=== PATIENT | female | born 1940 | race Caucasian/White ===

== ENCOUNTER 2019-02-05 11:23 | Emergency (ER) | payer MEDICARE ==
[2019-02-05 12:12] LABS: #Eosinphils 0.5 thou/uL (0.0-0.7); #Lymphocytes 0.8 thou/uL (1.20-3.40); #Monocytes 0.5 thou/uL (0.11-0.59); #Neutrophils 2.8 thou/uL (1.40-6.50); %Basophils 0.9 % (0.0-1.0); %Eosinophils 11.3 % (0.0-10.0); %Lymphocytes 16.4 % (21.0-51.0); %Monocytes 11.5 % (0.0-10.0); %Neutrophils 59.9 % (42.0-75.0); Hemoglobin 9.8 g/dL (12.0-16.0); Mean Corpuscular HGB CONC 32.8 g/dL (32.0-36.0); Mean Corpuscular Hemoglobin 30.5 pg (27.0-31.0); Mean Corpuscular Volume 92.9 fL (78.0-98.0); Mean Platelet Volume 8.8 fL (7.4-10.4); Platelet Count 160 thou/uL (130-400); RBC Distribution Width 12.6 % (11.5-14.5); Red Blood Cell (RBC) Count 3.23 mill/uL (4.20-5.40); White Blood Cell (WBC) Count 4.7 thou/uL (4.8-10.8)
[2019-02-05 12:33] LABS: ALT (SGPT) 20 U/L (8-55); AST (SGOT) 18 U/L (5-34); Albumin 4.2 g/dL (3.4-4.8); Alkaline Phosphatase 82 U/L (40-110); Anion Gap 12 mmol/L (10-20); BUN (Urea Nitrogen) 22 mg/dL (9.8-20.1); Bilirubin, Total 0.4 mg/dL (0.2-1.2); Calc. Creatinine Clearance 0 mL/min (70-130); Calcium 9.7 mg/dL (7.8-10.44); Carbon Dioxide 34 mmol/L (23-31); Chloride 101 mmol/L (98-107); Estimated GFR-MDRD 55; Globulin 2.9 g/dL (2.4-3.5); Glucose 119 mg/dL (83-110); Potassium 4.1 mmol/L (3.5-5.1); Protein, Total 7.1 g/dL (6.0-8.3); Sodium 143 mmol/L (136-145)
[2019-02-05] MEDS ORDERED: methylPREDNISolone Sod Succ/PF 125 MG/2 ML VIAL ONE (12:41)
--- NOTE | 2019-02-05 13:28 | RAD ---
FRONTAL RADIOGRAPH CHEST: Date: 02/05/19 COMPARISON: 04/04/14. HISTORY: Pneumonia, cough, shortness of breath. FINDINGS: Heart and mediastinal contours are stable. Mild pulmonary vascular prominence. No pneumothorax or ple ural fluid, No focal consolidation or alveolar edema. There is mild rounded density with blunting of the costophrenic angle on the right which may signify redundant soft tissues, extrapleural fat, or pulmonary nodule. Recommend follow-up nonemergent PA and lateral imaging of the chest. IMPRESSION: Mild irregular contour of the right cardiophrenic angle, significance uncertain on this examination. Follow-up PA and lateral imaging of the chest. CODE T. POS: OFF
== END 2019-02-05 16:00 | disposition home or self-care (01) ==
LOC: ERS 11:23
DX: J44.1 Chronic obstructive pulmonary disease with (acute) exacerbation (principal); I11.0 Hypertensive heart disease with heart failure; I50.9 Heart failure, unspecified; I48.91 Unspecified atrial fibrillation; J44.9 Chronic obstructive pulmonary disease, unspecified; E11.9 Type 2 diabetes mellitus without complications; Z79.82 Long term (current) use of aspirin; Z79.01 Long term (current) use of anticoagulants; Z79.899 Other long term (current) drug therapy
CPT/HCPCS: 36415; 71045; 80053; 83880; 84484; 85025; 93005; 94640; 96374; J2930; J7620

== ENCOUNTER 2019-03-21 10:38 | Outpatient (CLI) | payer MEDICARE ==
--- NOTE | 2019-03-21 11:31 | MMO ---
Bilateral MAMMO Bilat Screen [facility]. CLINICAL HISTORY: Patient is 78 years old and is seen for screening. The patient has no family history of breast cancer. The patient has no personal history of cancer. VIEWS: The views performed were: bilateral craniocaudal with tomosynthesis; bilateral mediolateral oblique with tomosynthesis; right mediolateral oblique; right exaggerated craniocaudal; and cleavage view. This study has been interpreted with the assistance of computer-aided detection. MAMMOGRAM FINDINGS: There are scattered fibroglandular densities. Finding 1: There are stable benign appearing calcifications seen in both breasts. Finding 2: There are stable nodules seen in both breasts. There are no suspicious masses, suspicious calcifications, or new areas of architectural distortion. IMPRESSION: THERE IS NO MAMMOGRAPHIC EVIDENCE OF MALIGNANCY. A ROUTINE FOLLOW-UP MAMMOGRAM IN 1 YEAR IS RECOMMENDED. THE RESULTS OF THIS EXAM WERE SENT TO THE PATIENT. ACR BI-RADS Category 2 - Benign finding MAMMOGRAPHY NOTE: 1. A negative mammogram report should not delay a biopsy if a dominant of clinically suspicious mass is present. 2. Approximately 10% to 15% of breast cancers are not detected by mammography. 3. Adenosis and dense breasts may obscure an underlying neoplasm. Reported by: ABRAHAM BURRIS MD Electonically Signed: [id number]
== END 2019-03-21 10:39 | disposition home or self-care (01) ==
LOC: BICMAMMO 10:38
PROVIDERS: ATTEND Family Medicine
DX: Z12.31 Encounter for screening mammogram for malignant neoplasm of breast (principal)
CPT/HCPCS: 77063; 77067

== ENCOUNTER 2019-10-07 01:41 | Inpatient (IN) | payer MEDICARE, OTHER ==
[2019-10-07 02:23] LABS: #Eosinphils 0.3 thou/uL (0.0-0.7); #Lymphocytes 1.3 thou/uL (1.20-3.40); #Monocytes 0.7 thou/uL (0.11-0.59); #Neutrophils 6.7 thou/uL (1.40-6.50); %Basophils 0.4 % (0.0-1.0); %Eosinophils 3.3 % (0.0-10.0); %Lymphocytes 14.2 % (21.0-51.0); %Neutrophils 74.1 % (42.0-75.0); Hemoglobin 8.7 g/dL (12.0-16.0); Mean Corpuscular HGB CONC 32.7 g/dL (32.0-36.0); Mean Corpuscular Hemoglobin 31.3 pg (27.0-31.0); Mean Corpuscular Volume 95.8 fL (78.0-98.0); Mean Platelet Volume 9.5 fL (7.4-10.4); Platelet Count 194 thou/uL (130-400); RBC Distribution Width 12.3 % (11.5-14.5); Red Blood Cell (RBC) Count 2.79 mill/uL (4.20-5.40)
[2019-10-07 02:29] LABS: INR-International Normal Ratio 2.3; Prothrombin Time 25.1 sec (12.0-14.7)
[2019-10-07 02:30] LABS: PTT 46.1 sec (22.9-36.1)
[2019-10-07 02:55] LABS: ALT (SGPT) 18 U/L (8-55); AST (SGOT) 18 U/L (5-34); Alkaline Phosphatase 78 U/L (40-110); BUN (Urea Nitrogen) 33 mg/dL (9.8-20.1); Bilirubin, Total 0.5 mg/dL (0.2-1.2); Calc. Creatinine Clearance 0 mL/min (70-130); Calcium 9.7 mg/dL (7.8-10.44); Estimated GFR-MDRD 51; Globulin 2.7 g/dL (2.4-3.5); Glucose 195 mg/dL (83-110); Protein, Total 6.7 g/dL (6.0-8.3)
[2019-10-07 03:05] LABS: Anion Gap 15 mmol/L (10-20); Carbon Dioxide 37 mmol/L (23-31); Chloride 98 mmol/L (98-107); Potassium 4.9 mmol/L (3.5-5.1); Sodium 145 mmol/L (136-145)
[2019-10-07 06:12] LABS: Troponin I 0.017 ng/mL (< 0.028)
--- NOTE | 2019-10-07 08:38 | RAD ---
Exam: Chest one view HISTORY:Chest pain. Comparison: 02/05/2019 FINDINGS: Cardiac silhouette:Mild cardiomegaly. Calcification of the mitral annulus. Aorta: Atherosclerosis Pulmonary vessels: Normal Costophrenic angles: Clear LUNGS: Possible right lower lobe infiltrate. Additional chronic lung parenchymal changes are noted. Pneumothorax: None Osseous abnormalities: None IMPRESSION: 1. Cardiomegaly. 2. Right lower lobe opacity likely representing edema or infiltrate. Correlate clinically.
[2019-10-07] MEDS ORDERED: Non-Formulary Item 1 EACH (Albuterol Sulfate Hfa (Or) 2 PUFF) INH PRN (09:44)
[2019-10-07] MEDS ORDERED: Non-Formulary Item 1 EACH (Albuterol Sulfate [Ventolin Hfa] 2 PUFF) INH PRN (09:44)
[2019-10-07] MEDS ORDERED: Dextrose 5% in Water 1,000 ML IV PRN (09:44)
[2019-10-07] MEDS ORDERED: Nitroglycerin 0.4 MG TAB (25 Tab Bottle) PO PRN (09:44)
[2019-10-07] MEDS ORDERED: Dextrose 50% Abboject 50 ML SYRINGE SLOW IVP PRN (09:44)
[2019-10-07 10:04] LABS: Troponin I 0.015 ng/mL (< 0.028)
--- NOTE | 2019-10-07 10:25 | HP ---
DISCHARGE DISPOSITION: Sky Mahan MD FACILITY MANAGER: Parker Shirley MD CHIEF COMPLAINT: "I have real bad sharp pains in my chest in left side." HISTORY OF PRESENT ILLNESS: Ms. Gilman is a very pleasant 79-year-old female who has a history of hypertension and diabetes mellitus. She also has a history of coronary artery disease and says that she was in [place] and had 2 cardiac stents placed last year. She apparently had been doing fairly well since then except in the last month or so, she noticed that when she tried to walk, she would get sharp pains in the left side of her chest and in the last week she has been getting sharp pain in her left chest, which would be unprovoked by any activity and also did not seem to be in relationship to eating. She says when the pains occur it would "take her breath away" and these pains would last anywhere from 15 to 20 minutes. She also had some nausea associated with it and she says that she feels dizzy "all the time." This has not changed. She has noted that she has to sleep propped up on more pillows than usual. Normally, she sleeps on 3 pillows, but lately she has had to increase these and she also notes some palpitations and says that she can tell when her heart goes in and out of atrial fibrillation. She fell at home and could not get up and she says that she believes this is related to whatever is going on in her chest. Her daughter had called 911 and brought her up to the ER for evaluation. REVIEW OF SYSTEMS: All systems were reviewed and are negative except for that mentioned in the history of present illness. PAST MEDICAL HISTORY: Significant for atrial fibrillation, COPD, hypertension, diabetes mellitus, hyperlipidemia, coronary artery disease, and osteoarthritis. PAST SURGICAL HISTORY: She has had bladder stone removed and bilateral total knee replacements as well as 2 stents placed a year ago. ALLERGIES: NO ALLERGIES, BUT SHE IS INTOLERANT TO CODEINE WHICH MAKES HER NAUSEATED. SOCIAL HISTORY: She is , but . She is a former smoker. She quit 10 years ago and prior to that she says she smoked "many years." She has 3 children of her own and Holly, who is her oldest daughter is her surrogate decision maker, but she also lives with her daughter Ebony, who can make decisions as well and she would like to be a full code. FAMILY HISTORY: Significant for cancer, diabetes, and congestive heart failure. CURRENT MEDICATIONS: Include; 1. Albuterol inhaler 2 puffs q.4 hours as needed. 2. Alprazolam 0.5 mg p.o. b.i.d. 3. Aspirin 81 mg p.o. daily. 4. Lipitor 40 mg p.o. daily. 5. Plavix 75 mg p.o. daily. 6. Colchicine 0.6 mg 1 to 2 tablets daily. 7. Isosorbide mononitrate extended release 30 mg p.o. daily. 8. Lisinopril 20 mg daily. 9. Metformin 500 mg p.o. daily. 10. Metoprolol extended release 50 mg p.o. twice a day. 11. Potassium chloride 10 mEq daily. 12. Aldactone 25 mg p.o. daily. 13. Coumadin 5 mg p.o. daily. 14. Lasix 20 mg p.o. daily. PHYSICAL EXAMINATION: GENERAL: She is alert and oriented. She appears to be in no acute distress. She is well developed and well nourished. VITAL SIGNS: Blood pressure was 176/74, heart rate 86, respiratory rate is 16, temperature is 97.6, and O2 saturation was 100% on room air. HEENT: Her pupils are equal, round, and reactive to light. Extraocular muscles are intact. Her sclerae are anicteric. Throat, there is no erythema, no exudates. NECK: No adenopathy. No bruits. LUNGS: She did have some mild expiratory wheeze and occasional rhonchi. There are no rales. CARDIOVASCULAR: She had a normal S1 and S2. I did not appreciate an S3 or S4. No murmurs, clicks, or rubs. ABDOMEN: Obese. It is soft, nontender, and nondistended. Positive for bowel sounds. There is no rebound or guarding. No organomegaly. EXTREMITIES: She had some very mild nonpitting edema. There is no calf tenderness. No joint effusions. NEUROLOGIC: Grossly nonfocal. SKIN AND INTEGUMENT: No significant skin changes. No rash. LABORATORY AND IMAGING: On her chest x-ray, she has evidence of cardiomegaly as well as some haziness in the right lower to mid lung valdivia and this is per my reading on her EKG. The rhythm is regular. However, there are no significant P waves before the QRS. Therefore, it is an undetermined rhythm, the rate was 82. There was nonspecific ST wave changes. On the labs, the white blood cell count is 9, hemoglobin 8.7, hematocrit is 26.7, and platelet count is 194. Her INR was 2.3. On her chemistry; sodium is 145, potassium 4.9, chloride is 98, CO2 is 37, BUN of 33, creatinine 1.04, glucose is 195, and troponin is 0.027. ASSESSMENT: 1. This is a very pleasant 79-year-old female who has a history of hypertension, diabetes, as well as coronary artery disease. She had a stent placement, she says in October of last year in [place]. She had been doing well until the last month, where it appears as if she may be experiencing crescendo angina. She says her symptoms are similar to what she had when she had her stents placed. Given this, she will be placed on observation. We will continue to trend her cardiac enzymes, place her on nitro paste and aspirin, continue her Plavix. We will get an echocardiogram to assess her wall motion and also consult Cardiology for further evaluation. We may also need to see if we can obtain the records from [place]. 2. Diabetes mellitus. We will go ahead and reconcile and restart her home medications with the exception of metformin and continue a sliding scale insulin. 3. Permanent atrial fibrillation. Her heart rate is stable. She appears to be adequately anticoagulated. Her INR is therapeutic and her heart rate is stable. 4. Hypertension. Her blood pressure appears to be a little bit on the higher side. Once again, we will reconcile and restart her home medications and have p.r.n. medications available as needed. Job ID: [id number]
[2019-10-07] MEDS: Nitroglycerin 2% Ointment 1 INCH/1 GM Packet TOP SCH ×2 (13:54→20:48)
[2019-10-07 14:21] LABS: SARS-CoV-2 MS2 Positive; SARS-CoV-2 N Gene Negative; SARS-CoV-2 S Gene Negative; SARS-CoV-2 by NAA Not Detected (NotDetected); SARS-CoV-2 orf1ab Negative
[2019-10-07] MEDS ORDERED: Warfarin Sodium 5 MG TAB PO SCH (17:00)
[2019-10-07] MEDS: Acetaminophen 325 MG TAB PO PRN (20:48)
[2019-10-07] MEDS: Famotidine 20 MG TAB PO SCH (20:48)
[2019-10-08 04:34] LABS: #Eosinphils 0.4 thou/uL (0.0-0.7); #Lymphocytes 1.4 thou/uL (1.20-3.40); #Monocytes 0.7 thou/uL (0.11-0.59); #Neutrophils 5.9 thou/uL (1.40-6.50); %Basophils 0.5 % (0.0-1.0); %Eosinophils 4.2 % (0.0-10.0); %Lymphocytes 16.4 % (21.0-51.0); %Monocytes 8.3 % (0.0-10.0); %Neutrophils 70.7 % (42.0-75.0); Hemoglobin 7.7 g/dL (12.0-16.0); Mean Corpuscular Hemoglobin 31.9 pg (27.0-31.0); Mean Corpuscular Volume 96.7 fL (78.0-98.0); Mean Platelet Volume 9.8 fL (7.4-10.4); Platelet Count 160 thou/uL (130-400); RBC Distribution Width 12.3 % (11.5-14.5); Red Blood Cell (RBC) Count 2.42 mill/uL (4.20-5.40); White Blood Cell (WBC) Count 8.4 thou/uL (4.8-10.8)
[2019-10-08 04:37] LABS: INR-International Normal Ratio 1.7; Prothrombin Time 19.6 sec (12.0-14.7)
[2019-10-08 04:55] LABS: BUN (Urea Nitrogen) 28 mg/dL (9.8-20.1); Calc. Creatinine Clearance 88 mL/min (70-130); Calcium 8.9 mg/dL (7.8-10.44); Cardiac Risk 2.4 (Less than 4.5); Cholesterol 89 mg/dl (< 200 Desired); Estimated GFR-MDRD 69; Glucose 159 mg/dL (83-110); HDL Cholesterol 37 mg/dL (>60 Neg Risk); LDL Cholesterol, Calculated 31 mg/dL; Triglycerides 104 mg/dL (Less than 150)
[2019-10-08 05:04] LABS: Anion Gap 13 mmol/L (10-20); Carbon Dioxide 38 mmol/L (23-31); Chloride 96 mmol/L (98-107); Potassium 4.6 mmol/L (3.5-5.1); Sodium 142 mmol/L (136-145)
[2019-10-08] MEDS: Nitroglycerin 2% Ointment 1 INCH/1 GM Packet TOP SCH (05:48)
[2019-10-08] MEDS: Clopidogrel Bisulfate 75 MG TAB PO SCH (08:13)
[2019-10-08] MEDS: Atorvastatin Calcium 40 MG TAB PO SCH (08:13)
[2019-10-08] MEDS: Aspirin 81 mg Enteric Coated Tablet PO SCH (08:13)
[2019-10-08] MEDS: Lisinopril 20 MG TAB PO SCH (08:14)
[2019-10-08] MEDS: Famotidine 20 MG TAB PO SCH (08:14)
[2019-10-08] MEDS: Spironolactone 25 MG TAB PO SCH (08:14)
--- NOTE | 2019-10-08 08:43 | CON ---
DATE OF CONSULTATION: 10/07/2019 REASON FOR CONSULTATION: Shortness of breath and chest pain. HISTORY OF PRESENT ILLNESS: Ms. Gilman is a pleasant 79-year-old woman whom I have seen and evaluated in the past. She does have a previous history of CAD, status post stent placement. She also recently underwent a noninvasive stress study with a cardiac PET study in April, which showed a normal LVEF and no significant ischemia. Ms. Gilman complains of shortness of breath. This is her main complaint. She states she has difficulty with walking short distances. She does have associated chest pressure. No nausea, vomiting, or other associated symptoms. She also appears to be anemic with a hemoglobin of 8.7. She also appears pale, suggesting worsening anemia. PAST MEDICAL HISTORY: Hypertension; CAD, status post stent placement; paroxysmal atrial fibrillation, on anticoagulation therapy; chronic diastolic dysfunction; COPD; asthma; and diastolic dysfunction. HOME MEDICATIONS: Include: 1. Vitamin B12. 2. Alprazolam. 3. Atorvastatin. 4. Isosorbide. 5. Vitamin D. 6. Metoprolol. 7. Plavix. 8. Ventolin. 9. Lisinopril. 10. Amlodipine. 11. Lasix. 12. Gabapentin. 13. Metformin. 14. Spironolactone. 15. Coumadin. 16. Aspirin. SURGICAL HISTORY: Knee replacement, hysterectomy, bladder suspension, and previous stent placement in [place]. SOCIAL HISTORY: No current tobacco or alcohol use. FAMILY HISTORY: Negative for CAD. REVIEW OF SYSTEMS: A 10-point review of systems is reviewed as above, otherwise negative. PHYSICAL EXAMINATION: VITAL SIGNS: Blood pressure 166/71, pulse 81, and temp 98.4. GENERAL: Patient is a pleasant 79-year-old who is in no acute distress. The patient appears their stated age. The patient does appear pale. NEUROLOGIC: The patient is alert and oriented x3 with no focal neurologic deficits. HEENT: Sclerae without icterus. Mouth has moist mucous membranes with normal pallor. NECK: No JVD. Carotid upstroke brisk. No bruits bilaterally. LUNGS: Clear to auscultation with unlabored respirations. BACK: No scoliosis or kyphosis. CARDIAC: Regular rate and rhythm with normal S1 and S2. No S3 or S4 noted. No significant rubs, murmurs, thrills, or gallops noted throughout the precordium. PMI is not displaced. There is no parasternal heave. ABDOMEN: Soft, nontender, nondistended. No peritoneal signs present. No hepatosplenomegaly. No abnormal striae. EXTREMITIES: 2+ femoral and 2+ dorsalis pedis pulses. No cyanosis, clubbing, or edema. SKIN: No gross abnormalities. PERTINENT LABS: Hemoglobin 8.7, down from 10.7 in August. Creatinine 0.81 and chloride 96. IMPRESSION: 1. Shortness of breath. 2. Chest pain. 3. Anemia. 4. Coronary artery disease. 5. Status post stent placement. RECOMMENDATIONS: Ms. Gilman does appear pale. I am concerned about worsening anemia. If her anemia stabilizes or improves with her current symptoms, would therefore recommend coronary angiography and possible PCI. I discussed the procedure in full detail with Ms. Gilman. Risks including, but not limited to the following: , stroke, DC, need for emergency surgery, loss of limb, bleeding, and infection, as well as a reaction to the dye causing kidney failure and needing long-term dialysis. I also discussed the risks of PCI to include all of the above including coronary dissection and perforation in addition to acute stent thrombosis and restenosis. All questions about the procedure were answered. Given the above, the patient agreed to proceed with coronary angiography and possible PCI. All questions were answered. Given the above, the patient agreed to proceed with above procedure. We will repeat her CBC in a.m. If worsening anemia, her symptom is likely secondary to anemia given a normal recent stress study. We will, therefore, work up anemia. Otherwise, I have no further recommendations. Job ID: [id number]
[2019-10-08] MEDS ORDERED: WARFARIN SODIUM 5 MG PO SCH (09:00)
[2019-10-08] MEDS ORDERED: Docusate 100 MG CAP PO PRN (09:53)
[2019-10-08] MEDS ORDERED: Milk Of Magnesia 30 ML UDCUP PO PRN (09:53)
[2019-10-08] MEDS ORDERED: Furosemide 20 MG TAB PO SCH ×2 (09:55→10:00)
--- NOTE | 2019-10-08 09:58 | PDOC.HOSPP ---
- Subjective Encounter Date: 10/08/19 Encounter Time: 09:56 Subjective: Ms. Gilamn was seen today in follow-up of chest pain. She says she had another episode this morning. She noting any dark stools. She says she is aware she is anemic, but does not know the reason for it.She admits to having ulcers in the past. - Objective Vital Signs & Weight: Vital Signs (12 hours) Temp Pulse Resp BP BP Pulse Ox 10/08/19 08:11 97.9 F 80 16 153/64 H 99 10/08/19 04:00 98.8 F 79 18 148/65 H 99 10/08/19 01:17 98 Weight Weight 211 lb 3.2 oz I&O: 10/07/19 10/08/19 10/09/19 06:59 06:59 06:59 Intake Total 1060 Balance 1060 Result Diagrams: 10/08/19 04:05 10/08/19 04:05 Additional Labs: Accuchecks 10/08/19 10/07/19 10/07/19 05:49 21:08 17:13 POC Glucose 170 H 190 H 143 H 10/07/19 10:46 POC Glucose 182 H Hospitalist ROS - Medication Medications: Active Medications Generic Name Dose Route Start Last Admin Trade Name Freq PRN Reason Stop Dose Admin Acetaminophen 650 mg 10/07/19 09:44 10/07/19 20:48 Tylenol PO 650 mg Q4H PRN Administration Headache/Fever/Mild Pain (1-3) Aspirin 81 mg 10/08/19 09:00 10/08/19 08:13 Ecotrin PO 81 mg DAILY DUONG Administration Atorvastatin Calcium 40 mg 10/08/19 09:00 10/08/19 08:13 Lipitor PO 40 mg DAILY DUONG Administration Clopidogrel Bisulfate 75 mg 10/08/19 09:00 10/08/19 08:13 Plavix PO 75 mg DAILY DUONG Administration Lisinopril 50 mg 10/08/19 09:00 10/08/19 08:14 Zestril PO 50 mg DAILY DUONG Administration Metoprolol Succinate 50 mg 10/07/19 21:00 10/08/19 08:14 Toprol Xl PO 50 mg BID DUONG Administration Nitroglycerin 0.5 inch 10/07/19 14:00 10/08/19 05:48 Nitro-Bid 2% Ointment TOP 0.5 inch Q8HR DUONG Administration Spironolactone 25 mg 10/08/19 09:00 10/08/19 08:14 Aldactone PO 25 mg DAILY DUONG Administration - Exam General Appearance: NAD, awake alert Eye: PERRL, anicteric sclera Heart: RRR, no murmur, no gallops, no rubs, normal peripheral pulses Respiratory: no rales, rhonchi, wheezes (+ occasional rhonchi and wheezing, but kn rales) Gastrointestinal: soft, non-tender, non-distended, normal bowel sounds, no palpable masses Extremities: no cyanosis, no clubbing, 1+ LE edema Hosp A/P (1) Crescendo angina Status: Acute (2) Chronic anticoagulation Code(s): Z79.01 - GUT PULLER (CURRENT) USE OF 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 Status: Acute (3) Anemia Code(s): D64.9 - ANEMIA, UNSPECIFIED Status: Acute (4) Atrial fibrillation Code(s): I48.91 - UNSPECIFIED ATRIAL FIBRILLATION Status: Acute (5) Hypertension Code(s): I10 - ESSENTIAL (PRIMARY) HYPERTENSION Status: Chronic (6) Diabetes mellitus type 2 in obese Code(s): E11.69 - TYPE 2 DIABETES MELLITUS WITH OTHER SPECIFIED COMPLICATION; E66.9 - OBESITY, UNSPECIFIED Status: Chronic - Plan * Unstable/crescendo angina- Agree with Cardiology- this may be exacerbated by the severe anemia * Will check iron studies, and transfuse * Change pepcid to protonix * Echo results noted * HTN- slightly elevated- will re-start her home medications * DM- blood glucose is stable * AFIB- her heart rate is stable, coumadin is on hold due to concern for drop in H&H
[2019-10-08 10:41] LABS: Iron 59 ug/dL (50-170); Iron Binding Capacity, Total 284 mcg/dL (265-497)
--- NOTE | 2019-10-08 11:14 | PDOC.CPN ---
- Subjective Date: 10/08/19 Time: 11:13 Interval history: Feels weak and tired. Had mild CP overnight. - Review of Systems General: reports: fatigue Respiratory: denies: cough, congestion, shortness of breath, exercise intolerance Cardiovascular: reports: chest pain Gastrointestinal: denies: nausea, vomiting, diarrhea, constipation, abd pain, GI bleeding Musculoskeletal: denies: pain, tenderness, stiffness, swelling, arthritis/ arthralgias Neurological: reports: weakness - Objective Allergies/Adverse Reactions: Allergies Allergy/AdvReac Type Severity Reaction Status Date / Time codeine Allergy Mild Emesis Verified 10/07/19 05:19 Visit Medications: Current Medications Acetaminophen (Tylenol) 650 mg PO Q4H PRN PRN Reason: Headache/Fever/Mild Pain (1-3) Last Admin: 10/07/19 20:48 Dose: 650 mg Albuterol Sulfate (Proventil Hfa) 2 puff INH Q4H PRN PRN Reason: SOB Alprazolam (Xanax) 0.5 mg PO BID PRN PRN Reason: Anxiety Aspirin (Ecotrin) 81 mg PO DAILY [facility] Last Admin: 10/08/19 08:13 Dose: 81 mg Atorvastatin Calcium (Lipitor) 40 mg PO DAILY [facility] Last Admin: 10/08/19 08:13 Dose: 40 mg Clopidogrel Bisulfate (Plavix) 75 mg PO DAILY [facility] Last Admin: 10/08/19 08:13 Dose: 75 mg Dextrose/Water (Dextrose 50%) 25 gm SLOW IVP PRN PRN PRN Reason: Hypoglycemia Docusate Sodium (Colace) 100 mg PO BIDPRN PRN PRN Reason: Constipation Last Admin: 10/08/19 10:14 Dose: 100 mg Furosemide (Lasix) 20 mg PO DAILY [facility] Furosemide (Lasix) 20 mg PO NOW [facility] Stop: 10/08/19 12:00 Last Admin: 10/08/19 10:14 Dose: 20 mg Glucagon (Glucagon) 1 mg IM PRN PRN PRN Reason: Hypoglycemia Dextrose/Water (D5w) 1,000 mls @ 0 mls/hr IV .Q0M PRN PRN Reason: Hypoglycemia Insulin Human Lispro (Humalog) 0 units SC .MODERATE SLIDING SC PRN PRN Reason: Moderate Correctional Scale Insulin Human Lispro (Humalog) 0 units SC .BEDTIME SLIDING SC PRN PRN Reason: Bedtime Correctional Scale Isosorbide Mononitrate (Imdur Er) 30 mg PO DAILY [facility] Isosorbide Mononitrate (Imdur Er) 30 mg PO NOW [facility] Stop: 10/08/19 14:00 Lisinopril (Zestril) 50 mg PO DAILY [facility] Last Admin: 10/08/19 08:14 Dose: 50 mg Magnesium Hydroxide (Milk Of Magnesium) 30 ml PO DAILYPRN PRN PRN Reason: Constipation Metoprolol Succinate (Toprol Xl) 50 mg PO BID [facility] Last Admin: 10/08/19 08:14 Dose: 50 mg Nitroglycerin (Nitrostat) 0.4 mg PO Q5MIN PRN PRN Reason: Chest Pain Pantoprazole Sodium (Protonix) 40 mg PO DAILY [facility] Sodium Chloride (Flush - Normal Saline) 10 ml IVF PRN PRN PRN Reason: Saline Flush Spironolactone (Aldactone) 25 mg PO DAILY [facility] Last Admin: 10/08/19 08:14 Dose: 25 mg Vital Signs & Weight: Vital Signs Temp Pulse Resp BP BP Pulse Ox 10/08/19 08:11 97.9 F 80 16 153/64 H 99 10/08/19 04:00 98.8 F 79 18 148/65 H 99 10/08/19 01:17 98 Weight 211 lb 3.2 oz - Physical Exam General: alert & oriented x3, appears well, no apparent distress HEENT: mucus membranes moist Neck: supple neck Cardiac: regular rate and rhythm, no murmur Lungs: clear to auscultation, no wheeze, rales, rhonchi Neuro: grossly intact Abdomen: soft, non-tender Extremities: no cyanosis, no clubbing Skin: clear Musculoskeletal: no pain - Labs Result Diagrams: 10/08/19 04:05 10/08/19 04:05 Troponin/CKMB Troponin I 0.015 ng/mL (< 0.028) 10/07/19 09:33 - Assessment/Plan Assessment/Plan: 1. Chest pain 2. Acute symptomatic anemia 3. CAD s/p PCI 4. HTN Will d/c nitro-patch and resume ImDur. Pain sounds atypical in nature. Hold ACT and transfuse per primary team. Patient reports colonoscopy a few years ago. May need repeat GI consult. 10/08/2019 RG Agree with the above. Symptoms likley related to anemia and anot angina. Recent nromal stress test. Treat medically from a CV standpoint
[2019-10-08] MEDS: HumaLOG 300 UNITS/3 ML VIAL SC PRN (12:57)
[2019-10-08] MEDS: PROVENTIL INHALER 6.7 G (200 INHALATIONS) INH PRN (22:50)
[2019-10-09 04:40] LABS: INR-International Normal Ratio 1.3; Prothrombin Time 15.7 sec (12.0-14.7)
[2019-10-09] MEDS: HumaLOG 300 UNITS/3 ML VIAL SC PRN (06:35)
[2019-10-09 08:02] LABS: #Basophils 0.1 thou/uL (0.0-0.2); #Eosinphils 0.3 thou/uL (0.0-0.7); #Lymphocytes 1.2 thou/uL (1.20-3.40); #Monocytes 0.7 thou/uL (0.11-0.59); #Neutrophils 7.2 thou/uL (1.40-6.50); %Basophils 0.5 % (0.0-1.0); %Eosinophils 3.3 % (0.0-10.0); %Lymphocytes 12.3 % (21.0-51.0); %Monocytes 7.2 % (0.0-10.0); %Neutrophils 76.6 % (42.0-75.0); Hemoglobin 8.5 g/dL (12.0-16.0); Mean Corpuscular HGB CONC 32.8 g/dL (32.0-36.0); Mean Corpuscular Hemoglobin 31.4 pg (27.0-31.0); Mean Corpuscular Volume 95.6 fL (78.0-98.0); Mean Platelet Volume 9.6 fL (7.4-10.4); Platelet Count 175 thou/uL (130-400); Red Blood Cell (RBC) Count 2.71 mill/uL (4.20-5.40); White Blood Cell (WBC) Count 9.4 thou/uL (4.8-10.8)
[2019-10-09 08:06] LABS: BUN (Urea Nitrogen) 29 mg/dL (9.8-20.1); Calc. Creatinine Clearance 81 mL/min (70-130); Calcium 9.1 mg/dL (7.8-10.44); Estimated GFR-MDRD 62; Glucose 148 mg/dL (83-110)
[2019-10-09 08:14] LABS: Anion Gap 14 mmol/L (10-20); Carbon Dioxide 36 mmol/L (23-31); Chloride 96 mmol/L (98-107); Potassium 4.6 mmol/L (3.5-5.1); Sodium 141 mmol/L (136-145)
[2019-10-09] MEDS: Aspirin 81 mg Enteric Coated Tablet PO SCH (08:49)
[2019-10-09] MEDS: Clopidogrel Bisulfate 75 MG TAB PO SCH (08:50)
[2019-10-09] MEDS: Spironolactone 25 MG TAB PO SCH (08:50)
[2019-10-09] MEDS: Furosemide 20 MG TAB PO SCH (08:50)
[2019-10-09] MEDS: Atorvastatin Calcium 40 MG TAB PO SCH (08:50)
[2019-10-09] MEDS: Lisinopril 20 MG TAB PO SCH (08:51)
[2019-10-09] MEDS: PROVENTIL INHALER 6.7 G (200 INHALATIONS) INH PRN (08:57)
--- NOTE | 2019-10-09 10:01 | PDOC.HOSPP ---
- Subjective Encounter Date: 10/09/19 Encounter Time: 09:58 Subjective: Ms. Gilman was seen today in follow-up of chest pain. She says she feels weak. She says she has trouble walking due to weakness in her knees. She says she is not sure if she can care for herself at home. - Objective Vital Signs & Weight: Vital Signs (12 hours) Temp Pulse Resp BP Pulse Ox 10/09/19 08:57 80 20 95 10/09/19 08:00 97.6 F 89 19 152/65 H 98 10/09/19 04:05 97.8 F 80 18 144/66 H 96 10/09/19 00:26 97 10/08/19 22:50 71 18 97 10/08/19 22:30 80 20 144/76 H 96 Weight Weight 211 lb 6.4 oz I&O: 10/08/19 10/09/19 10/10/19 06:59 06:59 06:59 Intake Total 1060 1190 Output Total 500 Balance 1060 690 Result Diagrams: 10/09/19 07:43 10/09/19 07:43 Additional Labs: Accuchecks 10/09/19 10/08/19 10/08/19 05:28 20:02 16:27 POC Glucose 175 H 207 H 154 H 10/08/19 10:45 POC Glucose 233 H Hospitalist ROS - Medication Medications: Active Medications Generic Name Dose Route Start Last Admin Trade Name Freq PRN Reason Stop Dose Admin Acetaminophen 650 mg 10/07/19 09:44 10/07/19 20:48 Tylenol PO 650 mg Q4H PRN Administration Headache/Fever/Mild Pain (1-3) Albuterol Sulfate 2 puff 10/07/19 09:52 10/09/19 08:57 Proventil Hfa INH 2 puff Q4H PRN Administration SOB Aspirin 81 mg 10/08/19 09:00 10/09/19 08:49 Ecotrin PO 81 mg DAILY DUONG Administration Atorvastatin Calcium 40 mg 10/08/19 09:00 10/09/19 08:50 Lipitor PO 40 mg DAILY DOUNG Administration Clopidogrel Bisulfate 75 mg 10/08/19 09:00 10/09/19 08:50 Plavix PO 75 mg DAILY DUONG Administration Docusate Sodium 100 mg 10/08/19 09:53 10/08/19 10:14 Colace PO 100 mg BIDPRN PRN Administration Constipation Furosemide 20 mg 10/09/19 09:00 10/09/19 08:50 Lasix PO 20 mg DAILY DUONG Administration Insulin Human Lispro 0 units 10/07/19 09:44 10/09/19 06:35 Humalog SC 2 unit .MODERATE SLIDING SC PRN Administration Moderate Correctional Scale Isosorbide Mononitrate 30 mg 10/09/19 09:00 10/09/19 08:50 Imdur Er PO 30 mg DAILY DUONG Administration Lisinopril 50 mg 10/08/19 09:00 10/09/19 08:51 Zestril PO 50 mg DAILY DUONG Administration Metoprolol Succinate 50 mg 10/07/19 21:00 10/09/19 08:50 Toprol Xl PO 50 mg BID DUONG Administration Pantoprazole Sodium 40 mg 10/09/19 09:00 10/09/19 08:50 Protonix PO 40 mg DAILY DUONG Administration Spironolactone 25 mg 10/08/19 09:00 10/09/19 08:50 Aldactone PO 25 mg DAILY DUONG Administration - Exam Eye: PERRL, anicteric sclera Heart: RRR, no murmur, no gallops, no rubs, normal peripheral pulses Respiratory: CTAB (with occasional wheeze) Gastrointestinal: soft, non-tender, normal bowel sounds Extremities: no cyanosis, no edema Hosp A/P (1) Crescendo angina Status: Acute (2) Chronic anticoagulation Code(s): Z79.01 - LIFE ASSURANCE REPRESENTATIVE (CURRENT) USE OF 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 Status: Acute (3) Anemia Code(s): D64.9 - ANEMIA, UNSPECIFIED Status: Acute (4) Atrial fibrillation Code(s): I48.91 - UNSPECIFIED ATRIAL FIBRILLATION Status: Acute (5) Hypertension Code(s): I10 - ESSENTIAL (PRIMARY) HYPERTENSION Status: Chronic (6) Diabetes mellitus type 2 in obese Code(s): E11.69 - TYPE 2 DIABETES MELLITUS WITH OTHER SPECIFIED COMPLICATION; E66.9 - OBESITY, UNSPECIFIED Status: Chronic - Plan * Chest pain- not felt to be cardiac in origin- can discontinue telemetry * Symptomatic anemia- will transfuse one more unit- iron studies are most consistent with anemia of chronic disease * Stool for occult blood is negative * HTN-continue her home medications * DM- blood glucose is stable * [id number] coumadin * She can be trnaferred to Medical * PT/OT consult, and will screen for alf placement
--- NOTE | 2019-10-09 12:09 | PRG ---
DATE OF SERVICE: 10/09/2019 SUBJECTIVE: Ms. Gilman is doing better. After transfusion, her hemoglobin increased to 8.5. No current complaints. OBJECTIVE: VITAL SIGNS: Blood pressure 142/68, pulse 71, and temperature 97.2. LUNGS: Clear to auscultation. HEART: Regular rate and rhythm. ABDOMEN: Soft, nontender, nondistended. EXTREMITIES: No edema. IMPRESSION: 1. Shortness of breath. 2. Chest pain. 3. Anemia. 4. Atrial fibrillation, on anticoagulation therapy. RECOMMENDATIONS: Ms. Gilman's symptoms were not felt to be due to angina. She had a normal stress study performed within the last 4 months. Symptom is secondary to anemia. At this point, we would continue current course. We would have no changes from a cardiac standpoint. We would need to seek the cause of her anemia. Continue atorvastatin in addition to aspirin and Plavix for now. We will need to restart Coumadin once the source of bleeding has been noted. We would recommend stopping Plavix and continuing aspirin. Otherwise, continue isosorbide, lisinopril, and metoprolol. We will follow peripherally. Job ID: [id number]
[2019-10-09] MEDS: Acetaminophen 325 MG TAB PO PRN (13:34)
[2019-10-09 15:14] LABS: #Eosinphils 0.3 thou/uL (0.0-0.7); #Monocytes 0.9 thou/uL (0.11-0.59); #Neutrophils 7.7 thou/uL (1.40-6.50); %Basophils 0.3 % (0.0-1.0); %Eosinophils 3.3 % (0.0-10.0); %Lymphocytes 10.2 % (21.0-51.0); %Neutrophils 77.2 % (42.0-75.0); Hemoglobin 8.1 g/dL (12.0-16.0); Mean Corpuscular HGB CONC 32.6 g/dL (32.0-36.0); Mean Corpuscular Hemoglobin 31.2 pg (27.0-31.0); Mean Corpuscular Volume 95.8 fL (78.0-98.0); Platelet Count 192 thou/uL (130-400); RBC Distribution Width 12.7 % (11.5-14.5); Red Blood Cell (RBC) Count 2.58 mill/uL (4.20-5.40)
[2019-10-09] MEDS: Warfarin Sodium 5 MG TAB PO SCH (18:10)
[2019-10-10 05:47] LABS: #Eosinphils 0.3 thou/uL (0.0-0.7); #Lymphocytes 0.9 thou/uL (1.20-3.40); #Monocytes 0.9 thou/uL (0.11-0.59); #Neutrophils 7.8 thou/uL (1.40-6.50); %Basophils 0.4 % (0.0-1.0); %Eosinophils 2.9 % (0.0-10.0); %Lymphocytes 9.3 % (21.0-51.0); %Neutrophils 78.4 % (42.0-75.0); Hemoglobin 9.1 g/dL (12.0-16.0); Mean Corpuscular HGB CONC 32.1 g/dL (32.0-36.0); Mean Corpuscular Hemoglobin 30.1 pg (27.0-31.0); Mean Corpuscular Volume 93.9 fL (78.0-98.0); Mean Platelet Volume 9.8 fL (7.4-10.4); Platelet Count 168 thou/uL (130-400); RBC Distribution Width 13.9 % (11.5-14.5); Red Blood Cell (RBC) Count 3.02 mill/uL (4.20-5.40); White Blood Cell (WBC) Count 9.9 thou/uL (4.8-10.8)
[2019-10-10 06:13] LABS: INR-International Normal Ratio 1.1; Prothrombin Time 14.1 sec (12.0-14.7)
[2019-10-10] MEDS: Aspirin 81 mg Enteric Coated Tablet PO SCH (08:44)
[2019-10-10] MEDS: Atorvastatin Calcium 40 MG TAB PO SCH (08:45)
[2019-10-10] MEDS: Furosemide 20 MG TAB PO SCH (08:46)
[2019-10-10] MEDS: Lisinopril 20 MG TAB PO SCH (08:46)
[2019-10-10] MEDS: Spironolactone 25 MG TAB PO SCH (08:50)
[2019-10-10] MEDS: Clopidogrel Bisulfate 75 MG TAB PO SCH (08:50)
[2019-10-10] MEDS: ALPRAZolam 0.5 MG TAB PO PRN (09:35)
[2019-10-10] MEDS: Acetaminophen 325 MG TAB PO PRN ×2 (09:35→20:08)
[2019-10-10] MEDS: HumaLOG 300 UNITS/3 ML VIAL SC PRN (11:48)
--- NOTE | 2019-10-10 14:35 | PDOC.HOSPP ---
- Subjective Encounter Date: 10/10/19 Encounter Time: 14:33 Subjective: Ms. Gilman was seen today in follow-up of generalized weakness. The chest pain has resolved. She says she is extremely weak, and says she feels shaky. She says she is barely able to stand due to left knee weakness. - Objective Vital Signs & Weight: Vital Signs (12 hours) Temp Pulse Resp BP BP BP Pulse Ox 10/10/19 11:12 98.3 F 74 16 149/68 H 98 10/10/19 09:19 10/10/19 08:46 173/55 H 10/10/19 08:32 10/10/19 08:00 100 10/10/19 07:45 98.4 F 86 16 173/55 H 97 10/10/19 04:00 98.5 F 78 20 122/70 99 Pulse Ox Pulse Ox 10/10/19 11:12 10/10/19 09:19 98 10/10/19 08:46 10/10/19 08:32 100 99 10/10/19 08:00 10/10/19 07:45 10/10/19 04:00 Weight Weight 207 lb I&O: 10/09/19 10/10/19 10/11/19 06:59 06:59 06:59 Intake Total 1190 1810 120 Output Total 500 Balance 690 1810 120 Result Diagrams: 10/10/19 05:14 10/09/19 07:43 Additional Labs: Accuchecks 10/10/19 10/10/19 10/09/19 11:22 04:29 19:26 POC Glucose 188 H 167 H 214 H 10/09/19 17:28 POC Glucose 141 H Hospitalist ROS - Medication Medications: Active Medications Generic Name Dose Route Start Last Admin Trade Name Freq PRN Reason Stop Dose Admin Acetaminophen 650 mg 10/07/19 09:44 10/10/19 09:35 Tylenol PO 650 mg Q4H PRN Administration Headache/Fever/Mild Pain (1-3) Albuterol Sulfate 2 puff 10/07/19 09:52 10/09/19 08:57 Proventil Hfa INH 2 puff Q4H PRN Administration SOB Alprazolam 0.5 mg 10/07/19 09:44 10/10/19 09:35 Xanax PO 0.5 mg BID PRN Administration Anxiety Aspirin 81 mg 10/08/19 09:00 10/10/19 08:44 Ecotrin PO 81 mg DAILY DUONG Administration Atorvastatin Calcium 40 mg 10/08/19 09:00 10/10/19 08:45 Lipitor PO 40 mg DAILY DUONG Administration Clopidogrel Bisulfate 75 mg 10/08/19 09:00 10/10/19 08:50 Plavix PO 75 mg DAILY DUONG Administration Docusate Sodium 100 mg 10/08/19 09:53 10/08/19 10:14 Colace PO 100 mg BIDPRN PRN Administration Constipation Furosemide 20 mg 10/09/19 09:00 10/10/19 08:46 Lasix PO 20 mg DAILY DUONG Administration Insulin Human Lispro 0 units 10/07/19 09:44 10/10/19 11:48 Humalog SC 2 unit .MODERATE SLIDING SC PRN Administration Moderate Correctional Scale Isosorbide Mononitrate 30 mg 10/09/19 09:00 10/10/19 08:46 Imdur Er PO 30 mg DAILY DUONG Administration Lisinopril 50 mg 10/08/19 09:00 10/10/19 08:46 Zestril PO 50 mg DAILY DUONG Administration Metoprolol Succinate 50 mg 10/07/19 21:00 10/10/19 08:45 Toprol Xl PO 50 mg BID DUONG Administration Pantoprazole Sodium 40 mg 10/09/19 09:00 10/10/19 08:45 Protonix PO 40 mg DAILY DUONG Administration Spironolactone 25 mg 10/08/19 09:00 10/10/19 08:50 Aldactone PO 25 mg DAILY DUONG Administration Warfarin Sodium 5 mg 10/09/19 17:00 10/09/19 18:10 Coumadin PO 5 mg 1700 DUONG Administration - Exam Eye: PERRL, anicteric sclera Heart: RRR, no murmur, no gallops, no rubs, normal peripheral pulses Respiratory: wheezes Gastrointestinal: soft, non-tender, non-distended, normal bowel sounds, no palpable masses Extremities: no cyanosis, 1+ LE edema Hosp A/P (1) Crescendo angina Status: Acute (2) Chronic anticoagulation Code(s): 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 Status: Acute (3) Anemia Code(s): D64.9 - ANEMIA, UNSPECIFIED Status: Acute (4) Atrial fibrillation Code(s): I48.91 - UNSPECIFIED ATRIAL FIBRILLATION Status: Acute (5) Hypertension Code(s): I10 - ESSENTIAL (PRIMARY) HYPERTENSION Status: Chronic (6) Diabetes mellitus type 2 in obese Code(s): E11.69 - TYPE 2 DIABETES MELLITUS WITH OTHER SPECIFIED COMPLICATION; E66.9 - OBESITY, UNSPECIFIED Status: Chronic - Plan * Chest pain-resolved * Symptomatic anemia- she had appropriate response after transfusion * Stool for occult blood is negative * HTN-continue her home medications * DM- blood glucose is stable * AFIB- heart rate is stable- her INR is subtherapeutic- will give a dose of 7.5mg tonight * jail screen has been placed.
[2019-10-10] MEDS: Warfarin Sodium 5 MG TAB PO SCH (16:25)
[2019-10-11] MEDS: Acetaminophen 325 MG TAB PO PRN ×2 (05:40→19:45)
[2019-10-11] MEDS: HumaLOG 300 UNITS/3 ML VIAL SC PRN ×2 (05:40→11:54)
[2019-10-11 06:09] LABS: INR-International Normal Ratio 1.3
[2019-10-11] MEDS: Lisinopril 20 MG TAB PO SCH (09:53)
[2019-10-11] MEDS: Furosemide 20 MG TAB PO SCH (09:53)
[2019-10-11] MEDS: Spironolactone 25 MG TAB PO SCH (09:53)
[2019-10-11] MEDS: Aspirin 81 mg Enteric Coated Tablet PO SCH (09:53)
[2019-10-11 09:54] LABS: Thyroid Stimulating Hormone 1.2397 uIU/mL (0.35-4.94); Vitamin D, 25 Hydroxy 56.7 ng/ml (> 30.0)
[2019-10-11] MEDS: Atorvastatin Calcium 40 MG TAB PO SCH (09:56)
[2019-10-11] MEDS: Clopidogrel Bisulfate 75 MG TAB PO SCH (09:56)
--- NOTE | 2019-10-11 14:49 | PDOC.HOSPP ---
- Subjective Encounter Date: 10/11/19 Encounter Time: 14:47 Subjective: Ms. Gilman is complaining of pain in both ankles, but mostly in the left ankle, especially when she places weight on it. She says it feels like when she had a gout attack in the past. - Objective Vital Signs & Weight: Vital Signs (12 hours) Temp Pulse Resp BP Pulse Ox 10/11/19 12:06 98.1 F 71 20 123/84 100 10/11/19 08:34 99.1 F 75 18 143/77 H 95 10/11/19 04:30 98 F 79 20 151/69 H 99 Weight Weight 208 lb 15.971 oz I&O: 10/10/19 10/11/19 10/12/19 06:59 06:59 06:59 Intake Total 1810 1440 Output Total 400 Balance 1810 1040 Result Diagrams: 10/10/19 05:14 10/09/19 07:43 Additional Labs: Accuchecks 10/11/19 10/11/19 10/10/19 11:44 04:15 19:13 POC Glucose 215 H 189 H 185 H 10/10/19 15:40 POC Glucose 153 H Hospitalist ROS - Medication Medications: Active Medications Generic Name Dose Route Start Last Admin Trade Name Freq PRN Reason Stop Dose Admin Acetaminophen 650 mg 10/07/19 09:44 10/11/19 05:40 Tylenol PO 650 mg Q4H PRN Administration Headache/Fever/Mild Pain (1-3) Albuterol Sulfate 2 puff 10/07/19 09:52 10/09/19 08:57 Proventil Hfa INH 2 puff Q4H PRN Administration SOB Alprazolam 0.5 mg 10/07/19 09:44 10/10/19 09:35 Xanax PO 0.5 mg BID PRN Administration Anxiety Aspirin 81 mg 10/08/19 09:00 10/11/19 09:53 Ecotrin PO 81 mg DAILY DUONG Administration Atorvastatin Calcium 40 mg 10/08/19 09:00 10/11/19 09:56 Lipitor PO 40 mg DAILY DUONG Administration Clopidogrel Bisulfate 75 mg 10/08/19 09:00 10/11/19 09:56 Plavix PO 75 mg DAILY DUONG Administration Docusate Sodium 100 mg 10/08/19 09:53 10/08/19 10:14 Colace PO 100 mg BIDPRN PRN Administration Constipation Furosemide 20 mg 10/09/19 09:00 10/11/19 09:53 Lasix PO 20 mg DAILY DUONG Administration Insulin Human Lispro 0 units 10/07/19 09:44 10/11/19 11:54 Humalog SC 4 unit .MODERATE SLIDING SC PRN Administration Moderate Correctional Scale Isosorbide Mononitrate 30 mg 10/09/19 09:00 10/11/19 09:56 Imdur Er PO 30 mg DAILY DUONG Administration Lisinopril 50 mg 10/08/19 09:00 10/11/19 09:53 Zestril PO 50 mg DAILY DUONG Administration Metoprolol Succinate 50 mg 10/07/19 21:00 10/11/19 09:56 Toprol Xl PO 50 mg BID DUONG Administration Pantoprazole Sodium 40 mg 10/09/19 09:00 10/11/19 09:56 Protonix PO 40 mg DAILY DUONG Administration Spironolactone 25 mg 10/08/19 09:00 10/11/19 09:53 Aldactone PO 25 mg DAILY DUONG Administration Warfarin Sodium 5 mg 10/09/19 17:00 10/10/19 16:25 Coumadin PO 5 mg 1700 DUONG Administration - Exam Eye: PERRL, anicteric sclera Heart: RRR, no murmur, no gallops, no rubs, normal peripheral pulses Respiratory: wheezes (+ occsional wheezing, and coarse breath sounds) Gastrointestinal: soft, non-tender, non-distended, normal bowel sounds, no palpable masses Extremities: no cyanosis, no edema Hosp A/P (1) Ankle pain, left Code(s): M25.572 - PAIN IN LEFT ANKLE AND JOINTS OF LEFT FOOT Status: Acute (2) Chronic anticoagulation Code(s): Z79.01 - ALF (CURRENT) USE OF 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 Status: Acute (3) Crescendo angina Status: Acute (4) Anemia Code(s): D64.9 - ANEMIA, UNSPECIFIED Status: Acute (5) Atrial fibrillation Code(s): I48.91 - UNSPECIFIED ATRIAL FIBRILLATION Status: Acute (6) Hypertension Code(s): I10 - ESSENTIAL (PRIMARY) HYPERTENSION Status: Chronic (7) Diabetes mellitus type 2 in obese Code(s): E11.69 - TYPE 2 DIABETES MELLITUS WITH OTHER SPECIFIED COMPLICATION; E66.9 - OBESITY, UNSPECIFIED Status: Chronic (8) Physical deconditioning Code(s): R53.81 - OTHER MALAISE Status: Chronic - Plan * Ankle pain- Probable gout-, however she had a fall a few days ago at home, so will check an X-ray to rule out fracture * She has some weakness in her lower extremities, negative straight leg raises- will check a CT of the L-s Spine * Will also check a TSH and Vitamin D levels * She has significant day time sleepiness- She was scheduled to have a sleep study by her primary care provider, but did not follow through with it- will check an ABG to see if she has hypercapnea * Anemia of chronic disease- stable * HTN-continue her home medications * DM- blood glucose is stable * AFIB- heart rate is stable- her INR is subtherapeutic- will give a dose of 7.5mg tonight * intermediate screen has been placed.
--- NOTE | 2019-10-11 16:03 | RAD ---
EXAM: LEFT ANKLE THREE VIEWS: 10/11/19 HISTORY: Ankle pain. FINDINGS: There is bone demineralization. Prominent calcaneal Achilles and plantar enthesophytes. No evidence for acute fracture or dislocation. IMPRESSION: Bone demineralization with prominent calcaneal Achilles and plantar enthesophytes. No fracture or dis location. POS: RRE
--- NOTE | 2019-10-11 16:05 | RAD ---
EXAM: LEFT FOOT THREE VIEWS: 10/11/19 HISTORY: Left foot pain following injury from a fall. Bone demineralization with arthrosis and degenerative change. Evidence for hallux valgus deformity of the foot. Minimal soft tissue swelling over the region of the forefoot. IMPRESSION: Bone demineralization with hallux valgus deformity of the great toe without acute fracture or disloca tion. Minimal dorsal soft tissue swelling of the forefoot. POS: RRE
[2019-10-11] MEDS ORDERED: Warfarin Sodium 7.5 MG TAB PO SCH (17:00)
[2019-10-11 17:07] LABS: Actual Bicarbonate (HCO3a) 47.8 mEq/L (22-28); Analyzer IN Cardio ER; Base Excess (BEa) 18.6 mEq/L (-2.0 to +3.0); Calcium, Ionized (arterial) 1.14 mmol/L (1.12-1.30); Hemoglobin (Hb) 8.9 g/dL (12.0-16.0); O2 Tension (PaO2), arterial 85.3 mmHg (> 70.0); Potassium - ABG Lab 4.87 mmol/L (3.70-5.30); pH, Arterial 7.31 (7.35-7.45)
[2019-10-11 17:12] LABS: CO2 Tension 96.4 mmHg (35.0-45.0); Puncture Site L.R.
--- NOTE | 2019-10-11 17:16 | CT ---
NONCONTRAST CT LUMBAR SPINE: 10/11/19 HISTORY: Bilateral lower extremity weakness. COMPARISON: None. FINDINGS: Limited visualized posterior lung bases are clear. Vascular calcifications are seen in the abdominal aorta and in the iliac arteries. Remaining visualized retroperitoneal structures demonstrate a grossl y normal nonenhanced CT appearance. The vertebral body heights are within normal limits. No fracture is seen involving the lumbar spine. Grade I anterolisthesis of L4 on L5 is present measuring 4 to 5 mm. Vacuum phenomenon is seen in the intervertebral disc at all levels of the lumbar spine. Prominent facet degenerative changes are seen in the lower lumbar spine. T12-L1 level: No significant central canal or neural foraminal narrowing. L1-2 level: Loss of intervertebral disc height. Mild disc osteophyte complex is present. Central spin al canal and neural foramina are patent. L2-3 level: Mild broad based disc osteophyte complex is present with slight effacement of the ventral subarachnoid space. Neural foramina are patent. L3-4 level: There is a broad based disc osteophyte complex with facet hypertrophic changes and ligame ntous thickening. Findings result in moderate central canal narrowing. There is mild left sided neura l foraminal narrowing. The right neural foramen is patent. L4-5 level: This is level of grade I anterolisthesis. Prominent facet hypertrophic changes and ligame ntous thickening are present. There is a broad based disc osteophyte complex present. Findings result in severe narrowing of the central spinal canal with narrowing of the lateral recesses at this level . There is mild to moderate right and moderate left sided neural foraminal narrowing. L5-S1 level: There is loss of intervertebral disc height with mild end plate degenerative changes. Mi ld disc osteophyte complex and prominent facet hypertrophic changes are seen. There is no significant central canal narrowing. Mild bilateral neural foraminal narrowing is present. IMPRESSION: Multilevel degenerative changes in the lumbar spine greatest at the L4-5 level where there is associa rom grade I anterolisthesis with disc osteophyte complex resulting in severe central canal narrowing as well as mild to moderate bilateral neural foraminal narrowing. POS: HARISH
[2019-10-11] MEDS: ALPRAZolam 0.5 MG TAB PO PRN (22:39)
[2019-10-12 03:51] LABS: #Eosinphils 0.3 thou/uL (0.0-0.7); #Monocytes 1.3 thou/uL (0.11-0.59); #Neutrophils 8.4 thou/uL (1.40-6.50); %Basophils 0.1 % (0.0-1.0); %Eosinophils 2.5 % (0.0-10.0); %Lymphocytes 9.2 % (21.0-51.0); %Monocytes 11.7 % (0.0-10.0); %Neutrophils 76.5 % (42.0-75.0); Hemoglobin 8.6 g/dL (12.0-16.0); Mean Corpuscular HGB CONC 32.8 g/dL (32.0-36.0); Mean Corpuscular Hemoglobin 31.3 pg (27.0-31.0); Mean Corpuscular Volume 95.2 fL (78.0-98.0); Platelet Count 197 thou/uL (130-400); RBC Distribution Width 13.7 % (11.5-14.5); Red Blood Cell (RBC) Count 2.76 mill/uL (4.20-5.40)
[2019-10-12 04:09] LABS: INR-International Normal Ratio 1.7; Prothrombin Time 20.2 sec (12.0-14.7)
[2019-10-12 04:15] LABS: BUN (Urea Nitrogen) 38 mg/dL (9.8-20.1); Calc. Creatinine Clearance 71 mL/min (70-130); Calcium 8.9 mg/dL (7.8-10.44); Estimated GFR-MDRD 54; Glucose 159 mg/dL (83-110); Uric Acid 9.5 mg/dL (2.6-6.0)
[2019-10-12 04:24] LABS: Anion Gap 16 mmol/L (10-20); Carbon Dioxide 37 mmol/L (23-31); Chloride 94 mmol/L (98-107); Potassium 4.9 mmol/L (3.5-5.1); Sodium 142 mmol/L (136-145)
[2019-10-12] MEDS: HumaLOG 300 UNITS/3 ML VIAL SC PRN ×2 (06:03→20:46)
[2019-10-12] MEDS: Aspirin 81 mg Enteric Coated Tablet PO SCH (08:06)
[2019-10-12] MEDS: Lisinopril 20 MG TAB PO SCH (08:06)
[2019-10-12] MEDS: Spironolactone 25 MG TAB PO SCH (08:06)
[2019-10-12] MEDS: Clopidogrel Bisulfate 75 MG TAB PO SCH (08:07)
[2019-10-12] MEDS: Atorvastatin Calcium 40 MG TAB PO SCH (08:07)
[2019-10-12] MEDS: Furosemide 20 MG TAB PO SCH (08:07)
[2019-10-12 08:11] LABS: Actual Bicarbonate (HCO3a) 45.5 mEq/L (22-28); Calcium, Ionized (arterial) 1.15 mmol/L (1.12-1.30); Carboxyhemoglobin (COHb) 0.8 gm% (0.0-3.0); Hemoglobin (Hb) 9.4 g/dL (12.0-16.0); O2 Tension (PaO2), arterial 80.1 mmHg (> 70.0); Potassium - ABG Lab 4.76 mmol/L (3.70-5.30); pH, Arterial 7.35 (7.35-7.45)
[2019-10-12 08:18] LABS: ALV-art Gradient 13.665 (0-20); CO2 Tension 84.7 mmHg (35.0-45.0); Puncture Site LRA
--- NOTE | 2019-10-12 08:49 | PDOC.HOSPP ---
- Subjective Encounter Date: 10/12/19 Encounter Time: 08:48 Subjective: Ms. Gilman was seen today in follow-up of Hypercapnic respiratory failure. She is awake and alert, but becomes very sleepy. She notes continued pain in her ankle. No new complaints. - Objective Vital Signs & Weight: Vital Signs (12 hours) Temp Pulse Resp Pulse Ox 10/12/19 07:13 98.7 F 10/12/19 04:00 97.6 F 10/12/19 02:10 77 22 H 94 L 10/12/19 00:00 98.0 F Weight Weight 207 lb 7.28 oz Most Recent Monitor Data Heart Rate from ECG 85 NIBP 146/71 NIBP BP-Mean 96 Respiration from ECG 16 SpO2 100 I&O: 10/11/19 10/12/19 10/13/19 06:59 06:59 06:59 Intake Total 1440 600 Output Total 400 550 Balance 1040 50 Result Diagrams: 10/12/19 03:17 10/12/19 03:17 Additional Labs: Accuchecks 10/12/19 10/11/19 10/11/19 06:01 20:41 16:32 POC Glucose 183 H 236 H 142 H 10/11/19 11:44 POC Glucose 215 H Hospitalist ROS - Medication Medications: Active Medications Generic Name Dose Route Start Last Admin Trade Name Freq PRN Reason Stop Dose Admin Acetaminophen 650 mg 10/07/19 09:44 10/11/19 19:45 Tylenol PO 650 mg Q4H PRN Administration Headache/Fever/Mild Pain (1-3) Albuterol Sulfate 2 puff 10/07/19 09:52 10/09/19 08:57 Proventil Hfa INH 2 puff Q4H PRN Administration SOB Alprazolam 0.5 mg 10/07/19 09:44 10/11/19 22:39 Xanax PO 0.5 mg BID PRN Administration Anxiety Aspirin 81 mg 10/08/19 09:00 10/12/19 08:06 Ecotrin PO 81 mg DAILY DUONG Administration Atorvastatin Calcium 40 mg 10/08/19 09:00 10/12/19 08:07 Lipitor PO 40 mg DAILY DUONG Administration Clopidogrel Bisulfate 75 mg 10/08/19 09:00 10/12/19 08:07 Plavix PO 75 mg DAILY DUONG Administration Docusate Sodium 100 mg 10/08/19 09:53 10/08/19 10:14 Colace PO 100 mg BIDPRN PRN Administration Constipation Furosemide 20 mg 10/09/19 09:00 10/12/19 08:07 Lasix PO 20 mg DAILY DUONG Administration Insulin Human Lispro 0 units 10/07/19 09:44 10/12/19 06:03 Humalog SC 2 unit .MODERATE SLIDING SC PRN Administration Moderate Correctional Scale Isosorbide Mononitrate 30 mg 10/09/19 09:00 10/12/19 08:07 Imdur Er PO 30 mg DAILY DUONG Administration Lisinopril 50 mg 10/08/19 09:00 10/12/19 08:06 Zestril PO 50 mg DAILY DUONG Administration Metoprolol Succinate 50 mg 10/07/19 21:00 10/12/19 08:06 Toprol Xl PO 50 mg BID DUONG Administration Pantoprazole Sodium 40 mg 10/09/19 09:00 10/12/19 08:07 Protonix PO 40 mg DAILY DUONG Administration Spironolactone 25 mg 10/08/19 09:00 10/12/19 08:06 Aldactone PO 25 mg DAILY DUONG Administration Warfarin Sodium 7.5 mg 10/11/19 17:00 10/11/19 16:23 Coumadin PO 7.5 mg 1700 DUONG Administration - Exam Eye: PERRL, anicteric sclera Heart: RRR, no murmur, no gallops, no rubs, normal peripheral pulses Respiratory: CTAB (with coarse breath sounds bilaterally) Gastrointestinal: soft, non-tender, non-distended, normal bowel sounds, no palpable masses Extremities: no cyanosis, no edema Hosp A/P (1) Ankle pain, left Code(s): M25.572 - PAIN IN LEFT ANKLE AND JOINTS OF LEFT FOOT Status: Acute (2) Chronic anticoagulation Code(s): Z79.01 - 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 Status: Acute (3) Crescendo angina Status: Acute (4) Anemia Code(s): D64.9 - ANEMIA, UNSPECIFIED Status: Acute (5) Atrial fibrillation Code(s): I48.91 - UNSPECIFIED ATRIAL FIBRILLATION Status: Acute (6) Hypertension Code(s): I10 - ESSENTIAL (PRIMARY) HYPERTENSION Status: Chronic (7) Diabetes mellitus type 2 in obese Code(s): E11.69 - TYPE 2 DIABETES MELLITUS WITH OTHER SPECIFIED COMPLICATION; E66.9 - OBESITY, UNSPECIFIED Status: Chronic (8) Physical deconditioning Code(s): R53.81 - OTHER MALAISE Status: Chronic - Plan * Hypercapnic respiratory failure- likely from NAZIA- will continue CAPA Prn, and will consult PCCM * Ankle pain- Probable gout- Xray was negative for fracture- will start Colchine , and Indocin as needed ( renal function is normal) * Lower extremity weakness- likely from Lumbar spinal stenosis- will contonie with PT and re-assess- she may need NS consultation * Anemia of chronic disease- stable * HTN-continue her home medications * DM- blood glucose is stable * AFIB- heart rate is stable- her INR is 1.7 today- will revert back to her home dose of 5mg a day * Awaiting [facility] placement
[2019-10-12] MEDS: Warfarin Sodium 5 MG TAB PO SCH (17:37)
[2019-10-12] MEDS: Acetaminophen 325 MG TAB PO PRN (20:50)
[2019-10-12] MEDS: Melatonin 3 MG TAB PO PRN (21:47)
--- NOTE | 2019-10-12 22:36 | CON ---
DATE OF CONSULTATION: 10/12/2019 HISTORY OF PRESENT ILLNESS: She is complaining of sharp pains in her chest. She also complained of feeling weak, dizzy and orthopneic. She apparently has fallen at home and could get up, which led to her being brought in by ambulance. PAST MEDICAL HISTORY: Remarkable for: 1. COPD. 2. Hypertension. 3. Atrial fibrillation. 4. Diabetes. 5. Lipid disorder. 6. History of coronary artery disease. 7. History of degenerative arthritis. 8. History of nephrolithiasis with a bladder stone. 9. History of knee replacement. 10. History of coronary stenting. ALLERGIES: SHE HAS NO DRUG ALLERGIES. CODEINE MAKES HER NAUSEATED. SHE QUIT SMOKING 10 YEARS AGO, OTHERWISE SMOKES SINCE SHE WAS A TEENAGER. SHE IS NOT A DAILY DRINKER. REVIEW OF SYSTEMS: Ten points otherwise negative. FAMILY HISTORY: Positive for cancer, diabetes, heart failure. Negative for lung disease in early age. MEDICATIONS: Had been reviewed. PHYSICAL EXAMINATION: GENERAL: She is in no distress. She awakened reasonably quickly with shakes. VITAL SIGNS: She is afebrile, heart rate 73, blood pressure 94/49. Pupils are equal. Sclerae are anicteric. NECK: Supple. LUNGS: Clear and distant. HEART: Regular rhythm. S1, S2 are normal. ABDOMEN: Soft and nontender. EXTREMITIES: Without clubbing, cyanosis, or edema. NEUROLOGIC: Grossly nonfocal. LABORATORY DATA: Sodium 142, potassium 4.9, chloride 94, bicarb 37, BUN 38, creatinine 0.9. Bicarb is 37 on admission. PH 7.31, CO2 96, pO2 85. Today pH 7.35, CO2 84, pO2 80. Reviewing all records, it did not appear that we have seen her here in the past for pulmonary problems. It is hard to know how much of this is secondary to untreated obesity hypoventilation syndrome and how much might be in part related to chronic obstructive pulmonary disease. She needs spirometry at some point. She will also need to continue with noninvasive ventilatory support, i.e., BiPAP here and after discharge. It may be difficult to get her BiPAP without a sleep study. It does not appear that she has resources to go by one. We will have to work on this. I would shoot for an O2 saturation of 88 to 92, and continue with BiPAP whenever she sleeps. This is a 50 min visit with greater than 50% of the time spent on the unit with coordination of care. Job ID: [id number] MTDD
[2019-10-13] MEDS: HumaLOG 300 UNITS/3 ML VIAL SC PRN ×3 (06:32→21:17)
[2019-10-13] MEDS: Acetaminophen 325 MG TAB PO PRN (06:45)
--- NOTE | 2019-10-13 07:42 | PRG ---
DATE OF SERVICE: 10/13/2019 SUBJECTIVE: Kaylah Gilman did well overnight. She hates the BiPAP. I have explained to her she will need this at home. OBJECTIVE: VITAL SIGNS: Blood pressure 132/42, heart rate 74, and respiratory rate is 25. LUNGS: Clear. HEART: Regular rhythm. ABDOMEN: Soft, nontender. EXTREMITIES: Without edema. LABORATORY DATA: There is no new lab other than blood glucoses. IMPRESSION: Acute on chronic hypoxemic and hypercarbic respiratory failure secondary to combination of chronic obstructive pulmonary disease and obesity hypoventilation syndrome. I do not believe conventional CPAP or BiPAP will benefit her long-term. Try to see if we can get her set up with [facility] noninvasive ventilator. Job ID: [id number] MTDD
[2019-10-13] MEDS ORDERED: Colchicine 0.6 MG TAB PO SCH (09:30)
[2019-10-13] MEDS: Lisinopril 20 MG TAB PO SCH (09:33)
[2019-10-13] MEDS: Aspirin 81 mg Enteric Coated Tablet PO SCH (09:36)
[2019-10-13] MEDS: Spironolactone 25 MG TAB PO SCH (09:36)
[2019-10-13] MEDS: Atorvastatin Calcium 40 MG TAB PO SCH (09:36)
[2019-10-13] MEDS: Clopidogrel Bisulfate 75 MG TAB PO SCH (09:36)
[2019-10-13] MEDS: Furosemide 20 MG TAB PO SCH (09:36)
--- NOTE | 2019-10-13 09:39 | PDOC.HOSPP ---
- Subjective Encounter Date: 10/13/19 Encounter Time: 09:37 Subjective: Ms. Gilman was seen today in follow-up of respiratory failure and gout. She continues to have pain in her ankles. She says she has had a flare- up of gout in the past. She says she feels more awake today - Objective Vital Signs & Weight: Vital Signs (12 hours) Temp Pulse Resp BP Pulse Ox 10/13/19 09:33 127/41 L 10/13/19 08:00 99 10/13/19 07:37 98.4 F 10/13/19 04:00 97.6 F 10/13/19 01:59 78 13 96 10/12/19 23:47 97.6 F 10/12/19 22:16 75 15 100 Weight Weight 218 lb 7.649 oz Most Recent Monitor Data Heart Rate from ECG 74 NIBP 132/42 NIBP BP-Mean 72 Respiration from ECG 25 SpO2 99 I&O: 10/12/19 10/13/19 10/14/19 06:59 06:59 06:59 Intake Total 600 650 Output Total 550 900 Balance 50 -250 Result Diagrams: 10/12/19 03:17 10/12/19 03:17 Additional Labs: Accuchecks 10/13/19 10/12/19 10/12/19 05:43 20:44 16:52 POC Glucose 175 H 256 H 220 H 10/12/19 10:48 POC Glucose 195 H Hospitalist ROS - Medication Medications: Active Medications Generic Name Dose Route Start Last Admin Trade Name Freq PRN Reason Stop Dose Admin Acetaminophen 650 mg 10/07/19 09:44 10/13/19 06:45 Tylenol PO 650 mg Q4H PRN Administration Headache/Fever/Mild Pain (1-3) Albuterol Sulfate 2 puff 10/07/19 09:52 10/09/19 08:57 Proventil Hfa INH 2 puff Q4H PRN Administration SOB Alprazolam 0.5 mg 10/07/19 09:44 10/11/19 22:39 Xanax PO 0.5 mg BID PRN Administration Anxiety Aspirin 81 mg 10/08/19 09:00 10/13/19 09:36 Ecotrin PO 81 mg DAILY DUONG Administration Atorvastatin Calcium 40 mg 10/08/19 09:00 10/13/19 09:36 Lipitor PO 40 mg DAILY DUONG Administration Clopidogrel Bisulfate 75 mg 10/08/19 09:00 10/13/19 09:36 Plavix PO 75 mg DAILY DUONG Administration Docusate Sodium 100 mg 10/08/19 09:53 10/08/19 10:14 Colace PO 100 mg BIDPRN PRN Administration Constipation Furosemide 20 mg 10/09/19 09:00 10/13/19 09:36 Lasix PO 20 mg DAILY DUONG Administration Insulin Human Lispro 0 units 10/07/19 09:44 10/13/19 06:32 Humalog SC 2 unit .MODERATE SLIDING SC PRN Administration Moderate Correctional Scale Insulin Human Lispro 0 units 10/07/19 09:44 10/12/19 20:46 Humalog SC 3 unit .BEDTIME SLIDING SC PRN Administration Bedtime Correctional Scale Isosorbide Mononitrate 30 mg 10/09/19 09:00 10/13/19 09:36 Imdur Er PO 30 mg DAILY DUONG Administration Lisinopril 50 mg 10/08/19 09:00 10/13/19 09:33 Zestril PO 40 mg DAILY DUONG Administration Melatonin 3 mg 10/12/19 21:23 10/12/19 21:47 Melatonin PO 3 mg HS PRN Administration Insomnia Metoprolol Succinate 50 mg 10/07/19 21:00 10/13/19 09:36 Toprol Xl PO 50 mg BID DUONG Administration Pantoprazole Sodium 40 mg 10/09/19 09:00 10/13/19 09:36 Protonix PO 40 mg DAILY DUONG Administration Spironolactone 25 mg 10/08/19 09:00 10/13/19 09:36 Aldactone PO 25 mg DAILY DUONG Administration Warfarin Sodium 5 mg 10/12/19 17:00 10/12/19 17:37 Coumadin PO 5 mg 1700 DUONG Administration - Exam Eye: PERRL, anicteric sclera Heart: RRR, no murmur, no gallops, no rubs, normal peripheral pulses Respiratory: CTAB (with occsional wheeze) Gastrointestinal: soft, non-tender, non-distended, normal bowel sounds, no palpable masses Extremities: no cyanosis, no edema Hosp A/P (1) Ankle pain, left Code(s): M25.572 - PAIN IN LEFT ANKLE AND JOINTS OF LEFT FOOT Status: Acute (2) Chronic anticoagulation Code(s): 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 Status: Acute (3) Crescendo angina Status: Acute (4) Anemia Code(s): D64.9 - ANEMIA, UNSPECIFIED Status: Acute (5) Atrial fibrillation Code(s): I48.91 - UNSPECIFIED ATRIAL FIBRILLATION Status: Acute (6) Hypertension Code(s): I10 - ESSENTIAL (PRIMARY) HYPERTENSION Status: Chronic (7) Diabetes mellitus type 2 in obese Code(s): E11.69 - TYPE 2 DIABETES MELLITUS WITH OTHER SPECIFIED COMPLICATION; E66.9 - OBESITY, UNSPECIFIED Status: Chronic (8) Physical deconditioning Code(s): R53.81 - OTHER MALAISE Status: Chronic - Plan * Hypercapnic respiratory failure- likely from NAZIA- continue CPAP /BiPAP at night * Gout attack- will start Colchicine. Can not use indocin due to warfarin * Lower extremity weakness- likely from Lumbar spinal stenosis- will contonie with PT and re-assess- she may need NS consultation * Anemia of chronic disease- stable * HTN-continue her home medications * DM- blood glucose is stable * AFIB- heart rate is stable- * Chronic anticoagulation- continue coumadin * Awaiting long term placement
[2019-10-13] MEDS: Colchicine 0.6 MG TAB PO SCH ×2 (09:56→20:09)
[2019-10-13 09:58] LABS: INR-International Normal Ratio 2.3; Prothrombin Time 25.3 sec (12.0-14.7)
[2019-10-13] MEDS: Warfarin Sodium 5 MG TAB PO SCH (17:28)
[2019-10-13 17:32] LABS: Hemoglobin 8.4 g/dL (12.0-16.0); Platelet Count 246 thou/uL (130-400)
[2019-10-13] MEDS: Melatonin 3 MG TAB PO PRN (20:10)
[2019-10-14 03:37] LABS: Hemoglobin 8.1 g/dL (12.0-16.0); Platelet Count 231 thou/uL (130-400)
[2019-10-14 03:43] LABS: INR-International Normal Ratio 2.6; Prothrombin Time 27.7 sec (12.0-14.7)
[2019-10-14] MEDS: Lisinopril 20 MG TAB PO SCH (09:34)
[2019-10-14] MEDS: Atorvastatin Calcium 40 MG TAB PO SCH (09:34)
[2019-10-14] MEDS: Colchicine 0.6 MG TAB PO SCH ×2 (09:34→20:38)
[2019-10-14] MEDS: Furosemide 20 MG TAB PO SCH (09:35)
[2019-10-14] MEDS: Clopidogrel Bisulfate 75 MG TAB PO SCH (09:35)
[2019-10-14] MEDS: Spironolactone 25 MG TAB PO SCH (09:35)
[2019-10-14] MEDS: Aspirin 81 mg Enteric Coated Tablet PO SCH (09:35)
--- NOTE | 2019-10-14 11:54 | PRG ---
DATE OF SERVICE: 10/14/2019 SUBJECTIVE: The patient is breathing okay. She is disappointed that she needed a blood transfusion. OBJECTIVE: VITAL SIGNS: Temperature 98.5, pulse 81, blood pressure 145/75. HEENT: Unremarkable. NECK: No adenopathy or JVD. LUNGS: Clear. CARDIAC: S1 and S2 regular. ABDOMEN: Soft. EXTREMITIES: No edema. LABORATORY DATA: Hemoglobin 8.1, hematocrit 24.7, and platelet count 231. INR is 2.6. ASSESSMENT: Hypercapnic respiratory failure, likely secondary to obesity hypoventilation syndrome and chronic obstructive pulmonary disease. PLAN: 1. Will eventually need some type of trilogy ventilator at home. It would be nice to get an outpatient sleep study at some point. 2. Further care per hospitalist group. Job ID: [id number]
[2019-10-14] MEDS: HumaLOG 300 UNITS/3 ML VIAL SC PRN (12:32)
--- NOTE | 2019-10-14 14:33 | PDOC.HOSPP ---
- Subjective Encounter Date: 10/14/19 Encounter Time: 11:15 Subjective: pt states that she feels confused but is oriented x3. she is able to answer all questions. she did have her cpap on last night. - Objective Vital Signs & Weight: Vital Signs (12 hours) Temp Pulse Pulse Resp BP BP BP 10/14/19 13:16 71 133/93 H 147/65 H 10/14/19 11:20 98.5 F 10/14/19 09:34 127/41 L 10/14/19 07:32 98.2 F 10/14/19 03:55 98.0 F 10/14/19 02:51 74 22 H Pulse Ox Pulse Ox 10/14/19 13:16 100 10/14/19 11:20 10/14/19 09:34 10/14/19 07:32 10/14/19 03:55 10/14/19 02:51 98 Weight Weight 211 lb 6.773 oz Most Recent Monitor Data Heart Rate from ECG 74 NIBP 141/54 NIBP BP-Mean 83 Respiration from ECG 17 SpO2 100 I&O: 10/13/19 10/14/19 10/15/19 06:59 06:59 06:59 Intake Total 650 990 Output Total 900 1100 Balance -250 -110 Result Diagrams: 10/14/19 03:20 10/12/19 03:17 Additional Labs: Accuchecks 10/14/19 10/14/19 10/13/19 10:53 05:51 20:44 POC Glucose 227 H 137 H 274 H 10/13/19 16:45 POC Glucose 163 H Hospitalist ROS - Review of Systems Respiratory: denies: cough, dry, shortness of breath, hemoptysis, SOB with excertion, pleuritic pain, sputum, wheezing, other Cardiovascular: denies: chest pain, palpitations, orthopnea, paroxysmal noc. dyspnea, edema, light headedness, other Gastrointestinal: reports: abdominal pain - Medication Medications: Active Medications Generic Name Dose Route Start Last Admin Trade Name Freq PRN Reason Stop Dose Admin Acetaminophen 650 mg 10/07/19 09:44 10/13/19 06:45 Tylenol PO 650 mg Q4H PRN Administration Headache/Fever/Mild Pain (1-3) Albuterol Sulfate 2 puff 10/07/19 09:52 10/09/19 08:57 Proventil Hfa INH 2 puff Q4H PRN Administration SOB Alprazolam 0.5 mg 10/07/19 09:44 10/11/19 22:39 Xanax PO 0.5 mg BID PRN Administration Anxiety Aspirin 81 mg 10/08/19 09:00 10/14/19 09:35 Ecotrin PO 81 mg DAILY DUONG Administration Atorvastatin Calcium 40 mg 10/08/19 09:00 10/14/19 09:34 Lipitor PO 40 mg DAILY DUONG Administration Clopidogrel Bisulfate 75 mg 10/08/19 09:00 10/14/19 09:35 Plavix PO 75 mg DAILY DUONG Administration Colchicine 0.6 mg 10/13/19 21:00 10/14/19 09:34 Colchicine PO 0.6 mg BID DUONG Administration Docusate Sodium 100 mg 10/08/19 09:53 10/08/19 10:14 Colace PO 100 mg BIDPRN PRN Administration Constipation Furosemide 20 mg 10/09/19 09:00 10/14/19 09:35 Lasix PO 20 mg DAILY DUONG Administration Insulin Human Lispro 0 units 10/07/19 09:44 10/14/19 12:32 Humalog SC 4 unit .MODERATE SLIDING SC PRN Administration Moderate Correctional Scale Insulin Human Lispro 0 units 10/07/19 09:44 10/13/19 21:17 Humalog SC 3 unit .BEDTIME SLIDING SC PRN Administration Bedtime Correctional Scale Isosorbide Mononitrate 30 mg 10/09/19 09:00 10/14/19 09:34 Imdur Er PO 30 mg DAILY DUONG Administration Lisinopril 50 mg 10/08/19 09:00 10/14/19 09:34 Zestril PO 40 mg DAILY DUONG Administration Melatonin 3 mg 10/12/19 21:23 10/13/19 20:10 Melatonin PO 3 mg HS PRN Administration Insomnia Metoprolol Succinate 50 mg 10/07/19 21:00 10/14/19 09:34 Toprol Xl PO 50 mg BID DUONG Administration Sodium Chloride 10 ml 10/09/19 09:44 10/13/19 20:09 Flush - Normal Saline IVF 10 ml PRN PRN Administration Saline Flush Spironolactone 25 mg 10/08/19 09:00 10/14/19 09:35 Aldactone PO 25 mg DAILY DUONG Administration Warfarin Sodium 5 mg 10/12/19 17:00 10/13/19 17:28 Coumadin PO Not Given 1700 [facility] - Exam Heart: negative: RRR, no murmur, no gallops, no rubs, normal peripheral pulses, irregular, diminshed peripheral pulses, murmur present, II/IV, III/IV Respiratory: negative: CTAB, no wheezes, no rales, no ronchi, normal chest expansion, no tachypnea, normal percussion, rales, rhonchi, tachypneic, wheezes Gastrointestinal: soft Gastrointestinal - other findings: mild epigastric pain on palpation Extremities: negative: no cyanosis, no clubbing, no edema, 1+ LE edema, 2+ LE edema, clubbing Hosp A/P (1) Acute hypercapnic respiratory failure Code(s): J96.02 - ACUTE RESPIRATORY FAILURE WITH HYPERCAPNIA Status: Acute (2) CAD (coronary artery disease) Code(s): I25.10 - ATHSCL HEART DISEASE OF [place] CORONARY ARTERY W/O ANG PCTRS Status: Acute (3) Anemia Code(s): D64.9 - ANEMIA, UNSPECIFIED Status: Acute (4) Chronic anticoagulation Code(s): Z79.01 - TAPE STRINGER (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 will get records from her previous hospital. will put her on protonix and get gi to see her. will hold AC for now. she received 2untis of blood. her guiac is negative.
[2019-10-14] MEDS ORDERED: Phytonadione 10 MG/ML AMP PO SCH (18:00)
--- NOTE | 2019-10-14 19:04 | CON ---
DATE OF CONSULTATION: 10/14/2019 REASON FOR CONSULTATION: Anemia, questionable history of gastric ulcers. CONSULTING PROVIDER: Dr. Laurence Wyman. HISTORY OF PRESENT ILLNESS: The patient is a 79-year-old female with past medical history of atrial fibrillation, on anticoagulation; COPD; hypertension; diabetes; hyperlipidemia; coronary artery disease, status post stent placement; osteoarthritis; and nephrolithiasis along with chronic diastolic dysfunction; who initially presented to the hospital with complaints of chest pain and shortness of breath. During the course of this hospitalization, the patient has been evaluated by both Cardiology and Pulmonary services related to the above symptoms, and at this time, the patient's chest pain feels to be related more due to her anemia and creating a situational anginal chest pain equivalent whenever she gets anemic. During the course of this hospitalization, she has had a slowly downtrending hemoglobin and hematocrit that responded well to infusion of PRBCs, but has been slowly downtrending ever since. Upon conferring with the patient today, she states that she was evaluated approximately 1 year ago for this exact problem by a supervisor spring up in [place], [place]. She subsequently underwent both EGD and colonoscopy with findings of stomach ulcers on the upper endoscopy and normal findings on the colonoscopy. It is unclear if the patient was diagnosed with H pylori at that time, but was placed on antibiotic therapy after the diagnosis of stomach ulcers, so this is a presumptive diagnosis. Currently, the patient states that she is doing better with complete resolution of her chest pain and improvement in her shortness of breath, but not resolution. She is currently being placed on BiPAP when asleep, but has been unable to adequately tolerate this modality as of yet. Currently, she denies any nausea, vomiting, fevers, chills, hematemesis, melena, hematochezia, dysphagia, odynophagia, diarrhea, constipation, or weight loss prior to admission. REVIEW OF SYSTEMS: A 10-category review of systems was obtained with all responses negative except for the pertinent positives as listed in HPI. PAST MEDICAL HISTORY: As per HPI. PAST SURGICAL HISTORY: 1. Knee replacement. 2. Hysterectomy. 3. Bladder suspension. 4. PCI stent placement. 5. EGD and colonoscopy. FAMILY HISTORY: Denies any GI malignancies. SOCIAL HISTORY: Denies any tobacco, alcohol, or illicit drug use. OUTPATIENT MEDICATIONS: Reviewed. ALLERGIES: CODEINE. PHYSICAL EXAMINATION: VITAL SIGNS: Temperature 98.4, pulse 82, blood pressure 177/73, respiratory rate 26, saturating 100% on room air. GENERAL: The patient was lying in bed, in no acute distress. Alert and oriented x4. No conversational dyspnea. HEENT: Normocephalic, atraumatic. NECK: Supple. No JVD or scleral icterus noted. CARDIOVASCULAR: Regular rate and rhythm with no discernible murmurs, gallops, or rubs. RESPIRATORY: Clear to auscultation bilaterally with no discernible wheezes or rales. ABDOMEN: Normoactive bowel sounds. Soft, , mild tenderness to palpation in the midepigastric region. EXTREMITIES: No cyanosis, clubbing, or edema. LABORATORY DATA: Current studies are few, but labs obtained today showed a hemoglobin of 8.1, hematocrit 24.7. INR 2.6. Previous studies show on October 11, a sodium of 142, potassium 4.9, chloride 94, CO2 is 37, BUN 38, creatinine 0.99, glucose 159. Iron indices obtained during this admission showed an iron of 59, ferritin 75, and TIBC of 284. IMAGING DATA: No current GI imaging is available for review. ASSESSMENT AND PLAN: The patient is a 79-year-old female with past medical history of atrial fibrillation, on chronic anticoagulation; chronic obstructive pulmonary disease; hypertension; diabetes; hyperlipidemia; coronary artery disease, status post PCI stent placement; osteoarthritis; nephrolithiasis; and questionable gastric ulcers; presenting with continued anemia, that may be generating anginal equivalent chest pain. 1. Anemia/gastric ulcers. The patient states that she was initially evaluated approximately 1 year ago with continued anemia with downtrending H and H at that time. She subsequently underwent both an EGD and colonoscopy in [place], [place] with the findings of stomach ulcers and normal findings on the colonoscopy per the patient. Unfortunately, those records are unavailable for review at this time. However, the patient also adds that she was placed on 2 different antibiotics in the post-procedure period raising the concern for possible H pylori infection contributing to these ulcerations. With her downtrending H and H during the course of this admission here, it does raise concern whether or not she was adequately treated for the H pylori and she could not recall any confirmation of eradication of the bacteria. Upon review of her chart, in the outpatient setting, she had a colonoscopy performed on October 20, 2016, which showed only the presence of internal hemorrhoids and was otherwise normal. At this time, it seems that the origin of her anemia may be more linked to an upper GI source, but I cannot rule out a colonic origin at this time, given the fact that the patient is on chronic anticoagulation. Evaluation of both the upper and lower GI tract is indicated, but I would start with the upper GI tract first for possible etiology. Recommendations;. a. Would continue to trend her H and H and transfuse as necessary to maintain an H and H of 7/21. b. Continue to monitor clinically for signs of active GI bleeding. c. Would discontinue anticoagulation at this time except for aspirin in light of possible GI bleeding. d. Would administer oral vitamin K 5 mg x1 reverse her INR in case intervention is needed during upper endoscopy. e. Please make the patient n.p.o. at midnight in anticipation of an upper endoscopy tomorrow for evaluation of possible anemia. f. Continue the patient on pantoprazole 40 mg daily in light of possible upper GI bleed. We will continue to follow. Please call with any questions. Job ID: [id number]
[2019-10-14] MEDS: Pantoprazole 40 MG VIAL IVP SCH (20:38)
[2019-10-14] MEDS: Melatonin 3 MG TAB PO PRN (20:38)
[2019-10-15 04:01] LABS: INR-International Normal Ratio 1.9; Prothrombin Time 21.3 sec (12.0-14.7)
[2019-10-15 04:32] LABS: Band 8 % (5-11); Eosinophils 8 % (0-10); Hemoglobin 8.4 g/dL (12.0-16.0); Lymphocytes 12 % (21-51); MDiff Complete? YES; Mean Corpuscular HGB CONC 31.8 g/dL (32.0-36.0); Mean Corpuscular Hemoglobin 30.6 pg (27.0-31.0); Mean Corpuscular Volume 96.4 fL (78.0-98.0); Monocytes 15 % (0-10); Neutrophil 57 % (42-75); Platelet Count 213 thou/uL (130-400); RBC Distribution Width 13.3 % (11.5-14.5); Red Blood Cell (RBC) Count 2.75 mill/uL (4.20-5.40); White Blood Cell (WBC) Count 4.4 thou/uL (4.8-10.8)
[2019-10-15] MEDS ORDERED: Ondansetron HCl/PF 4 MG/2 ML Vial IVP PRN ×2 (09:09→10:16)
[2019-10-15] MEDS ORDERED: Promethazine HCl 25 MG/ML VIAL IM PRN ×2 (09:09→10:16)
[2019-10-15] MEDS ORDERED: Promethazine HCl 25 MG/ML VIAL SLOW IVP PRN ×2 (09:09→10:16)
--- NOTE | 2019-10-15 10:35 | OP ---
DATE OF PROCEDURE: 10/15/2019 PROCEDURE PERFORMED: EGD with biopsy. INDICATION FOR PROCEDURE: Anemia during this hospitalization, history of gastric ulcers with possible H pylori. DESCRIPTION OF PROCEDURE: After the risks and benefits of the procedure were explained to the patient including risks of bleeding, infection, perforation, reactions to anesthesia, aspiration, and/or pain, informed consent was obtained. The patient was then taken to the endoscopy suite where she was maneuvered into the left lateral decubitus position, followed by introduction of deep sedation via propofol and anesthesia support. Once adequate sedation was achieved, the standard gastroscope was introduced into the mouth with intubation of the esophagus, stomach, and the proximal small intestines with the findings listed below. The patient tolerated the procedure well with no immediate perioperative complications. Upon conclusion of the procedure, all equipment was removed from the patient and she was transferred to PACU in satisfactory condition. FINDINGS: Esophagus: Normal-appearing mucosa was seen in the proximal, mid, and distal esophagus. There was no evidence of erosions, ulcerations, mass lesions, or active/recent bleeding. Stomach: Normal-appearing mucosa was seen in the gastric cardia, fundus, body, greater curvature, and incisura. However, two small clean based ulcerations measuring 1 to 2 mm in size were seen in the gastric antrum in the prepyloric region. Again, there was no high-risk stigmata associated with these lesions, so multiple biopsies were taken for further evaluation. A third area of slightly nodular mucosa was seen adjacent to this with mild erythema but otherwise did not have any additional abnormalities. Otherwise within the stomach, there was no evidence of mass lesions or active/recent bleeding. Duodenum: Three small erosions measuring 1 to 3 mm in length were seen within the duodenal bulb, but did not exhibit any characteristics of overt ulceration. Otherwise normal-appearing mucosa was seen within the duodenal sweep and second portion of the duodenum. There was no evidence of ulcerations, mass lesions or active/recent bleeding. IMPRESSION: 1. Two small 1 to 2 mm clean-based ulceration seen in the gastric antrum, status post biopsies. 2. Mild erosive duodenitis, likely secondary to the process affecting the gastric ulcers. 3. No etiology for the patient's anemia was seen during this examination. RECOMMENDATIONS: 1. Would continue to trend her H and H and transfuse as necessary to maintain an H and H of 7/21. 2. Continue to monitor clinically for signs of active GI bleeding. 3. Would follow up on the biopsy results and if positive for H pylori, would treat with quadruple therapy. 4. Given the patient's uptrending H and H today, prior to intervention, I would speak with the patient about proceeding with colonoscopy in light of these gastric ulcers, but may opt for just monitoring the patient rather than proceeding with colonoscopy in this complicated patient. 5. Continue PPI 40 mg IV b.i.d. 6. We will continue to hold her warfarin and Plavix for the time being. We will continue to follow. Please call with any questions. Job ID: [id number]
[2019-10-15] MEDS ORDERED: Lidocaine 1% PF 5 ML VIAL ONE (10:41)
[2019-10-15] MEDS ORDERED: PROPOFOL 200 MG/20 ML VIAL ONE (10:41)
[2019-10-15] MEDS: Lisinopril 20 MG TAB PO SCH (10:58)
[2019-10-15] MEDS: Clopidogrel Bisulfate 75 MG TAB PO SCH (10:58)
[2019-10-15] MEDS: Spironolactone 25 MG TAB PO SCH (10:58)
[2019-10-15] MEDS: Furosemide 20 MG TAB PO SCH (10:58)
[2019-10-15] MEDS: Colchicine 0.6 MG TAB PO SCH ×2 (10:59→22:11)
[2019-10-15] MEDS: Aspirin 81 mg Enteric Coated Tablet PO SCH (10:59)
[2019-10-15] MEDS: Pantoprazole 40 MG VIAL IVP SCH ×2 (10:59→22:20)
[2019-10-15] MEDS: Atorvastatin Calcium 40 MG TAB PO SCH (10:59)
--- NOTE | 2019-10-15 12:36 | PDOC.HOSPP ---
- Subjective Encounter Date: 10/15/19 Encounter Time: 12:36 Subjective: pt up in bed no complains - Objective Vital Signs & Weight: Vital Signs (12 hours) Temp BP Pulse Ox 10/15/19 11:34 97.3 F L 10/15/19 10:58 127/41 L 10/15/19 07:19 97.6 F 10/15/19 03:37 98.0 F 10/15/19 02:00 98 Weight Weight 206 lb 12.697 oz Most Recent Monitor Data Heart Rate from ECG 72 NIBP 168/86 NIBP BP-Mean 113 Respiration from ECG 23 SpO2 100 I&O: 10/14/19 10/15/19 10/16/19 06:59 06:59 06:59 Intake Total 990 940 Output Total 1100 1150 Balance -110 -210 Result Diagrams: 10/15/19 03:41 10/12/19 03:17 Additional Labs: Accuchecks 10/15/19 10/15/19 10/14/19 11:53 06:02 20:37 POC Glucose 155 H 146 H 199 H 10/14/19 16:58 POC Glucose 126 H Hospitalist ROS - Review of Systems Respiratory: denies: cough, dry, shortness of breath, hemoptysis, SOB with excertion, pleuritic pain, sputum, wheezing, other Cardiovascular: denies: chest pain, palpitations, orthopnea, paroxysmal noc. dyspnea, edema, light headedness, other Gastrointestinal: denies: nausea, vomiting, abdominal pain, diarrhea, constipation, melena, hematochezia, other - Medication Medications: Active Medications Generic Name Dose Route Start Last Admin Trade Name Sourav PRN Reason Stop Dose Admin Acetaminophen 650 mg 10/07/19 09:44 10/13/19 06:45 Tylenol PO 650 mg Q4H PRN Administration Headache/Fever/Mild Pain (1-3) Albuterol Sulfate 2 puff 10/07/19 09:52 10/09/19 08:57 Proventil Hfa INH 2 puff Q4H PRN Administration SOB Alprazolam 0.5 mg 10/07/19 09:44 10/11/19 22:39 Xanax PO 0.5 mg BID PRN Administration Anxiety Aspirin 81 mg 10/08/19 09:00 10/15/19 10:59 Ecotrin PO 81 mg DAILY DUONG Administration Atorvastatin Calcium 40 mg 10/08/19 09:00 10/15/19 10:59 Lipitor PO 40 mg DAILY DUONG Administration Clopidogrel Bisulfate 75 mg 10/08/19 09:00 10/15/19 10:58 Plavix PO 75 mg DAILY DUONG Administration Colchicine 0.6 mg 10/13/19 21:00 10/15/19 10:59 Colchicine PO 0.6 mg BID DUONG Administration Docusate Sodium 100 mg 10/08/19 09:53 10/08/19 10:14 Colace PO 100 mg BIDPRN PRN Administration Constipation Furosemide 20 mg 10/09/19 09:00 10/15/19 10:58 Lasix PO 20 mg DAILY DUONG Administration Insulin Human Lispro 0 units 10/07/19 09:44 10/14/19 12:32 Humalog SC 4 unit .MODERATE SLIDING SC PRN Administration Moderate Correctional Scale Insulin Human Lispro 0 units 10/07/19 09:44 10/13/19 21:17 Humalog SC 3 unit .BEDTIME SLIDING SC PRN Administration Bedtime Correctional Scale Isosorbide Mononitrate 30 mg 10/09/19 09:00 10/15/19 10:59 Imdur Er PO 30 mg DAILY DUONG Administration Lisinopril 50 mg 10/08/19 09:00 10/15/19 10:58 Zestril PO 40 mg DAILY DUONG Administration Melatonin 3 mg 10/12/19 21:23 10/14/19 20:38 Melatonin PO 3 mg HS PRN Administration Insomnia Metoprolol Succinate 50 mg 10/07/19 21:00 10/15/19 06:17 Toprol Xl PO 50 mg BID DUONG Administration Pantoprazole Sodium 40 mg 10/14/19 21:00 10/15/19 10:59 Protonix IVP 40 mg BID DUONG Administration Sodium Chloride 10 ml 10/09/19 09:44 10/14/19 20:38 Flush - Normal Saline IVF 10 ml PRN PRN Administration Saline Flush Spironolactone 25 mg 10/08/19 09:00 10/15/19 10:58 Aldactone PO 25 mg DAILY DUONG Administration Warfarin Sodium 5 mg 10/12/19 17:00 10/13/19 17:28 Coumadin PO Not Given 1700 DUONG - Exam Neck: negative: supple, symmetric, no JVD, no thyromegaly, no lymphadenopathy, no carotid bruit, JVD Heart: negative: RRR, no murmur, no gallops, no rubs, normal peripheral pulses, irregular, diminshed peripheral pulses, murmur present, II/IV, III/IV Respiratory: negative: CTAB, no wheezes, no rales, no ronchi, normal chest expansion, no tachypnea, normal percussion, rales, rhonchi, tachypneic, wheezes Gastrointestinal: negative: soft, non-tender, non-distended, normal bowel sounds , no palpable masses, no hepatomegaly, no splenomegaly, no bruit, no guarding, no rigidity, tender to palpation, distended, diminished bowl sounds, voluntary guarding Hosp A/P (1) Acute hypercapnic respiratory failure Code(s): J96.02 - ACUTE RESPIRATORY FAILURE WITH HYPERCAPNIA Status: Acute (2) CAD (coronary artery disease) Code(s): I25.10 - ATHSCL HEART DISEASE OF [place] CORONARY ARTERY W/O ANG PCTRS Status: Acute (3) Anemia Code(s): D64.9 - ANEMIA, UNSPECIFIED Status: Acute (4) Chronic anticoagulation Code(s): Z79.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 will get records from her previous hospital. will put her on protonix and get gi to see her. will hold AC for now. she received 2untis of blood. her guiac is negative. 10/14 s/p egd no acute bleeding noted. will hold Coumadin but given pt's recent sent in 11/10 will continue asa/plavix. will monitor hh and continue protonix.
--- NOTE | 2019-10-15 12:48 | PRG ---
DATE OF SERVICE: 10/15/2019 SUBJECTIVE: She did not require use of the BiPAP last night. She feels better, has no acute complaints. OBJECTIVE: VITAL SIGNS: Temperature 97.3, pulse 68, blood pressure 173/61, and sat 100%. HEENT: Unremarkable. NECK: No adenopathy or JVD. CHEST: Clear without wheezing. CARDIAC: S1, S2. Regular. LABORATORY DATA: White blood cell count 4.4, hematocrit 26.5, and platelet count 213. ASSESSMENT: 1. Chronic obstructive pulmonary disease with exacerbation. 2. Anemia. PLAN: 1. Can be transferred out to the floor. 2. Continue nebulization therapy. Job ID: [id number]
[2019-10-16 05:30] LABS: #Eosinphils 0.2 thou/uL (0.0-0.7); #Lymphocytes 0.7 thou/uL (1.20-3.40); #Monocytes 0.7 thou/uL (0.11-0.59); #Neutrophils 3.5 thou/uL (1.40-6.50); %Basophils 0.9 % (0.0-1.0); %Eosinophils 4.7 % (0.0-10.0); %Lymphocytes 14.2 % (21.0-51.0); %Neutrophils 66.2 % (42.0-75.0); Hemoglobin 8.6 g/dL (12.0-16.0); Mean Corpuscular HGB CONC 31.7 g/dL (32.0-36.0); Mean Corpuscular Hemoglobin 30.2 pg (27.0-31.0); Mean Corpuscular Volume 95.5 fL (78.0-98.0); Platelet Count 238 thou/uL (130-400); RBC Distribution Width 13.1 % (11.5-14.5); Red Blood Cell (RBC) Count 2.83 mill/uL (4.20-5.40); White Blood Cell (WBC) Count 5.2 thou/uL (4.8-10.8)
[2019-10-16 05:36] LABS: INR-International Normal Ratio 1.2; Prothrombin Time 15.5 sec (12.0-14.7)
[2019-10-16 05:47] LABS: BUN (Urea Nitrogen) 44 mg/dL (9.8-20.1); Calc. Creatinine Clearance 73 mL/min (70-130); Calcium 9.1 mg/dL (7.8-10.44); Estimated GFR-MDRD 56; Glucose 118 mg/dL (83-110)
[2019-10-16 05:57] LABS: Anion Gap 16 mmol/L (10-20); Carbon Dioxide 39 mmol/L (23-31); Chloride 92 mmol/L (98-107); Potassium 5.3 mmol/L (3.5-5.1); Sodium 142 mmol/L (136-145)
[2019-10-16] MEDS: Atorvastatin Calcium 40 MG TAB PO SCH (09:35)
[2019-10-16] MEDS: Lisinopril 20 MG TAB PO SCH (09:35)
[2019-10-16] MEDS: Aspirin 81 mg Enteric Coated Tablet PO SCH (09:35)
[2019-10-16] MEDS: Spironolactone 25 MG TAB PO SCH (09:38)
[2019-10-16] MEDS: Furosemide 20 MG TAB PO SCH (09:38)
[2019-10-16] MEDS: Colchicine 0.6 MG TAB PO SCH ×2 (09:39→19:46)
[2019-10-16] MEDS: Pantoprazole 40 MG VIAL IVP SCH (09:39)
--- NOTE | 2019-10-16 10:44 | PRG ---
DATE OF SERVICE: 10/16/2019 SUBJECTIVE: The patient is doing reasonably well. Had no complaints. OBJECTIVE: VITAL SIGNS: Temperature 98.2, pulse 70, blood pressure 158/75, O2 saturation 100%. HEENT: Unremarkable. NECK: No adenopathy or JVD. LUNGS: Clear but distant breath sounds. CARDIAC: S1 and S2, regular. ABDOMEN: Soft. EXTREMITIES: No edema. LABORATORY DATA: White blood cell count 5.2, hematocrit 27, and platelet count 238. Sodium 142, potassium 5.3, BUN 44, creatinine 0.9, and glucose 118. ASSESSMENT: 1. Chronic obstructive pulmonary disease with exacerbation. 2. Mild hyperkalemia. RECOMMENDATIONS: I think the spironolactone should be stopped because of the hyperkalemia. She will need to have her potassium rechecked tomorrow. Job ID: [id number]
--- NOTE | 2019-10-16 13:27 | PRG ---
DATE OF SERVICE: 10/16/2019 REASON FOR CONSULTATION: Anemia, history of gastric ulcers. SUBJECTIVE: The patient states that she did not have any acute events or problems overnight. Per nursing staff, she did have 2 diarrhea/semi-solid bowel movements this morning, but were brown in coloration. She currently denies any nausea, vomiting, fevers, chills, hematemesis, hematochezia, or melena. Of note, the patient had been able to tolerate her diet without any difficulty. OBJECTIVE: VITAL SIGNS: Temperature 98.2, pulse 66, blood pressure 134/62, respiratory rate 20, and saturating 100% on 2 L nasal cannula. GENERAL: The patient was lying in bed, in no acute distress. Alert and oriented x4. CARDIOVASCULAR: Regular rate and rhythm. RESPIRATORY: Clear to auscultation bilaterally. ABDOMEN: Normoactive bowel sounds. Soft, nontender, and nondistended. EXTREMITIES: No cyanosis, clubbing, or edema. LABORATORY DATA: CBC with a white blood cell count of 5.2, hemoglobin 8.6, hematocrit 27, and platelets 238. INR 1.2. Chemistry with a sodium of 142, potassium 5.3, chloride 92, CO2 of 39, BUN 44, creatinine 0.96, and glucose 118. IMAGING DATA: No current GI imaging is available for review. ASSESSMENT AND PLAN: The patient is a 79-year-old female with past medical history of atrial fibrillation, on chronic anticoagulation; chronic obstructive pulmonary disease; hypertension; diabetes; hyperlipidemia; coronary artery disease status post percutaneous coronary intervention and stent placement; osteoarthritis; nephrolithiasis; and peptic ulcer disease, presenting with continued anemia with no clear etiology, concerning for occult gastrointestinal bleeding. Anemia/gastric ulcers: The patient states that she was evaluated approximately 1 year ago for an anemia with unknown etiology with both an esophagogastroduodenoscopy and colonoscopy, that showed stomach ulcers and normal findings within the colon. During the course of this hospitalization, she has had a mildly downtrending hemoglobin and hematocrit, concerning for the presence of possible gastrointestinal bleeding. Subsequently, she underwent upper endoscopy on 10/15/2019, which showed the presence of two small 1- to 2-mm clean-based ulcerations in the gastric antrum with biopsies taken from this for Helicobacter pylori status. There was also some mild erosive duodenitis, but most likely secondary gastric ulcers. Since the procedure, her hemoglobin and hematocrit are actually up-trending nor has she had any evidence of overt gastrointestinal bleeding, making an upper gastrointestinal bleed much less likely. I broached the subject again about possibly proceeding with a colonoscopy and she was reluctant to do so at this time. RECOMMENDATIONS: 1. Would continue to trend her hemoglobin and hematocrit and transfuse as necessary to maintain the hemoglobin and hematocrit of 7/21. 2. Continue to monitor clinically for signs of active GI bleeding. 3. Would follow up on the biopsy results, and if positive, we will treat the patient with quadruple therapy. 4. Would hold on colonoscopy for further evaluation of possible GI bleeding per the patient's preference. 5. Would continue to hold her warfarin and Plavix for another 24 hours, then restart if clinically appropriate. 6. Continue PPI 40 mg b.i.d. Given her up-trending hemoglobin and hematocrit, lack of overt evidence of GI bleeding, and relatively insignificant findings on upper endoscopy with the patient refusing colonoscopy at this time, we will sign off. Please call with any questions. Job ID: [id number]
--- NOTE | 2019-10-16 14:04 | PDOC.HOSPP ---
- Subjective Encounter Date: 10/16/19 Encounter Time: 11:15 Subjective: pt up in bed no complains. she did not use her bipap last night. I encouraged her the importance of putting on her bipap when she sleeps. - Objective Vital Signs & Weight: Vital Signs (12 hours) Temp Pulse Pulse Resp BP BP BP 10/16/19 12:29 98.2 F 66 20 134/62 10/16/19 09:57 73 158/75 H 10/16/19 09:35 158/75 H 10/16/19 08:24 98.2 F 70 18 146/80 H Pulse Ox Pulse Ox 10/16/19 12:29 100 10/16/19 09:57 99 10/16/19 09:35 10/16/19 08:24 100 Weight Weight 207 lb 3.752 oz Most Recent Monitor Data Heart Rate from ECG 72 NIBP 127/64 NIBP BP-Mean 85 Respiration from ECG 21 SpO2 100 I&O: 10/15/19 10/16/19 10/17/19 06:59 06:59 06:59 Intake Total 940 1550 Output Total 1150 1550 Balance -210 0 Result Diagrams: 10/16/19 05:10 10/16/19 05:10 Additional Labs: Accuchecks 10/16/19 10/16/19 10/15/19 12:02 06:46 22:15 POC Glucose 175 H 143 H 194 H 10/15/19 16:54 POC Glucose 139 H Hospitalist ROS - Review of Systems Respiratory: denies: cough, dry, shortness of breath, hemoptysis, SOB with excertion, pleuritic pain, sputum, wheezing, other Cardiovascular: denies: chest pain, palpitations, orthopnea, paroxysmal noc. dyspnea, edema, light headedness, other Gastrointestinal: denies: nausea, vomiting, abdominal pain, diarrhea, constipation, melena, hematochezia, other - Medication Medications: Active Medications Generic Name Dose Route Start Last Admin Trade Name Freq PRN Reason Stop Dose Admin Acetaminophen 650 mg 10/07/19 09:44 10/13/19 06:45 Tylenol PO 650 mg Q4H PRN Administration Headache/Fever/Mild Pain (1-3) Albuterol Sulfate 2 puff 10/07/19 09:52 10/09/19 08:57 Proventil Hfa INH 2 puff Q4H PRN Administration SOB Alprazolam 0.5 mg 10/07/19 09:44 10/11/19 22:39 Xanax PO 0.5 mg BID PRN Administration Anxiety Aspirin 81 mg 10/08/19 09:00 10/16/19 09:35 Ecotrin PO 81 mg DAILY DUONG Administration Atorvastatin Calcium 40 mg 10/08/19 09:00 10/16/19 09:35 Lipitor PO 40 mg DAILY DUONG Administration Clopidogrel Bisulfate 75 mg 10/08/19 09:00 10/15/19 10:58 Plavix PO 75 mg DAILY DUONG Administration Colchicine 0.6 mg 10/13/19 21:00 10/16/19 09:39 Colchicine PO 0.6 mg BID DUONG Administration Docusate Sodium 100 mg 10/08/19 09:53 10/08/19 10:14 Colace PO 100 mg BIDPRN PRN Administration Constipation Furosemide 20 mg 10/09/19 09:00 10/16/19 09:38 Lasix PO 20 mg DAILY DUONG Administration Insulin Human Lispro 0 units 10/07/19 09:44 10/14/19 12:32 Humalog SC 4 unit .MODERATE SLIDING SC PRN Administration Moderate Correctional Scale Insulin Human Lispro 0 units 10/07/19 09:44 10/13/19 21:17 Humalog SC 3 unit .BEDTIME SLIDING SC PRN Administration Bedtime Correctional Scale Isosorbide Mononitrate 30 mg 10/09/19 09:00 10/16/19 09:35 Imdur Er PO 30 mg DAILY DUONG Administration Lisinopril 50 mg 10/08/19 09:00 10/16/19 09:35 Zestril PO 50 mg DAILY DUONG Administration Melatonin 3 mg 10/12/19 21:23 10/14/19 20:38 Melatonin PO 3 mg HS PRN Administration Insomnia Metoprolol Succinate 50 mg 10/07/19 21:00 10/16/19 09:35 Toprol Xl PO 50 mg BID DUONG Administration Sodium Chloride 10 ml 10/09/19 09:44 10/14/19 20:38 Flush - Normal Saline IVF 10 ml PRN PRN Administration Saline Flush Warfarin Sodium 5 mg 10/12/19 17:00 10/13/19 17:28 Coumadin PO Not Given 1700 DUONG - Exam Neck: negative: supple, symmetric, no JVD, no thyromegaly, no lymphadenopathy, no carotid bruit, JVD Heart: negative: RRR, no murmur, no gallops, no rubs, normal peripheral pulses, irregular, diminshed peripheral pulses, murmur present, II/IV, III/IV Respiratory: negative: CTAB, no wheezes, no rales, no ronchi, normal chest expansion, no tachypnea, normal percussion, rales, rhonchi, tachypneic, wheezes Gastrointestinal: negative: soft, non-tender, non-distended, normal bowel sounds , no palpable masses, no hepatomegaly, no splenomegaly, no bruit, no guarding, no rigidity, tender to palpation, distended, diminished bowl sounds, voluntary guarding Hosp A/P (1) Acute hypercapnic respiratory failure Code(s): J96.02 - ACUTE RESPIRATORY FAILURE WITH HYPERCAPNIA Status: Acute (2) CAD (coronary artery disease) Code(s): I25.10 - ATHSCL HEART DISEASE OF [place] CORONARY ARTERY W/O ANG PCTRS Status: Acute (3) Anemia Code(s): D64.9 - ANEMIA, UNSPECIFIED Status: Acute (4) Chronic anticoagulation Code(s): 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 will get records from her previous hospital. will put her on protonix and get gi to see her. will hold AC for now. she received 2untis of blood. her guiac is negative. 10/14 s/p egd no acute bleeding noted. will hold Coumadin but given pt's recent sent in 11/10 will continue asa/plavix. will monitor hh and continue protonix. 10/15 will continue to monitor hh for now. will start her plavix and Coumadin. will hold her diuretics and will change her lisinopril dose. spoke with case management that pt will need snf that does bipap at night.
[2019-10-16] MEDS: HumaLOG 300 UNITS/3 ML VIAL SC PRN (17:08)
[2019-10-16] MEDS: Warfarin Sodium 5 MG TAB PO SCH (18:22)
[2019-10-17 06:00] LABS: INR-International Normal Ratio 1.1; Prothrombin Time 14.5 sec (12.0-14.7)
[2019-10-17 06:19] LABS: BUN (Urea Nitrogen) 47 mg/dL (9.8-20.1); Calc. Creatinine Clearance 55 mL/min (70-130); Calcium 9.1 mg/dL (7.8-10.44); Estimated GFR-MDRD 41; Glucose 105 mg/dL (83-110)
[2019-10-17 06:22] LABS: Band 1 % (5-11); Eosinophils 5 % (0-10); Hemoglobin 8.3 g/dL (12.0-16.0); Lymphocytes 18 % (21-51); MDiff Complete? YES; Mean Corpuscular HGB CONC 31.4 g/dL (32.0-36.0); Mean Corpuscular Hemoglobin 29.8 pg (27.0-31.0); Mean Platelet Volume 9.3 fL (7.4-10.4); Monocytes 16 % (0-10); Neutrophil 60 % (42-75); Platelet Count 213 thou/uL (130-400); Platelet Morphology Comment Appears Adequate; RBC Distribution Width 13.2 % (11.5-14.5); Red Blood Cell (RBC) Count 2.77 mill/uL (4.20-5.40); White Blood Cell (WBC) Count 4.1 thou/uL (4.8-10.8)
[2019-10-17 06:28] LABS: Anion Gap 18 mmol/L (10-20); Carbon Dioxide 38 mmol/L (23-31); Chloride 92 mmol/L (98-107); Potassium 4.6 mmol/L (3.5-5.1); Sodium 143 mmol/L (136-145)
[2019-10-17] MEDS: Atorvastatin Calcium 40 MG TAB PO SCH (08:36)
[2019-10-17] MEDS: Clopidogrel Bisulfate 75 MG TAB PO SCH (08:36)
[2019-10-17] MEDS: Lisinopril 20 MG TAB PO SCH (08:36)
[2019-10-17] MEDS: Aspirin 81 mg Enteric Coated Tablet PO SCH (08:36)
[2019-10-17] MEDS ORDERED: Sodium Chloride 0.9% 500 ML IV SCH (11:30)
--- NOTE | 2019-10-17 16:28 | PDOC.HOSPP ---
- Subjective Encounter Date: 10/17/19 Encounter Time: 10:15 Subjective: pt up in bed is having diarrhea - Objective Vital Signs & Weight: Vital Signs (12 hours) Temp Pulse Resp BP Pulse Ox 10/17/19 08:45 100 10/17/19 08:00 98.4 F 70 18 130/52 L 100 Weight Weight 207 lb 3.752 oz Most Recent Monitor Data Heart Rate from ECG 72 NIBP 127/64 NIBP BP-Mean 85 Respiration from ECG 21 SpO2 100 I&O: 10/16/19 10/17/19 10/18/19 06:59 06:59 06:59 Intake Total 1550 1080 Output Total 1550 400 Balance 0 680 Result Diagrams: 10/17/19 05:32 10/17/19 05:32 Additional Labs: Accuchecks 10/17/19 10/17/19 10/17/19 16:23 11:42 05:28 POC Glucose 137 H 130 H 124 H 10/16/19 10/16/19 19:46 16:53 POC Glucose 164 H 212 H Hospitalist ROS - Review of Systems Respiratory: denies: cough, dry, shortness of breath, hemoptysis, SOB with excertion, pleuritic pain, sputum, wheezing, other Cardiovascular: denies: chest pain, palpitations, orthopnea, paroxysmal noc. dyspnea, edema, light headedness, other Gastrointestinal: reports: diarrhea Genitourinary: denies: dysuria, frequency, incontinence, hematuria, retention, other - Medication Medications: Active Medications Generic Name Dose Route Start Last Admin Trade Name Freq PRN Reason Stop Dose Admin Acetaminophen 650 mg 10/07/19 09:44 10/13/19 06:45 Tylenol PO 650 mg Q4H PRN Administration Headache/Fever/Mild Pain (1-3) Albuterol Sulfate 2 puff 10/07/19 09:52 10/09/19 08:57 Proventil Hfa INH 2 puff Q4H PRN Administration SOB Aspirin 81 mg 10/08/19 09:00 10/17/19 08:36 Ecotrin PO 81 mg DAILY DUONG Administration Atorvastatin Calcium 40 mg 10/08/19 09:00 10/17/19 08:36 Lipitor PO 40 mg DAILY DUONG Administration Clopidogrel Bisulfate 75 mg 10/08/19 09:00 10/17/19 08:36 Plavix PO 75 mg DAILY DUONG Administration Docusate Sodium 100 mg 10/08/19 09:53 10/08/19 10:14 Colace PO 100 mg BIDPRN PRN Administration Constipation Insulin Human Lispro 0 units 10/07/19 09:44 10/16/19 17:08 Humalog SC 4 unit .MODERATE SLIDING SC PRN Administration Moderate Correctional Scale Insulin Human Lispro 0 units 10/07/19 09:44 10/13/19 21:17 Humalog SC 3 unit .BEDTIME SLIDING SC PRN Administration Bedtime Correctional Scale Isosorbide Mononitrate 30 mg 10/09/19 09:00 10/17/19 08:36 Imdur Er PO 30 mg DAILY DUONG Administration Lisinopril 20 mg 10/17/19 09:00 10/17/19 08:36 Zestril PO 20 mg DAILY DUONG Administration Melatonin 3 mg 10/12/19 21:23 10/14/19 20:38 Melatonin PO 3 mg HS PRN Administration Insomnia Metoprolol Succinate 50 mg 10/07/19 21:00 10/17/19 08:36 Toprol Xl PO 50 mg BID DUONG Administration Pantoprazole Sodium 40 mg 10/16/19 21:00 10/17/19 08:36 Protonix PO 40 mg BID DUONG Administration Sodium Chloride 10 ml 10/09/19 09:44 10/14/19 20:38 Flush - Normal Saline IVF 10 ml PRN PRN Administration Saline Flush Warfarin Sodium 5 mg 10/12/19 17:00 10/16/19 18:22 Coumadin PO 5 mg 1700 DUONG Administration - Exam Heart: negative: RRR, no murmur, no gallops, no rubs, normal peripheral pulses, irregular, diminshed peripheral pulses, murmur present, II/IV, III/IV Respiratory: negative: CTAB, no wheezes, no rales, no ronchi, normal chest expansion, no tachypnea, normal percussion, rales, rhonchi, tachypneic, wheezes Gastrointestinal: negative: soft, non-tender, non-distended, normal bowel sounds , no palpable masses, no hepatomegaly, no splenomegaly, no bruit, no guarding, no rigidity, tender to palpation, distended, diminished bowl sounds, voluntary guarding Extremities: negative: no cyanosis, no clubbing, no edema, 1+ LE edema, 2+ LE edema, clubbing Hosp A/P (1) Acute hypercapnic respiratory failure Code(s): J96.02 - ACUTE RESPIRATORY FAILURE WITH HYPERCAPNIA Status: Acute (2) CAD (coronary artery disease) Code(s): I25.10 - ATHSCL HEART DISEASE OF [place] CORONARY ARTERY W/O ANG PCTRS Status: Acute (3) Anemia Code(s): D64.9 - ANEMIA, UNSPECIFIED Status: Acute (4) Chronic anticoagulation 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 will get records from her previous hospital. will put her on protonix and get gi to see her. will hold AC for now. she received 2untis of blood. her guiac is negative. 10/14 s/p egd no acute bleeding noted. will hold Coumadin but given pt's recent sent in 11/10 will continue asa/plavix. will monitor hh and continue protonix. 10/15 will continue to monitor hh for now. will start her plavix and Coumadin. will hold her diuretics and will change her lisinopril dose. spoke with case management that pt will need snf that does bipap at night. 10/16 will stop colchicine since pt is having diarrhea. Her hh is low stable. will monitor. possible discharge in the next 24-48hr if ok with gi.
[2019-10-17] MEDS: Warfarin Sodium 5 MG TAB PO SCH (17:38)
[2019-10-17] MEDS: Acetaminophen 325 MG TAB PO PRN (22:27)
[2019-10-18 06:01] LABS: INR-International Normal Ratio 1.2; Prothrombin Time 14.8 sec (12.0-14.7)
[2019-10-18 06:20] LABS: BUN (Urea Nitrogen) 45 mg/dL (9.8-20.1); Calc. Creatinine Clearance 52 mL/min (70-130); Calcium 8.8 mg/dL (7.8-10.44); Estimated GFR-MDRD 38; Glucose 98 mg/dL (83-110)
[2019-10-18 06:28] LABS: Anion Gap 14 mmol/L (10-20); Carbon Dioxide 40 mmol/L (23-31); Chloride 94 mmol/L (98-107); Potassium 4.4 mmol/L (3.5-5.1); Sodium 144 mmol/L (136-145)
[2019-10-18 06:29] LABS: Hemoglobin 7.7 g/dL (12.0-16.0); Mean Corpuscular HGB CONC 32.9 g/dL (32.0-36.0); Mean Platelet Volume 9.5 fL (7.4-10.4); Platelet Count 178 thou/uL (130-400); RBC Distribution Width 13.1 % (11.5-14.5); Red Blood Cell (RBC) Count 2.49 mill/uL (4.20-5.40); White Blood Cell (WBC) Count 3.6 thou/uL (4.8-10.8)
[2019-10-18 06:30] LABS: Band 2 % (5-11); Eosinophils 2 % (0-10); Hypochromia SLIGHT = 6-15 cells (100X) (0-5/hpf); Lymphocytes 34 % (21-51); MDiff Complete? YES; Monocytes 5 % (0-10); Neutrophil 57 % (42-75); Nucleated RBC 1 % (0); Platelet Morphology Comment Appears Adequate
--- NOTE | 2019-10-18 09:51 | ULT ---
ULTRASOUND RETROPERITONEUM COMPLETE: (RENAL) DATE: 10/18/2019 HISTORY: 79-year-old female with acute kidney injury FINDINGS: The right kidney measures 11 x 5 x 6.5 cm. The left kidney measures 10.5 x 5 x 4.5 cm. Both kidneys have normal parenchymal echogenicity. There is no hydronephrosis. No moderate sized or large renal cystic or solid renal lesion is identified. The urinary bladder is presumably empty, because it is not visualized.. IMPRESSION: 1) normal sonographic appearance of the kidneys. 2) urinary bladder not visualized, presumably empty .
[2019-10-18] MEDS: Lisinopril 20 MG TAB PO SCH (10:27)
[2019-10-18] MEDS: Clopidogrel Bisulfate 75 MG TAB PO SCH (10:28)
[2019-10-18] MEDS: Atorvastatin Calcium 40 MG TAB PO SCH (10:28)
[2019-10-18] MEDS: Aspirin 81 mg Enteric Coated Tablet PO SCH (10:29)
--- NOTE | 2019-10-18 10:46 | PDOC.HOSPP ---
- Objective Vital Signs & Weight: Vital Signs (12 hours) Temp Pulse Resp BP Pulse Ox 10/18/19 08:06 98.1 F 67 18 147/69 H 100 10/18/19 00:07 63 10 L 98 Weight Weight 207 lb 3.752 oz Most Recent Monitor Data Heart Rate from ECG 72 NIBP 127/64 NIBP BP-Mean 85 Respiration from ECG 21 SpO2 100 I&O: 10/17/19 10/18/19 10/19/19 06:59 06:59 06:59 Intake Total 1080 1600 Output Total 400 Balance 680 1600 Result Diagrams: 10/18/19 05:17 10/18/19 05:17 Additional Labs: Accuchecks 10/18/19 10/17/19 10/17/19 04:11 21:51 16:23 POC Glucose 104 149 H 137 H 10/17/19 11:42 POC Glucose 130 H Hospitalist ROS - Medication Medications: Active Medications Generic Name Dose Route Start Last Admin Trade Name Freq PRN Reason Stop Dose Admin Acetaminophen 650 mg 10/07/19 09:44 10/17/19 22:27 Tylenol PO 650 mg Q4H PRN Administration Headache/Fever/Mild Pain (1-3) Albuterol Sulfate 2 puff 10/07/19 09:52 10/09/19 08:57 Proventil Hfa INH 2 puff Q4H PRN Administration SOB Aspirin 81 mg 10/08/19 09:00 10/18/19 10:29 Ecotrin PO 81 mg DAILY DUONG Administration Atorvastatin Calcium 40 mg 10/08/19 09:00 10/18/19 10:28 Lipitor PO 40 mg DAILY DUONG Administration Clopidogrel Bisulfate 75 mg 10/08/19 09:00 10/18/19 10:28 Plavix PO 75 mg DAILY DUONG Administration Docusate Sodium 100 mg 10/08/19 09:53 10/08/19 10:14 Colace PO 100 mg BIDPRN PRN Administration Constipation Insulin Human Lispro 0 units 10/07/19 09:44 10/16/19 17:08 Humalog SC 4 unit .MODERATE SLIDING SC PRN Administration Moderate Correctional Scale Insulin Human Lispro 0 units 10/07/19 09:44 10/13/19 21:17 Humalog SC 3 unit .BEDTIME SLIDING SC PRN Administration Bedtime Correctional Scale Isosorbide Mononitrate 30 mg 10/09/19 09:00 10/18/19 10:28 Imdur Er PO 30 mg DAILY DUONG Administration Lisinopril 20 mg 10/17/19 09:00 10/18/19 10:27 Zestril PO 20 mg DAILY DUONG Administration Melatonin 3 mg 10/12/19 21:23 10/14/19 20:38 Melatonin PO 3 mg HS PRN Administration Insomnia Metoprolol Succinate 50 mg 10/07/19 21:00 10/18/19 10:29 Toprol Xl PO 50 mg BID DUONG Administration Pantoprazole Sodium 40 mg 10/16/19 21:00 10/18/19 10:27 Protonix PO 40 mg BID DUONG Administration Sodium Chloride 10 ml 10/09/19 09:44 10/14/19 20:38 Flush - Normal Saline IVF 10 ml PRN PRN Administration Saline Flush Warfarin Sodium 5 mg 10/12/19 17:00 10/17/19 17:38 Coumadin PO 5 mg 1700 DUONG Administration Hosp A/P (1) Acute hypercapnic respiratory failure Code(s): J96.02 - ACUTE RESPIRATORY FAILURE WITH HYPERCAPNIA Status: Acute (2) CAD (coronary artery disease) Code(s): I25.10 - ATHSCL HEART DISEASE OF [place] CORONARY ARTERY W/O ANG PCTRS Status: Acute (3) Anemia Code(s): D64.9 - ANEMIA, UNSPECIFIED Status: Acute (4) Chronic anticoagulation 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 will get records from her previous hospital. will put her on protonix and get gi to see her. will hold AC for now. she received 2untis of blood. her guiac is negative. 10/14 s/p egd no acute bleeding noted. will hold Coumadin but given pt's recent sent in 11/10 will continue asa/plavix. will monitor hh and continue protonix. 10/15 will continue to monitor hh for now. will start her plavix and Coumadin. will hold her diuretics and will change her lisinopril dose. spoke with case management that pt will need snf that does bipap at night. 10/16 will stop colchicine since pt is having diarrhea. Her hh is low stable. will monitor. possible discharge in the next 24-48hr if ok with gi. 10/17 pt had a cardiac cath on 01/10 and had 2DES to mid and distal rca. she had had ablation for her afib in the past. per her discharge summary that was on 10/10 indicated pt to be on plavix and Coumadin instead of asa/plavix and Coumadin. But if her INR is therapeutic.
[2019-10-18 11:45] VITALS: BMI 29.0
[2019-10-18 14:47] LABS: Hemoglobin 7.5 g/dL (12.0-16.0)
[2019-10-18] MEDS: Warfarin Sodium 5 MG TAB PO SCH (16:44)
[2019-10-18] MEDS: HumaLOG 300 UNITS/3 ML VIAL SC PRN (16:48)
--- NOTE | 2019-10-18 17:20 | PRG ---
DATE OF SERVICE: 10/18/2019 SUBJECTIVE: The patient feels fine. She is tolerating diet well. There is no nausea, vomiting or abdominal pain. She has not noted any overt bleeding such as hematochezia or melenic stool. OBJECTIVE: VITAL SIGNS: Temperature 98.9, blood pressure 146/58, and pulse 76. GENERAL: She is alert, conversant, in no distress. HEENT: Anicteric sclerae. Oropharynx is moist. CV: Normal S1 and S2. Regular rate and rhythm. CHEST: Chest exam shows a breath sound. ABDOMEN: Protuberant, but soft. No distention. No tympany. No tenderness. She has active bowel sounds. EXTREMITIES: No edema. LABORATORY DATA: Hemoglobin 7.5 (continue to trend from a high of 8.6 two days ago). Platelet count of 178. Electrolytes within normal range. Creatinine 1.34. INR 1.2. ASSESSMENT: 1. Chronic anemia in the setting of having peptic ulcer disease. Recent upper endoscopy on 10/14, three days ago, showed 2 small nonbleeding ulcerations and erosive duodenitis without bleeding. Hemoglobin has been trending downward slowly since that time without any overt bleeding. She reports having had a normal colonoscopy less than a year ago in [place]. The patient is currently on warfarin, Plavix, and aspirin. At this point, I am not certain whether she has a very slow GI bleed without any visible evidence. 2. Coronary artery disease. 3. Adult-onset diabetes. 4. Hypertension. 5. Atrial fibrillation. RECOMMENDATION: I have discussed with Ms. Gilman, we will proceed with an upper endoscopy first in the morning to ascertain no bleeding from her small ulcers and erosions that was seen on recent upper endoscopy. She does not need to have a colonoscopy as it was normal less than a year ago. If there are no signs of bleeding, then she can be discharged on her anti-platelet medication and anticoagulant. Job ID: [id number]
[2019-10-18] MEDS: Acetaminophen 325 MG TAB PO PRN (19:49)
[2019-10-19] MEDS ORDERED: Fentanyl 100 MCG/2 ML VIAL ONE (08:39)
--- NOTE | 2019-10-19 10:05 | OP ---
DATE OF PROCEDURE: 10/19/2019 PROCEDURE PERFORMED: Esophagogastroduodenoscopy. PREOPERATIVE DIAGNOSES: Anemia and followup of gastric ulcer. DESCRIPTION OF PROCEDURE: Informed consent was obtained from the patient. She was sedated with total intravenous anesthesia. The bite block was placed, and the endoscope was advanced easily to the second portion of the duodenum and retroflexion was performed in the stomach. The esophagus was normal. The GE junction was normal. Stomach again had two small 2 to 3 mm ulcerations in the antrum with reactive edges that appear consistent with healing ulcers. Biopsies a few days ago were negative for H pylori. There was no stigmata of recent bleeding or high-risk lesions. The stomach was otherwise normal including retroflexed views. The pylorus and first and second portions of the duodenum were normal. IMPRESSION: 1. Two small 2 to 3 mm ulcerations in the antrum with reactive edges consistent with healing ulcers. Biopsies on 10/15/2019 were negative for Helicobacter pylori. 2. Otherwise normal esophagogastroduodenoscopy. 3. There was no stigmata of recent bleeding. There are no high-risk lesions for repeat bleeding. RECOMMENDATIONS: 1. Continue pantoprazole twice daily for 2 weeks and then back off to once daily. 2. Okay to continue the anti-platelet and anticoagulation medications from an ulcer standpoint. 3. I will sign off. Please call if GI can be of assistance. Job ID: [id number]
[2019-10-19] MEDS: Clopidogrel Bisulfate 75 MG TAB PO SCH (10:18)
[2019-10-19] MEDS: Atorvastatin Calcium 40 MG TAB PO SCH (10:18)
[2019-10-19] MEDS: Lisinopril 20 MG TAB PO SCH (10:18)
[2019-10-19] MEDS: Aspirin 81 mg Enteric Coated Tablet PO SCH (10:18)
[2019-10-19 11:29] LABS: INR-International Normal Ratio 1.4; Prothrombin Time 16.7 sec (12.0-14.7)
[2019-10-19 11:30] LABS: BUN (Urea Nitrogen) 41 mg/dL (9.8-20.1); Calc. Creatinine Clearance 52 mL/min (70-130); Calcium 9.2 mg/dL (7.8-10.44); Estimated GFR-MDRD 38; Glucose 184 mg/dL (83-110)
[2019-10-19 11:44] LABS: Chloride 93 mmol/L (98-107); Potassium 4.5 mmol/L (3.5-5.1); Sodium 140 mmol/L (136-145)
[2019-10-19 11:46] LABS: Anion Gap 16 mmol/L (10-20); Carbon Dioxide 36 mmol/L (23-31)
[2019-10-19] MEDS: HumaLOG 300 UNITS/3 ML VIAL SC PRN (11:51)
[2019-10-19] MEDS ORDERED: PROPOFOL 200 MG/20 ML VIAL ONE (12:20)
[2019-10-19] MEDS ORDERED: Simethicone Chewable 80 MG TAB PO PRN (16:22)
--- NOTE | 2019-10-19 16:35 | PDOC.HOSPP ---
- Subjective Encounter Date: 10/19/19 Encounter Time: 15:00 Subjective: pt up in bed had diarrhea x2 - Objective Vital Signs & Weight: Vital Signs (12 hours) Temp Pulse Resp BP BP BP Pulse Ox 10/19/19 10:16 97.8 F 78 18 169/82 H 96 10/19/19 08:00 97 10/19/19 07:24 98 F 74 20 132/74 97 10/19/19 05:01 97.6 F 75 17 148/79 H 98 Weight Admit Weight 208 lb 6.4 oz Weight 207 lb 3.752 oz Most Recent Monitor Data Heart Rate from ECG 72 NIBP 127/64 NIBP BP-Mean 85 Respiration from ECG 21 SpO2 100 I&O: 10/18/19 10/19/19 10/20/19 06:59 06:59 06:59 Intake Total 1600 1060 Balance 1600 1060 Result Diagrams: 10/18/19 14:16 10/19/19 10:55 Additional Labs: Accuchecks 10/19/19 10/19/19 10/18/19 11:31 04:38 23:23 POC Glucose 277 H 135 H 121 H 10/18/19 16:50 POC Glucose 190 H Hospitalist ROS - Review of Systems Cardiovascular: denies: chest pain, palpitations, orthopnea, paroxysmal noc. dyspnea, edema, light headedness, other Gastrointestinal: reports: diarrhea Genitourinary: denies: dysuria, frequency, incontinence, hematuria, retention, other - Medication Medications: Active Medications Generic Name Dose Route Start Last Admin Trade Name Freq PRN Reason Stop Dose Admin Acetaminophen 650 mg 10/07/19 09:44 10/18/19 19:49 Tylenol PO 650 mg Q4H PRN Administration Headache/Fever/Mild Pain (1-3) Albuterol Sulfate 2 puff 10/07/19 09:52 10/09/19 08:57 Proventil Hfa INH 2 puff Q4H PRN Administration SOB Aspirin 81 mg 10/08/19 09:00 10/19/19 10:18 Ecotrin PO 81 mg DAILY DUONG Administration Atorvastatin Calcium 40 mg 10/08/19 09:00 10/19/19 10:18 Lipitor PO 40 mg DAILY DUONG Administration Clopidogrel Bisulfate 75 mg 10/08/19 09:00 10/19/19 10:18 Plavix PO 75 mg DAILY DUONG Administration Docusate Sodium 100 mg 10/08/19 09:53 10/08/19 10:14 Colace PO 100 mg BIDPRN PRN Administration Constipation Insulin Human Lispro 0 units 10/07/19 09:44 10/19/19 11:51 Humalog SC 6 unit .MODERATE SLIDING SC PRN Administration Moderate Correctional Scale Insulin Human Lispro 0 units 10/07/19 09:44 10/13/19 21:17 Humalog SC 3 unit .BEDTIME SLIDING SC PRN Administration Bedtime Correctional Scale Isosorbide Mononitrate 30 mg 10/09/19 09:00 10/19/19 10:18 Imdur Er PO 30 mg DAILY DUONG Administration Lisinopril 20 mg 10/17/19 09:00 10/19/19 10:18 Zestril PO 20 mg DAILY DUONG Administration Melatonin 3 mg 10/12/19 21:23 10/14/19 20:38 Melatonin PO 3 mg HS PRN Administration Insomnia Metoprolol Succinate 50 mg 10/07/19 21:00 10/19/19 06:23 Toprol Xl PO 50 mg BID DUONG Administration Pantoprazole Sodium 40 mg 10/16/19 21:00 10/19/19 10:18 Protonix PO 40 mg BID DUONG Administration Sodium Chloride 10 ml 10/09/19 09:44 10/14/19 20:38 Flush - Normal Saline IVF 10 ml PRN PRN Administration Saline Flush Warfarin Sodium 5 mg 10/12/19 17:00 10/18/19 16:44 Coumadin PO 5 mg 1700 DUONG Administration - Exam Neck: negative: supple, symmetric, no JVD, no thyromegaly, no lymphadenopathy, no carotid bruit, JVD Heart: negative: RRR, no murmur, no gallops, no rubs, normal peripheral pulses, irregular, diminshed peripheral pulses, murmur present, II/IV, III/IV Respiratory: negative: CTAB, no wheezes, no rales, no ronchi, normal chest expansion, no tachypnea, normal percussion, rales, rhonchi, tachypneic, wheezes Gastrointestinal: negative: soft, non-tender, non-distended, normal bowel sounds , no palpable masses, no hepatomegaly, no splenomegaly, no bruit, no guarding, no rigidity, tender to palpation, distended, diminished bowl sounds, voluntary guarding Hosp A/P (1) Acute hypercapnic respiratory failure Code(s): J96.02 - ACUTE RESPIRATORY FAILURE WITH HYPERCAPNIA Status: Acute (2) CAD (coronary artery disease) Code(s): I25.10 - ATHSCL HEART DISEASE OF [place] CORONARY ARTERY W/O ANG PCTRS Status: Acute (3) Anemia Code(s): D64.9 - ANEMIA, UNSPECIFIED Status: Acute (4) Chronic anticoagulation Code(s): Z79.01 - WATER RESOURCE SPECIALIST (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 will get records from her previous hospital. will put her on protonix and get gi to see her. will hold AC for now. she received 2untis of blood. her guiac is negative. 10/14 s/p egd no acute bleeding noted. will hold Coumadin but given pt's recent sent in 11/10 will continue asa/plavix. will monitor hh and continue protonix. 10/15 will continue to monitor hh for now. will start her plavix and Coumadin. will hold her diuretics and will change her lisinopril dose. spoke with case management that pt will need snf that does bipap at night. 10/16 will stop colchicine since pt is having diarrhea. Her hh is low stable. will monitor. possible discharge in the next 24-48hr if ok with gi. 10/17 pt had a cardiac cath on 01/10 and had 2DES to mid and distal rca. she had had ablation for her afib in the past. per her discharge summary that was on 10/10 indicated pt to be on plavix and Coumadin instead of asa/plavix and Coumadin. But if her INR is therapeutic. 10/18 will continue coumadin/asa/plavix once her inr is therapeutic will stop asa. will check hh in am. s/p repeat egd due to low hh. will monitor her for one more day if stable will discharge in am.
[2019-10-19] MEDS: Warfarin Sodium 5 MG TAB PO SCH (17:15)
[2019-10-19] MEDS: Acetaminophen 325 MG TAB PO PRN (20:20)
[2019-10-20 06:27] LABS: #Eosinphils 0.2 thou/uL (0.0-0.7); #Monocytes 0.5 thou/uL (0.11-0.59); #Neutrophils 2.8 thou/uL (1.40-6.50); %Basophils 0.8 % (0.0-1.0); %Lymphocytes 21.7 % (21.0-51.0); %Monocytes 11.6 % (0.0-10.0); %Neutrophils 60.9 % (42.0-75.0); Hemoglobin 7.4 g/dL (12.0-16.0); Mean Corpuscular HGB CONC 33.2 g/dL (32.0-36.0); Mean Corpuscular Volume 93.1 fL (78.0-98.0); Mean Platelet Volume 9.9 fL (7.4-10.4); Platelet Count 175 thou/uL (130-400); RBC Distribution Width 13.1 % (11.5-14.5); Red Blood Cell (RBC) Count 2.39 mill/uL (4.20-5.40); White Blood Cell (WBC) Count 4.6 thou/uL (4.8-10.8)
[2019-10-20 06:41] LABS: BUN (Urea Nitrogen) 42 mg/dL (9.8-20.1); Calc. Creatinine Clearance 58 mL/min (70-130); Calcium 8.9 mg/dL (7.8-10.44); Estimated GFR-MDRD 43; Glucose 116 mg/dL (83-110)
[2019-10-20 06:51] LABS: Anion Gap 15 mmol/L (10-20); Carbon Dioxide 36 mmol/L (23-31); Chloride 95 mmol/L (98-107); Potassium 4.4 mmol/L (3.5-5.1); Sodium 142 mmol/L (136-145)
[2019-10-20] MEDS: Clopidogrel Bisulfate 75 MG TAB PO SCH (08:31)
[2019-10-20] MEDS: Aspirin 81 mg Enteric Coated Tablet PO SCH (08:31)
[2019-10-20] MEDS: Atorvastatin Calcium 40 MG TAB PO SCH (08:31)
[2019-10-20] MEDS: Lisinopril 20 MG TAB PO SCH (08:32)
[2019-10-20 09:06] LABS: INR-International Normal Ratio 1.6; Prothrombin Time 18.6 sec (12.0-14.7)
[2019-10-20 14:33] VITALS: BP 137/70; TEMP 98.1
--- NOTE | 2019-10-21 02:36 | DIS ---
DATE OF ADMISSION: 10/07/2019 DATE OF DISCHARGE: 10/20/2019 DISCHARGE DIAGNOSES: As of the following; 1. Hypercapnic respiratory failure, acute. 2. Coronary artery disease. 3. Acute kidney injury on chronic kidney disease stage 3. 4. Atrial fibrillation, rate controlled. 5. Hypertension. 6. Anemia. 7. Chronic anticoagulation. 8. Diabetes type 2. 9. Nonbleeding ulcers. HOSPITAL COURSE: The patient is a 79-year-old female, who initially presented to the hospital on 10/06 with complaints of chest pain and just change in mental status. The patient at this time was initially seen by Cardiology. Given her recent stress test done, did not do any acute intervention. I did get records from [place], [place] and these are scanned in the computer. The patient appears to have two stents placed in her RCA in September of 2018. Per the cardiology's recommendation, she was supposed to be on Plavix and Coumadin only, if the Coumadin level was therapeutic. However, at home she has been taking aspirin, Plavix, and Coumadin. She was noted to have some lower back pain. She had a CT lumbar here that had significant canal stenosis. She did not have any weakness or numbness or tingling. However, also she was noted to have some pain in both her feet. At this time, colchicine was started since she does have a history of gout and she was able to ambulate with therapy without any problems. However, while being on colchicine twice a day. She did develop diarrhea. Her stool studies were checked. They were negative. She continued to improve. Her colchicine was discontinued. Her diarrhea resolved. The patient received a few units of blood total off 2 units of blood while she was in the hospital for low H and H. She states that she has had a history of bleeding ulcers. At this time, we went ahead and did an endoscopy on her by GI, which indicated that she has a two small clean based ulcers in the gastric antrum and they were biopsied and she had some mild erosive duodenitis. At this time, her H and H continued to trend downward. At this time, she was rescoped again a second time and again, no acute active bleeding was noted. I have advised her and I also wrote this in her discharge paperwork that she when her INR is 2, she will stop the aspirin and continue Plavix and Coumadin. The patient feels great. She is going to be discharged home to follow up with primary. She was also seen by a Respiratory given her significant hypercapnia. At this time, she is recommended to use CPAP at home. The patient states that she does have a home BiPAP; however, she at times, she does not like to use it. I have advised her to continue using it. Also, she was noted to have some elevated creatinine; however, the creatinine improved. Ultrasound did not show any acute abnormalities. MEDICATIONS: Her home medications will be as of the following; 1. Aspirin 81 mg daily. 2. Plavix 75 mg daily. 3. Coumadin 5 mg daily. Her INR was 1.6. Once her INR is therapeutic at 2, she may discontinue the aspirin. 4. Metoprolol 50 mg b.i.d. 5. Isosorbide 30 mg daily. 6. Lasix 30 mg daily. 7. Colchicine as needed. 8. Atorvastatin 40 mg daily. 9. Lisinopril 20 mg daily. 10. Protonix 40 mg daily. PHYSICAL EXAMINATION: VITAL SIGNS: On discharge; temperature of 98.1, heart rate 84, respiratory rate 18, O2 saturations 96% on room air, and blood pressure 137/70. GENERAL: She is awake, alert, and oriented x3. Does not appear in distress. CV: S1 and S2 present. No murmurs, rubs, or gallops. ABDOMEN: Soft and nontender. Bowel sounds are present x2. Again, she will be [facility] facility. She will follow up with her primary. Job ID: [id number]
--- NOTE | 2019-10-23 09:10 | PQF ---
CLINICAL DOCUMENTATION CLARIFICATION FORM: Dear : Laurence Wyman Date / Time: 10/23/19 09:10 Please exercise your independent, professional judgment in responding to the clarification form. Clinical indicators are provided on the bottom of this form for your review Can you please specify the etiology of patients SOB? Please check appropriate box(es): [ ] SOB due to Crescendo Angina [X ] SOB due to acute respiratory failure [ ] SOB due to COPD exacerbation [ ] Other diagnosis [ ] Unable to determine Physician Signature: Date/Time: For continuity of documentation, please document condition throughout progress notes and discharge summary. Thank You. To be completed by CDI/Coding staff for physician review: Present Clinical Indicators - Signs / Symptoms / Labs Results and Location in Medical Record [x] Hypercapnic respiratory failure acute DS 10/19 [x] Chest Xray: right lower lobe opacity representing edema or infiltrate Chest Xray 10/06 [x] She did have some mild expiratory wheeze and occasional rhonchi HP 10/06 [x] hypercapnic respiratory failure likely from NAZIA PN 10/11 [x] Acute on chronic hypoxic and hypercapnic respiratory failure secondary to combined COPD and OHS PN 10/12 [x] Blood gas: ph: 10/10=7.31 10/11=7.35 pc02:10/10=96.4 10/11=84.7 p02: 10/10=85.3 10/11=80.1 Labs 10/10 [x] COPD exacerbation PN 10/15 [x] unstable/crescendo angina- this may be exacerbated by severe anemia PN Present Risk Factors Results and Location in Medical Record [x] CHF ED Notes 10/06 [x] Afib ED Notes 10/06 [x] DM ED Notes 10/06 [x] COPD PN 10/12 [x] OHS PN 10/12 [x] CKD 3 DS 10/19 [x] 79 years old female DS 10/19 Present Treatments Results and Location in Medical Record [x] Chest Xray Chest Xray 10/06 [x] BIPAP PN 10/12 [x] ABG monitoring PN 10/11 [x] Pulmonology Consult Consult 10/11 CDS/Networking Technology Instructor Signature: Lakisha Vargas Phone #: ext [phone] Date/Time: 10/23/19 09:10 This is a permanent part of the Medical Record [facility]
== END 2019-10-20 14:32 | DRG 189 ==
LOC: ERS 01:41 → 2NO 04:45 → T4-B 10-09 12:46 → IMCU/EMU 10-11 18:11 → T4-A 10-15 16:22
PROVIDERS: ADMIT Internal Medicine; ATTEND Internal Medicine
PROC: 30233N1 Transfusion of Nonautologous Red Blood Cells into Peripheral Vein, Percutaneous Approach (ICD-10-PCS; 2019-10-08)
PROC: 5A09457 Assistance with Respiratory Ventilation, 24-96 Consecutive Hours, Continuous Positive Airway Pressure (ICD-10-PCS; 2019-10-11)
PROC: 0DB78ZX Excision of Stomach, Pylorus, Via Natural or Artificial Opening Endoscopic, Diagnostic (ICD-10-PCS; 2019-10-15)
PROC: 0DJ08ZZ Inspection of Upper Intestinal Tract, Via Natural or Artificial Opening Endoscopic (ICD-10-PCS; principal; 2019-10-19)
DX: J96.01 Acute respiratory failure with hypoxia (principal); I48.21 Permanent atrial fibrillation; I25.110 Atherosclerotic heart disease of native coronary artery with unstable angina pectoris; E66.2 Morbid (severe) obesity with alveolar hypoventilation; J44.1 Chronic obstructive pulmonary disease with (acute) exacerbation; N17.9 Acute kidney failure, unspecified; I13.0 Hypertensive heart and chronic kidney disease with heart failure and stage 1 through stage 4 chronic kidney disease, or unspecified chronic kidney disease; K27.9 Peptic ulcer, site unspecified, unspecified as acute or chronic, without hemorrhage or perforation; J96.02 Acute respiratory failure with hypercapnia; I50.9 Heart failure, unspecified; Z96.653 Presence of artificial knee joint, bilateral; M19.90 Unspecified osteoarthritis, unspecified site; M10.9 Gout, unspecified; K25.9 Gastric ulcer, unspecified as acute or chronic, without hemorrhage or perforation; K29.80 Duodenitis without bleeding; K26.9 Duodenal ulcer, unspecified as acute or chronic, without hemorrhage or perforation; E87.5 Hyperkalemia; E78.5 Hyperlipidemia, unspecified; E11.22 Type 2 diabetes mellitus with diabetic chronic kidney disease; D63.1 Anemia in chronic kidney disease; N18.3 Chronic kidney disease, stage 3 (moderate); M48.061 Spinal stenosis, lumbar region without neurogenic claudication; Z95.5 Presence of coronary angioplasty implant and graft; Z90.710 Acquired absence of both cervix and uterus; Z88.5 Allergy status to narcotic agent; Z88.8 Allergy status to other drugs, medicaments and biological substances; Z79.01 Long term (current) use of anticoagulants; Z79.84 Long term (current) use of oral hypoglycemic drugs; Z79.82 Long term (current) use of aspirin; Z79.51 Long term (current) use of inhaled steroids; Z79.899 Other long term (current) drug therapy; Z87.891 Personal history of nicotine dependence; Z68.29 Body mass index [BMI] 29.0-29.9, adult; Z91.81 History of falling
CPT/HCPCS: 36415; 36416; 36430; 71045; 72131; 76770; 80048; 80053; 80061; 82274; 82306; 82728; 82805; 83540; 83550; 83880; 84443; 84484; 84550; 85014; 85018; 85025; 85049; 85610; 85730; 86850; 86900; 86901; 87635; 88305; 88312; 93005; 93306; 94660; 94760; C9113; J2704; J3010; J3430; P9016; U0003

== ENCOUNTER 2019-11-01 08:44 | Emergency (ER) | payer MEDICARE ==
[2019-11-01 09:40] LABS: #Basophils 0.1 thou/uL (0.0-0.2); #Eosinphils 0.3 thou/uL (0.0-0.7); #Lymphocytes 1.1 thou/uL (1.20-3.40); #Monocytes 0.6 thou/uL (0.11-0.59); #Neutrophils 4.9 thou/uL (1.40-6.50); %Basophils 1.1 % (0.0-1.0); %Eosinophils 4.8 % (0.0-10.0); %Lymphocytes 16.3 % (21.0-51.0); %Monocytes 8.6 % (0.0-10.0); %Neutrophils 69.3 % (42.0-75.0); Hemoglobin 7.5 g/dL (12.0-16.0); Mean Corpuscular HGB CONC 31.1 g/dL (32.0-36.0); Mean Corpuscular Hemoglobin 30.4 pg (27.0-31.0); Mean Corpuscular Volume 97.5 fL (78.0-98.0); Mean Platelet Volume 10.1 fL (7.4-10.4); Platelet Count 238 thou/uL (130-400); RBC Distribution Width 14.3 % (11.5-14.5); Red Blood Cell (RBC) Count 2.46 mill/uL (4.20-5.40)
[2019-11-01 09:59] LABS: ALT (SGPT) 12 U/L (8-55); AST (SGOT) 13 U/L (5-34); Albumin 4.2 g/dL (3.4-4.8); Alkaline Phosphatase 71 U/L (40-110); Anion Gap 15 mmol/L (10-20); BUN (Urea Nitrogen) 30 mg/dL (9.8-20.1); Bilirubin, Total 0.6 mg/dL (0.2-1.2); Calc. Creatinine Clearance 0 mL/min (70-130); Calcium 9.7 mg/dL (7.8-10.44); Carbon Dioxide 35 mmol/L (23-31); Chloride 96 mmol/L (98-107); Estimated GFR-MDRD 45; Globulin 2.6 g/dL (2.4-3.5); Glucose 153 mg/dL (83-110); Potassium 5.1 mmol/L (3.5-5.1); Protein, Total 6.8 g/dL (6.0-8.3); Sodium 141 mmol/L (136-145)
== END 2019-11-01 10:49 | disposition home or self-care (01) ==
LOC: ERS 08:44
DX: D64.9 Anemia, unspecified (principal); I11.0 Hypertensive heart disease with heart failure; I50.9 Heart failure, unspecified; I49.9 Cardiac arrhythmia, unspecified; I48.91 Unspecified atrial fibrillation; E11.9 Type 2 diabetes mellitus without complications; J44.9 Chronic obstructive pulmonary disease, unspecified; F41.9 Anxiety disorder, unspecified; F32.9 Major depressive disorder, single episode, unspecified; Z79.899 Other long term (current) drug therapy; Z79.51 Long term (current) use of inhaled steroids; Z79.82 Long term (current) use of aspirin; Z79.84 Long term (current) use of oral hypoglycemic drugs; Z79.01 Long term (current) use of anticoagulants
CPT/HCPCS: 80053; 86850; 86900; 86901; 99284

== ENCOUNTER 2019-11-20 08:33 | Inpatient (IN) | payer MEDICARE, OTHER ==
--- NOTE | 2019-11-20 09:13 | RAD ---
Exam: Chest one view HISTORY:Weakness Comparison: 10/07/2019 FINDINGS: Cardiac silhouette: Normal. Calcification of the mitral annulus. Aorta: Unremarkable Pulmonary vessels: Normal Costophrenic angles: Clear LUNGS: No masses or consolidation. Pneumothorax: None Osseous abnormalities: None IMPRESSION: No acute cardiopulmonary process.
[2019-11-20 09:17] LABS: #Eosinphils 0.2 thou/uL (0.0-0.7); #Monocytes 0.7 thou/uL (0.11-0.59); #Neutrophils 7.2 thou/uL (1.40-6.50); %Basophils 0.3 % (0.0-1.0); %Eosinophils 2.4 % (0.0-10.0); %Lymphocytes 11.2 % (21.0-51.0); %Neutrophils 78.1 % (42.0-75.0); Hemoglobin 4.9 g/dL (12.0-16.0); Mean Corpuscular HGB CONC 31.4 g/dL (32.0-36.0); Mean Corpuscular Hemoglobin 30.4 pg (27.0-31.0); Mean Corpuscular Volume 96.8 fL (78.0-98.0); Mean Platelet Volume 10.2 fL (7.4-10.4); Platelet Count 236 thou/uL (130-400); RBC Distribution Width 15.4 % (11.5-14.5); Red Blood Cell (RBC) Count 1.62 mill/uL (4.20-5.40); White Blood Cell (WBC) Count 9.3 thou/uL (4.8-10.8)
[2019-11-20 09:35] LABS: ALT (SGPT) 8 U/L (8-55); AST (SGOT) 12 U/L (5-34); Albumin 3.6 g/dL (3.4-4.8); Alkaline Phosphatase 58 U/L (40-110); BUN (Urea Nitrogen) 55 mg/dL (9.8-20.1); Bilirubin, Total 0.4 mg/dL (0.2-1.2); Calc. Creatinine Clearance 0 mL/min (70-130); Calcium 8.7 mg/dL (7.8-10.44); Estimated GFR-MDRD 45; Globulin 2.2 g/dL (2.4-3.5); Glucose 213 mg/dL (83-110); Protein, Total 5.8 g/dL (6.0-8.3)
[2019-11-20 09:40] LABS: PTT 52.9 sec (22.9-36.1); Prothrombin Time 45.2 sec (12.0-14.7)
[2019-11-20 09:44] LABS: Anion Gap 17 mmol/L (10-20); Carbon Dioxide 34 mmol/L (23-31); Chloride 98 mmol/L (98-107); Potassium 4.4 mmol/L (3.5-5.1); Sodium 145 mmol/L (136-145)
[2019-11-20 09:46] LABS: INR-International Normal Ratio 4.9
[2019-11-20 09:59] LABS: Iron 76 ug/dL (50-170); Iron Binding Capacity, Total 386 mcg/dL (265-497)
[2019-11-20] MEDS ORDERED: Pantoprazole 40 MG VIAL IVP SCH ×2 (10:15→21:00)
--- NOTE | 2019-11-20 10:21 | PDOC.HHP ---
Hospitalist HPI - History of Present Illness generalized weakness, melena History of Present Illness: 79yo F w/ MHx of persistent afib, CAD s/p stent placement (RCA, september 2018), and gastric ulcer presents with generalized weakness and melenic stool. Recently hositalized for chest pain and generalized weakness. During inpatient stay, she required multiple blood transfusions for anemia, two EGDs were carried out and showed small gastric ulcers, nonbleeding, healing, so she was discharged to rehab. In rehab, did well and INR was well controlled. Dced home on , Initially felt well after discharge but progressively worsened weakness in the past week or so, and on wednesday, had large melenic stool x 2. Of note, patient held aspirin as instructed by her cardiology once her INR reached 2 On encounter, lying comfortably in bed. Denies chest pain, palpitations, dyspnea, abdominal pain, diarrhea, hematuria, external bleeding, vaginal bleeding, recent trauma. ED Course: In the ED, HD stable, HgB 4.9. started pantoprazole, transfused PRBC x 2, and admitted for further management Hospitalist ROS - Review of Systems Constitutional: denies: chills, sweats Respiratory: denies: cough, shortness of breath, SOB with excertion, pleuritic pain Cardiovascular: denies: chest pain, palpitations, orthopnea, paroxysmal noc. dyspnea, edema Gastrointestinal: reports: melena. denies: nausea, vomiting, abdominal pain, diarrhea, hematochezia Genitourinary: denies: hematuria Skin: denies: rash, lesions, bruising Neurological: reports: weakness (general) All other systems reviewed; all pertinent +/- noted in HPI/Subj Hospitalist History - Past Medical History Source: old records Other Medical History: persistent atrial fibrillation, COPD, hypertension, diabetes mellitus, hyperlipidemia, coronary artery disease, and osteoarthritis. PAST SURGICAL HISTORY: She has had bladder stone removed and bilateral total knee replacements as well as 2 stents placed a year ago. - Past Surgical History Other Surgical History: She has had bladder stone removed and bilateral total knee replacements as well as 2 stents placed a year ago. (09/2018) - Family History Other Family History: Significant for cancer, diabetes, and congestive heart failure. - Social History Other Social History: She is , but . She is a former smoker. She quit 10 years ago and prior to that she says she smoked "many years." She has 3 children of her own and Holly, who is her oldest daughter is her surrogate decision maker, - Exam General Appearance: NAD, awake alert Eye - other findings: pale conjunctivate ENT: normocephalic atraumatic, moist mucosa Neck: no JVD Heart: no gallops, normal peripheral pulses, irregular Heart - other findings: afib rate controlled on telemetry Respiratory: CTAB, no wheezes, no rales, no ronchi Respiratory - other findings: good air flow throughout Gastrointestinal: soft, non-tender, non-distended, normal bowel sounds Skin - other findings: pale, no echymoses, cold extremities Neurological: cranial nerve grossly intact, no focal deficits. negative: speech deficit Psychiatric: normal affect, normal behavior, A&O x 3 Hospitalist Results - Labs Result Diagrams: 11/20/19 20:37 11/20/19 08:52 Lab results: WBC 9.3 thou/uL (4.8-10.8) 11/20/19 08:52 Hgb 4.9 g/dL (12.0-16.0) L* 11/20/19 08:52 Hct 15.7 % (36.0-47.0) L 11/20/19 08:52 MCV 96.8 fL (78.0-98.0) 11/20/19 08:52 Plt Count 236 thou/uL (130-400) 11/20/19 08:52 Neutrophils % 78.1 % (42.0-75.0) H 11/20/19 08:52 Sodium 145 mmol/L (136-145) 11/20/19 08:52 Potassium 4.4 mmol/L (3.5-5.1) 11/20/19 08:52 Chloride 98 mmol/L (98-107) 11/20/19 08:52 Carbon Dioxide 34 mmol/L (23-31) H 11/20/19 08:52 BUN 55 mg/dL (9.8-20.1) H 11/20/19 08:52 Creatinine 1.16 mg/dL (0.6-1.1) H 11/20/19 08:52 Glucose 213 mg/dL (83-110) H 11/20/19 08:52 Calcium 8.7 mg/dL (7.8-10.44) 11/20/19 08:52 Total Bilirubin 0.4 mg/dL (0.2-1.2) 11/20/19 08:52 AST 12 U/L (5-34) 11/20/19 08:52 ALT 8 U/L (8-55) 11/20/19 08:52 Alkaline Phosphatase 58 U/L (40-110) 11/20/19 08:52 Troponin I 0.012 ng/mL (< 0.028) 11/20/19 08:52 Serum Total Protein 5.8 g/dL (6.0-8.3) L 11/20/19 08:52 Albumin 3.6 g/dL (3.4-4.8) 11/20/19 08:52 - EKG Interpretation EKG: no signs of new ischemia or infarct - Radiology Interpretation Chest x-ray Status: image reviewed by me (no acute cardiopulmonary process) Hospitalist H&P A/P - Plan Plan: Acute symptomatic anemia due to UGIB -p/w supratherapeutic INR and melena on Wednesday, generalized weakness; Guiac -ve in ED; disproportinoally elevated BUN/Cr -pantoprazole IV loaded and mainteance; transfuse prbc x 2; hold warfarin, if another bleeding episode, reverse warfarin with vitamin K and FFP -H&H q6h -IVF 60cc/hr -GI consulted -NPO #CAD (coronary artery disease) #persistent afib stent placed 09/2018; hold plavix and aspirin for now #T2DM -mild correction sliding scale #COPD continue home regimen #HTN hold home antiHTN medications; started labetalol PRN > 160/100 #OHS -bicarb chronically elevated > 30 though no significant wheezing on exam, obese -keep oxygen saturation between 88-92%; don't overoxygenate as may cause respiratory distress -CPAP qhs 10mmHg Full code GI PPx: on therapeutic pantoprazole DVT PPx: SCDs
[2019-11-20] MEDS ORDERED: Pantoprazole 80 MG, Admixture Fee 1 EACH in Sodium Chloride 0.9% 100 ML IVPB SCH (10:30)
[2019-11-20 11:09] LABS: Hemoglobin 4.8 g/dL (12.0-16.0)
[2019-11-20 13:26] LABS: Bacteria/HPF 4+ HPF (None Seen); Bilirubin Negative (Negative); Blood, Urine Negative (Negative); Clarity Turbid (Clear); Glucose, Urine (Dipstick) Normal (Negative); Ketone, Urine Negative (Negative); Leukocyte 250 Leu/uL (Negative); Nitrite Negative (Negative); Protein, Urine (Dipstick) Negative (Neg-Trace); RBC/HPF 0-3 HPF (0-3); Specific Gravity, Urine 1.017 (1.002-1.036); Squamous Epithelial 0-3 HPF (0-3); Urobilinogen Normal mg/dL (Less than 2); pH, Urine 5.5 (5.0-9.0)
[2019-11-20] MEDS: Sodium Chloride 0.9% 1,000 ML IV SCH (15:18)
[2019-11-20 17:02] VITALS: BMI 37.9
[2019-11-20] MEDS ORDERED: Albuterol 200 PUFF (6.7GM INHALER) INH PRN (17:27)
[2019-11-20] MEDS: Atorvastatin Calcium 40 MG TAB PO SCH (20:29)
[2019-11-20] MEDS: Pantoprazole 40 MG VIAL IVP SCH (20:29)
[2019-11-20 23:14] LABS: Hemoglobin 6.6 g/dL (12.0-16.0)
--- NOTE | 2019-11-21 00:50 | CON ---
DATE OF CONSULTATION: REASON FOR CONSULT: Melena, recurrent GI bleed. CONSULTING PHYSICIAN: Georges Pope MD HISTORY OF PRESENT ILLNESS: Ms. Gilman is a 79-year-old, who has had previous episodes of GI bleeding with melena in September. She was discharged to rehab from this hospital on 10/19. She had an EGD on 10/15, at which time, she had small gastric ulcers/erosions. Biopsy on 10/14 showed gastropathy. No H pylori. Endoscopy showed two small 1 to 2 mm ulcerations in the gastric antrum. Mild duodenitis. She had upper endoscopy again on the with similar findings, downtrending hemoglobin. Previously, she has had colonoscopies a year ago in [place] or less than a year ago and 3 years ago here where some significantly small adenomas were removed. It seems she is on chronic anticoagulation with warfarin, aspirin and Plavix. When she was discharged on 10/11, her hemoglobin was 7.4. At [facility], her hemoglobin dropped to 6, but then returned to 7.5 in early October 6.7 on 11/07. She was transfused 2 units of blood, last transfused 2 units of blood on 10/07 and 10/08. Her MCV has been normal. BUN and creatinine are mildly chronically elevated and then she has had a good albumin 4.2 and 3.6 on the in this admission, respectively with a total protein of 8.5. No evidence of globulin gap. Normal white count, normal platelet count. In talking with the patient just over the weekend, she began to feel weak again. She had black stools on Wednesday. She has had none since. When she was brought to the emergency room by her daughter for weakness, her hemoglobin was 4.9 in this morning. She has had no further bleeding. A followup blood count was 4.8 and 11. She is receiving 2 units of blood. She has had no bowel movements. REVIEW OF SYSTEMS: She has just mild nausea. Denies abdominal pain. Denies weight loss. Denies change in appetite. Her stools are brown since discharge until this time. She has shortness of breath and has dyspnea on exertion and fatigue. She denies any cough, wheezing, or asthma-like symptoms. Other review of systems as per HPI, specifically negative for bruising. Negative for back pain or leg pain. Negative for hematuria. PAST MEDICAL HISTORY: COPD, atrial fibrillation, hypertension, diabetes, hyperlipidemia, coronary artery disease with previous stenting. PAST SURGICAL HISTORY: Bladder stone removal, bilateral total knee replacements, two cardiac stents placed a year ago. Endoscopy as described above. FAMILY HISTORY: Negative for colorectal cancer. Positive for CHF. SOCIAL HISTORY: and . Former smoker, stopped 10 years ago. She has three children, one of her daughters is here with her. MEDICATIONS: 1. Presently, she is on albuterol. 2. Xanax p.r.n. 3. Aspirin 81 mg a day. 4. Atorvastatin. 5. Imdur. 6. Lisinopril. 7. Metoprolol. 8. Protonix 40 mg IV q.12. 9. Normal saline at 60. She is receiving blood presently. Home medicines: 1. Warfarin 5 mg daily. 2. Potassium chloride. 3. Protonix 40 mg daily. 4. She states she is taking lisinopril 20 mg daily. 5. Isosorbide mononitrate 30 mg daily. 6. Metoprolol 50 mg b.i.d. 7. Lasix 20 mg a day. 8. Plavix 75 mg a day. 9. Colchicine 1 to 2 capsules daily. 10. Aspirin 81 mg a day. 11. Albuterol. 12. Alprazolam. PHYSICAL EXAMINATION: GENERAL: She is resting comfortably in bed. She is alert and oriented to person, place, and time. She is in no overt distress. Her daughter is at the bedside with her. She is a bit overweight. VITAL SIGNS: Temperature is 98, pulse is 83, blood pressure is 118/68, O2 saturation 95% on room air. LUNGS: Clear. HEART: Regular rate and rhythm without clicks or murmurs. ABDOMEN: Soft and nontender with no rebound or guarding. EXTREMITIES: No clubbing, cyanosis, or edema. RECTAL: Deferred. LABORATORY DATA: Occult blood this admission was negative as it was on 10/07. On admission, white count 9.3, hemoglobin 4.9, repeated at 11 was 4.8, MCV 96, platelet count 236. INR on admission was 4.9, has been 2.2 on the 16th and 1.7 on the 9th. Sodium 145, potassium 4.4, BUN 55, up from baseline of 28, creatinine 1.6. Liver function tests normal. Albumin normal. B12 normal. TSH normal, iron 76, TIBC 386. ASSESSMENT: This is a 79-year-old female, who is on dual antiplatelet therapy and warfarin, who presents with supratherapeutic INR and an episode of melena on Wednesday and interestingly today her stool is heme negative. She has not had a bowel movement since Wednesday. Her hemoglobin has dropped; however, from around 6.5 to 4. She is concerned possibly she has a bone marrow disorder, but she has no signs of a globulin gap. She has normal platelets and white blood cell. It seems that she is having issues of having a supratherapeutic INR. Her recent upper endoscopies in September revealed small erosions unless not even ulcers that were nonbleeding. She had some duodenitis. It is unclear if the bleeding is related to this. All possible Dieulafoy lesion is sent to consider as well. She had a colonoscopy within the last year [place] of state and then here three years ago with some small polyps. It could be that she is having some intermittent small bowel bleeding from arteriovenous malformations or lesions as well. She may have issues with bone marrow dysfunction, but it seems that this was another gastrointestinal bleed, although self-limited. RECOMMENDATIONS: 1. Agree with hospice plan for holding anticoagulation. If she has overt bleeding, she will need to be reversed. Otherwise, give the 2 units of blood. I agree with IV PPI. 2. We will get a CAT enterography in a few days. We will get a CT enterography tomorrow and make sure there are no small or large small bowel lesions. If she has recurrent hemorrhage, it may be reasonable to get a tagged bleeding scan and see if we can see the source. We will follow along with you. Dr. Brasher will follow up tomorrow. Job ID: [id number]
[2019-11-21] MEDS: Sodium Chloride 0.9% 1,000 ML IV SCH (03:56)
[2019-11-21 06:05] LABS: PTT 46.2 sec (22.9-36.1); Prothrombin Time 42.3 sec (12.0-14.7)
[2019-11-21 06:12] LABS: #Eosinphils 0.4 thou/uL (0.0-0.7); #Monocytes 0.8 thou/uL (0.11-0.59); #Neutrophils 6.7 thou/uL (1.40-6.50); %Basophils 0.3 % (0.0-1.0); %Lymphocytes 11.4 % (21.0-51.0); %Monocytes 8.7 % (0.0-10.0); %Neutrophils 74.6 % (42.0-75.0); Hemoglobin 7.5 g/dL (12.0-16.0); Mean Corpuscular HGB CONC 32.7 g/dL (32.0-36.0); Mean Corpuscular Hemoglobin 30.4 pg (27.0-31.0); Mean Corpuscular Volume 93.1 fL (78.0-98.0); Mean Platelet Volume 10.1 fL (7.4-10.4); Platelet Count 168 thou/uL (130-400); RBC Distribution Width 15.2 % (11.5-14.5); Red Blood Cell (RBC) Count 2.47 mill/uL (4.20-5.40); White Blood Cell (WBC) Count 8.9 thou/uL (4.8-10.8)
[2019-11-21 06:24] LABS: INR-International Normal Ratio 4.5
[2019-11-21 06:26] LABS: Anion Gap 12 mmol/L (10-20); BUN (Urea Nitrogen) 42 mg/dL (9.8-20.1); Calc. Creatinine Clearance 84 mL/min (70-130); Calcium 8.4 mg/dL (7.8-10.44); Carbon Dioxide 36 mmol/L (23-31); Chloride 103 mmol/L (98-107); Estimated GFR-MDRD 69; Glucose 144 mg/dL (83-110); Potassium 4.5 mmol/L (3.5-5.1); Sodium 146 mmol/L (136-145)
[2019-11-21] MEDS ORDERED: Lisinopril 20 MG TAB PO SCH (09:00)
[2019-11-21] MEDS ORDERED: Pantoprazole 40 MG VIAL IVP SCH (09:00)
[2019-11-21] MEDS: Aspirin 81 mg Enteric Coated Tablet PO SCH (09:25)
[2019-11-21] MEDS: Lisinopril 20 MG TAB PO SCH (09:25)
[2019-11-21] MEDS: Pantoprazole 40 MG VIAL IVP SCH ×2 (09:26→20:44)
[2019-11-21] MEDS: Sodium Chloride 0.45% 1,000 ML IV SCH ×2 (09:28→21:43)
[2019-11-21 10:09] LABS: Hemoglobin 7.7 g/dL (12.0-16.0); Platelet Count 189 thou/uL (130-400)
--- NOTE | 2019-11-21 10:18 | CT ---
CT ABDOMEN AND PELVIS PERFORMED WITH CONTRAST ENHANCEMENT: History: Recurrent anemia, chronic low blood counts, evaluation for GI bleeding. FINDINGS: The lung bases are clear. There is some fatty change of the liver. Spleen, pancreas, and gallbladder regions are all unremarkab le. Right and left adrenal glands and right and left kidneys are normal in size. There is significant per iaortic or mesenteric adenopathy. No bowel wall abnormalities are appreciated. CT OF PELVIS PERFORMED WITH CONTRAST ENHANCEMENT: No evidence of adenopathy, mass or free fluid. Review of the osseous structures show arthritic changes of the spine. IMPRESSION: No acute findings in the abdomen or pelvis. POS: [facility]
[2019-11-21] MEDS ORDERED: Iopamidol-370 76% 500 ML 1 ML ONE (11:48)
[2019-11-21 15:00] LABS: SARS-CoV-2 MS2 Positive; SARS-CoV-2 N Gene Negative; SARS-CoV-2 S Gene Negative; SARS-CoV-2 by NAA Not Detected (NotDetected); SARS-CoV-2 orf1ab Negative
[2019-11-21 16:13] LABS: Hemoglobin 7.9 g/dL (12.0-16.0)
--- NOTE | 2019-11-21 19:01 | PRG ---
DATE OF SERVICE: 11/21/2019 SUBJECTIVE: Ms. Gilman has had no blood in her stool. No abdominal pain or other complaints today. She had a CT scan of the abdomen and pelvis to assess for small bowel bleeding source. OBJECTIVE: VITAL SIGNS: Temperature 98.2, pulse 75, blood pressure 118/71. GENERAL: She is in no acute distress. Alert and oriented x3. LUNGS: Clear to auscultation bilaterally. HEART: Regular rate and rhythm without murmur. ABDOMEN: Soft, nontender, and nondistended. Bowel sounds are present. EXTREMITIES: No lower extremity edema. LABORATORY DATA: Her hemoglobin is 7.9, up from 4.8 yesterday after 3 units transfusion. INR is 4.5 again today, creatinine 0.81, ferritin 20, iron 76, TIBC 386. IMPRESSION: 1. Iron-deficiency anemia. She has had upper endoscopy back in September without an obvious bleeding source identified. Her colonoscopy was last in 2016. Her INR is elevated at 4.5 to 4.9, on aspirin and also on Plavix. She also had a colonoscopy apparently a year ago in [place]. CT scan showed no obvious small-bowel lesion today. 2. Chronic anticoagulation for atrial fibrillation and anti-platelet medication for coronary artery disease, status post stents. RECOMMENDATIONS: 1. She is tolerating a solid diet well now. 2. Her hemoglobin has responded appropriately to transfusion. 3. She can follow up in GI clinic in the next couple of weeks to schedule a capsule endoscopy to assess for small bowel bleeding source. 4. Her INR has been running a bit supratherapeutic. Her warfarin will be adjusted per the primary service. 5. I will sign off for now. Please call if GI can be of assistance. Job ID: [id number]
--- NOTE | 2019-11-21 19:17 | PDOC.HOSPP ---
- Subjective Encounter Date: 11/21/19 Encounter Time: 10:00 Subjective: no overnight events. No additional melenic episodes. This morning, feeling well and has no complaints. Responded well to blood transfusions and HgB remains stable - Objective Vital Signs & Weight: Vital Signs (12 hours) Temp Pulse Resp BP Pulse Ox 11/21/19 15:53 98.2 F 75 16 118/71 95 11/21/19 12:00 98.2 F 80 16 96/63 97 11/21/19 07:33 97.9 F 84 16 134/53 L 96 Weight Weight 200 lb 9.93 oz I&O: 11/20/19 11/21/19 11/22/19 06:59 06:59 06:59 Intake Total 800 245 Balance 800 245 Result Diagrams: 11/21/19 16:01 11/21/19 05:41 Hospitalist ROS - Review of Systems Constitutional: denies: chills, sweats Respiratory: denies: shortness of breath, hemoptysis Cardiovascular: denies: chest pain, palpitations Gastrointestinal: denies: nausea, vomiting, abdominal pain, melena, hematochezia Genitourinary: denies: dysuria, hematuria - Medication Medications: Active Medications Generic Name Dose Route Start Last Admin Trade Name Freq PRN Reason Stop Dose Admin Aspirin 81 mg 11/21/19 09:00 11/21/19 09:25 Aspirin 81 Mg Enteric Coated Tablet PO 81 mg DAILY DUONG Administration Atorvastatin Calcium 40 mg 11/20/19 21:00 11/20/19 20:29 Atorvastatin Calcium 40 Mg Tab PO 40 mg HS DUONG Administration Sodium Chloride 1,000 mls @ 75 mls/hr 11/21/19 08:45 11/21/19 09:28 1/2 Normal Saline IV 1,000 mls .[id number] DUONG Administration Isosorbide Mononitrate 30 mg 11/21/19 09:00 11/21/19 09:25 Isosorbide Mononitrate Er 30 Mg Tab PO 30 mg DAILY DUONG Administration Lisinopril 20 mg 11/21/19 09:00 11/21/19 09:25 Lisinopril 20 Mg Tab PO 20 mg DAILY DUONG Administration Metoprolol Succinate 50 mg 11/20/19 21:00 11/21/19 09:26 Metoprolol Succinate Xl 50 Mg Tab PO 50 mg BID DUONG Administration Pantoprazole Sodium 40 mg 11/20/19 21:00 11/21/19 09:26 Pantoprazole 40 Mg Vial IVP 40 mg Q12HR DUONG Administration - Exam General Appearance: NAD, awake alert Neck: no JVD Heart: RRR, no murmur, no gallops Respiratory: CTAB, no wheezes, no rales Gastrointestinal: soft, non-tender, non-distended Extremities: no edema Psychiatric: normal affect, normal behavior, A&O x 3 Hosp A/P - Plan #UGIB CT abd benign responded well to transfusions; HgB stable; no overt bleeding; GI signed off INR remains supratherapeutic continue to hold warfarin full code ELOS: 1-2 nights
[2019-11-21] MEDS ORDERED: Dextrose 50% Abboject 50 ML SYRINGE SLOW IVP PRN (19:18)
[2019-11-21] MEDS ORDERED: Dextrose 5% in Water 1,000 ML IV PRN (19:18)
[2019-11-21] MEDS: Atorvastatin Calcium 40 MG TAB PO SCH (20:44)
[2019-11-22 06:14] LABS: #Eosinphils 0.5 thou/uL (0.0-0.7); #Monocytes 0.8 thou/uL (0.11-0.59); #Neutrophils 6.3 thou/uL (1.40-6.50); %Basophils 0.3 % (0.0-1.0); %Eosinophils 5.3 % (0.0-10.0); %Lymphocytes 11.7 % (21.0-51.0); %Monocytes 9.3 % (0.0-10.0); %Neutrophils 73.4 % (42.0-75.0); Hemoglobin 6.8 g/dL (12.0-16.0); Mean Corpuscular HGB CONC 32.7 g/dL (32.0-36.0); Mean Corpuscular Hemoglobin 30.7 pg (27.0-31.0); Mean Platelet Volume 10.5 fL (7.4-10.4); Platelet Count 180 thou/uL (130-400); RBC Distribution Width 15.4 % (11.5-14.5); Red Blood Cell (RBC) Count 2.21 mill/uL (4.20-5.40); White Blood Cell (WBC) Count 8.6 thou/uL (4.8-10.8)
[2019-11-22 06:18] LABS: PTT 59.5 sec (22.9-36.1); Prothrombin Time 44.1 sec (12.0-14.7)
[2019-11-22 06:23] LABS: INR-International Normal Ratio 4.7
[2019-11-22 06:32] LABS: Anion Gap 10 mmol/L (10-20); BUN (Urea Nitrogen) 36 mg/dL (9.8-20.1); Calc. Creatinine Clearance 82 mL/min (70-130); Calcium 8.4 mg/dL (7.8-10.44); Carbon Dioxide 36 mmol/L (23-31); Chloride 99 mmol/L (98-107); Estimated GFR-MDRD 67; Glucose 136 mg/dL (83-110); Potassium 4.7 mmol/L (3.5-5.1); Sodium 140 mmol/L (136-145)
[2019-11-22] MEDS: Aspirin 81 mg Enteric Coated Tablet PO SCH (08:53)
[2019-11-22] MEDS: Pantoprazole 40 MG VIAL IVP SCH ×2 (08:54→20:38)
[2019-11-22] MEDS: Lisinopril 20 MG TAB PO SCH (08:54)
[2019-11-22 13:20] LABS: Hemoglobin 7.8 g/dL (12.0-16.0)
--- NOTE | 2019-11-22 19:19 | PDOC.HOSPP ---
- Subjective Encounter Date: 11/22/19 Encounter Time: 10:00 Subjective: no overnight events. this morning, complains of being tired, as she was yesterday, but has no other complaints. - Objective Vital Signs & Weight: Vital Signs (12 hours) Temp Pulse Resp BP BP BP Pulse Ox 11/22/19 15:58 98.4 F 81 16 103/63 100 11/22/19 11:53 98.2 F 81 17 115/70 100 11/22/19 08:59 98.4 F 76 16 117/71 100 11/22/19 07:25 98.4 F 84 16 96/61 100 Weight Weight 200 lb 9.93 oz I&O: 11/21/19 11/22/19 11/23/19 06:59 06:59 06:59 Intake Total 800 245 350 Balance 800 245 350 Result Diagrams: 11/22/19 12:59 11/22/19 05:50 Additional Labs: Accuchecks 11/22/19 11/22/19 11/22/19 16:05 12:05 05:50 POC Glucose 146 H 130 H 125 H 11/21/19 19:56 POC Glucose 150 H Hospitalist ROS - Review of Systems Constitutional: denies: chills, sweats Respiratory: denies: cough, shortness of breath Cardiovascular: denies: chest pain, palpitations, orthopnea Gastrointestinal: denies: nausea, vomiting, abdominal pain Genitourinary: denies: dysuria, hematuria Musculoskeletal: denies: neck pain - Medication Medications: Active Medications Generic Name Dose Route Start Last Admin Trade Name Freq PRN Reason Stop Dose Admin Aspirin 81 mg 11/21/19 09:00 11/22/19 08:53 Aspirin 81 Mg Enteric Coated Tablet PO 81 mg DAILY DUONG Administration Atorvastatin Calcium 40 mg 11/20/19 21:00 11/21/19 20:44 Atorvastatin Calcium 40 Mg Tab PO 40 mg HS DUONG Administration Isosorbide Mononitrate 30 mg 11/21/19 09:00 11/22/19 08:53 Isosorbide Mononitrate Er 30 Mg Tab PO 30 mg DAILY DUONG Administration Lisinopril 20 mg 11/21/19 09:00 11/22/19 08:54 Lisinopril 20 Mg Tab PO Not Given DAILY [facility] Metoprolol Succinate 50 mg 11/20/19 21:00 11/22/19 08:54 Metoprolol Succinate Xl 50 Mg Tab PO Not Given BID DUONG Pantoprazole Sodium 40 mg 11/20/19 21:00 11/22/19 08:54 Pantoprazole 40 Mg Vial IVP 40 mg Q12HR DUONG Administration - Exam General Appearance: NAD, awake alert Neck: no JVD Heart: no murmur, no gallops, no rubs, irregular Respiratory: CTAB, no wheezes, no rales, no ronchi Gastrointestinal: soft, non-tender, non-distended, normal bowel sounds Psychiatric: normal affect, normal behavior, A&O x 3 Hosp A/P - Plan #UGIB CT abd benign this morning, HgB 6.8; likely related to hemodilution; no additoinal bowel movement INR remains supratherapeutic; PTT elevation likely due to supratherapeutic warfarin as well transfuse 1 x PRBC if bleeds, give vitamin K and FFP continue to hold warfarin full code ELOS: 2 nights
[2019-11-22] MEDS: Atorvastatin Calcium 40 MG TAB PO SCH (20:39)
[2019-11-23 05:56] LABS: #Eosinphils 0.3 thou/uL (0.0-0.7); #Lymphocytes 0.8 thou/uL (1.20-3.40); #Monocytes 0.7 thou/uL (0.11-0.59); #Neutrophils 5.9 thou/uL (1.40-6.50); %Basophils 0.4 % (0.0-1.0); %Eosinophils 4.3 % (0.0-10.0); %Lymphocytes 10.6 % (21.0-51.0); %Monocytes 9.4 % (0.0-10.0); %Neutrophils 75.4 % (42.0-75.0); Hemoglobin 7.1 g/dL (12.0-16.0); Mean Corpuscular HGB CONC 32.9 g/dL (32.0-36.0); Mean Corpuscular Hemoglobin 30.5 pg (27.0-31.0); Mean Corpuscular Volume 92.7 fL (78.0-98.0); Mean Platelet Volume 10.7 fL (7.4-10.4); Platelet Count 174 thou/uL (130-400); RBC Distribution Width 14.5 % (11.5-14.5); Red Blood Cell (RBC) Count 2.32 mill/uL (4.20-5.40); White Blood Cell (WBC) Count 7.8 thou/uL (4.8-10.8)
[2019-11-23 05:59] LABS: INR-International Normal Ratio 2.2; PTT 44.2 sec (22.9-36.1); Prothrombin Time 24.9 sec (12.0-14.7)
[2019-11-23 06:14] LABS: Anion Gap 12 mmol/L (10-20); BUN (Urea Nitrogen) 30 mg/dL (9.8-20.1); Calc. Creatinine Clearance 77 mL/min (70-130); Calcium 8.5 mg/dL (7.8-10.44); Carbon Dioxide 35 mmol/L (23-31); Chloride 100 mmol/L (98-107); Estimated GFR-MDRD 62; Glucose 132 mg/dL (83-110); Potassium 4.9 mmol/L (3.5-5.1); Sodium 142 mmol/L (136-145)
[2019-11-23] MEDS ORDERED: Sodium Chloride 0.9% 1,000 ML IV SCH (08:00)
[2019-11-23] MEDS: Lisinopril 20 MG TAB PO SCH (09:12)
[2019-11-23] MEDS: Pantoprazole 40 MG VIAL IVP SCH ×2 (09:12→21:26)
[2019-11-23] MEDS: Aspirin 81 mg Enteric Coated Tablet PO SCH (09:13)
[2019-11-23] MEDS: Ferrous Sulfate 325 MG TAB PO SCH ×3 (09:13→21:25)
[2019-11-23] MEDS ORDERED: Lisinopril 10 MG TAB PO SCH (09:30)
--- NOTE | 2019-11-23 10:49 | PDOC.HOSPP ---
- Subjective Encounter Date: 11/23/19 Encounter Time: 09:00 Subjective: no overnight events. this morning, confused, trembling in all four extremities, stuttering. Resolved spontaneously during meal. Feeling well and has no complaints. Refused Bipap overnight, can't explain why. Daughter at bedside explained current issues and plan. Requested that patient be assessed for SNF. - Objective Vital Signs & Weight: Vital Signs (12 hours) Temp Pulse BP BP Pulse Ox 11/23/19 09:12 127/78 11/23/19 07:36 98.0 F 96 129/72 95 11/23/19 05:35 100 Weight Weight 200 lb 9.93 oz I&O: 11/22/19 11/23/19 11/24/19 06:59 06:59 06:59 Intake Total 245 350 Balance 245 350 Result Diagrams: 11/23/19 11:58 11/23/19 05:34 Additional Labs: Accuchecks 11/23/19 11/23/19 11/22/19 09:10 05:55 20:41 POC Glucose 147 H 127 H 167 H 11/22/19 11/22/19 16:05 12:05 POC Glucose 146 H 130 H Hospitalist ROS - Review of Systems Constitutional: reports: weakness. denies: fever, chills, sweats Eyes: denies: vision change Respiratory: denies: cough, shortness of breath, pleuritic pain Cardiovascular: denies: chest pain, palpitations, orthopnea, paroxysmal noc. dyspnea, edema Gastrointestinal: denies: nausea, vomiting, abdominal pain, diarrhea Genitourinary: denies: dysuria, frequency, incontinence, hematuria Neurological: denies: weakness, change in speech, seizures - Medication Medications: Active Medications Generic Name Dose Route Start Last Admin Trade Name Freq PRN Reason Stop Dose Admin Aspirin 81 mg 11/21/19 09:00 11/23/19 09:13 Aspirin 81 Mg Enteric Coated Tablet PO 81 mg DAILY DUONG Administration Atorvastatin Calcium 40 mg 11/20/19 21:00 11/22/19 20:39 Atorvastatin Calcium 40 Mg Tab PO 40 mg HS DUONG Administration Ferrous Sulfate 325 mg 11/23/19 09:00 11/23/19 09:13 Ferrous Sulfate 325 Mg Tab PO 325 mg TID DUONG Administration Sodium Chloride 1,000 mls @ 60 mls/hr 11/23/19 08:00 11/23/19 09:14 Normal Saline 0.9% IV 1,000 mls .[id number] DUONG Administration Isosorbide Mononitrate 30 mg 11/21/19 09:00 11/23/19 09:13 Isosorbide Mononitrate Er 30 Mg Tab PO 30 mg DAILY DUONG Administration Metoprolol Succinate 50 mg 11/20/19 21:00 11/23/19 09:13 Metoprolol Succinate Xl 50 Mg Tab PO 50 mg BID DUONG Administration Pantoprazole Sodium 40 mg 11/20/19 21:00 11/23/19 09:12 Pantoprazole 40 Mg Vial IVP 40 mg Q12HR DUONG Administration - Exam General Appearance: NAD, awake alert Eye - other findings: pal conjunctivae Neck: no JVD Heart: RRR, no gallops Respiratory: CTAB, no wheezes, no rales, no ronchi Gastrointestinal: soft, non-tender, non-distended, normal bowel sounds Extremities: 1+ LE edema Psychiatric: normal affect, normal behavior, A&O x 3 Hosp A/P - Plan #UGIB CT abd benign RBC stable, no additional bleeding episodes since admission INR 2.2; restarting warfarin with pharm dosing if bleeds, give vitamin K and FFP continue to hold warfarin full code #constipation started bowel regimen #derlirium no focal findings may be due to relative hypoglycemia since lower PO intake over the past day, hypercapnic due to refusing CPAP HS will continue to follow ELOS: 2 nights; pending evaluation by inpt rehab
[2019-11-23 12:11] LABS: Hemoglobin 6.6 g/dL (12.0-16.0); Platelet Count 154 thou/uL (130-400)
[2019-11-23] MEDS: Bisacodyl 10 MG SUPP PR SCH ×2 (16:13→21:25)
[2019-11-23] MEDS: Warfarin Sodium 2.5 MG TAB PO SCH (16:50)
[2019-11-23 18:16] LABS: #Eosinphils 0.3 thou/uL (0.0-0.7); #Monocytes 0.9 thou/uL (0.11-0.59); #Neutrophils 5.8 thou/uL (1.40-6.50); %Basophils 0.3 % (0.0-1.0); %Eosinophils 4.2 % (0.0-10.0); %Lymphocytes 12.5 % (21.0-51.0); %Monocytes 10.8 % (0.0-10.0); %Neutrophils 72.1 % (42.0-75.0); Hemoglobin 8.4 g/dL (12.0-16.0); Mean Corpuscular HGB CONC 32.9 g/dL (32.0-36.0); Mean Corpuscular Hemoglobin 30.8 pg (27.0-31.0); Mean Corpuscular Volume 93.5 fL (78.0-98.0); Mean Platelet Volume 10.7 fL (7.4-10.4); Platelet Count 198 thou/uL (130-400); RBC Distribution Width 14.7 % (11.5-14.5); Red Blood Cell (RBC) Count 2.74 mill/uL (4.20-5.40)
[2019-11-23] MEDS: Atorvastatin Calcium 40 MG TAB PO SCH (21:25)
[2019-11-24 05:25] LABS: #Eosinphils 0.4 thou/uL (0.0-0.7); #Lymphocytes 0.8 thou/uL (1.20-3.40); #Monocytes 0.9 thou/uL (0.11-0.59); #Neutrophils 6.3 thou/uL (1.40-6.50); %Basophils 0.5 % (0.0-1.0); %Eosinophils 4.6 % (0.0-10.0); %Lymphocytes 9.5 % (21.0-51.0); %Monocytes 10.4 % (0.0-10.0); %Neutrophils 74.9 % (42.0-75.0); Hemoglobin 8.5 g/dL (12.0-16.0); Mean Corpuscular HGB CONC 33.1 g/dL (32.0-36.0); Mean Corpuscular Hemoglobin 31.3 pg (27.0-31.0); Mean Corpuscular Volume 94.4 fL (78.0-98.0); Mean Platelet Volume 10.4 fL (7.4-10.4); Platelet Count 173 thou/uL (130-400); RBC Distribution Width 15.1 % (11.5-14.5); White Blood Cell (WBC) Count 8.4 thou/uL (4.8-10.8)
[2019-11-24 05:28] LABS: INR-International Normal Ratio 1.4; Prothrombin Time 17.3 sec (12.0-14.7)
[2019-11-24 05:29] LABS: PTT 36.4 sec (22.9-36.1)
[2019-11-24 05:46] LABS: BUN (Urea Nitrogen) 25 mg/dL (9.8-20.1); Calc. Creatinine Clearance 68 mL/min (70-130); Calcium 8.6 mg/dL (7.8-10.44); Estimated GFR-MDRD 54; Glucose 128 mg/dL (83-110)
[2019-11-24] MEDS: Bisacodyl 10 MG SUPP PR SCH ×3 (05:50→21:02)
[2019-11-24 05:54] LABS: Anion Gap 14 mmol/L (10-20); Carbon Dioxide 34 mmol/L (23-31); Chloride 100 mmol/L (98-107); Potassium 4.9 mmol/L (3.5-5.1); Sodium 143 mmol/L (136-145)
[2019-11-24] MEDS ORDERED: hydrALAZINE 20 MG/ML VIAL SLOW IVP PRN (08:49)
--- NOTE | 2019-11-24 09:09 | RAD ---
CHEST 1 VIEW: HISTORY: Wheezing with chest pain. COMPARISON: Radiograph 11/20/2019. FINDINGS: Heart size is enlarged. Small effusions. Mild pulmonary venous congestion. IMPRESSION: New mild pulmonary venous congestion and concern for early edema. POS: [facility]
--- NOTE | 2019-11-24 09:41 | CT ---
CT BRAIN WITHOUT CONTRAST: HISTORY: Dysarthria, confusion COMPARISON: 06/14/2011 FINDINGS: No evidence of acute infarct, hemorrhage, midline shift or abnormal extra-axial fluid collections is seen. The ventricular size is appropriate and the basilar cisterns are patent. The bony calvarium is intact. The mastoid air cells are well aerated. There is mucosal disease in the left sphenoid sinu s. IMPRESSION: No CT evidence of acute intracranial process.
[2019-11-24] MEDS: Ferrous Sulfate 325 MG TAB PO SCH ×3 (11:31→21:01)
[2019-11-24] MEDS: Lisinopril 10 MG TAB PO SCH (11:34)
[2019-11-24] MEDS: Clopidogrel Bisulfate 75 MG TAB PO SCH (12:47)
[2019-11-24] MEDS: Pantoprazole 40 MG VIAL IVP SCH ×2 (12:47→21:02)
--- NOTE | 2019-11-24 14:23 | PDOC.HOSPP ---
- Subjective Encounter Date: 11/24/19 Encounter Time: 08:00 Subjective: overnight, used NIV only half the night because not comfortable. 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 Daughter at bedside informed this may be due to hypercapnia that improves once patient wakes up and ventilates, therefore resolves. Patient requested small NIV mask for better fit - Objective Vital Signs & Weight: Vital Signs (12 hours) Temp Pulse Resp BP BP BP Pulse Ox 11/24/19 11:34 148/67 H 11/24/19 11:00 98.1 F 83 18 133/70 99 11/24/19 07:59 98.3 F 88 20 150/63 H 99 Weight Weight 200 lb 9.93 oz I&O: 11/23/19 11/24/19 11/25/19 06:59 06:59 06:59 Intake Total 350 350 Balance 350 350 Result Diagrams: 11/24/19 05:10 11/24/19 05:10 Additional Labs: Accuchecks 11/24/19 11/24/19 11/24/19 11:08 08:39 04:26 POC Glucose 111 H 127 H 119 H 11/23/19 11/23/19 19:31 15:53 POC Glucose 146 H 131 H Hospitalist ROS - Review of Systems Constitutional: denies: chills, sweats Respiratory: denies: cough, shortness of breath, pleuritic pain Cardiovascular: denies: chest pain, palpitations Gastrointestinal: denies: vomiting, abdominal pain, diarrhea, constipation, melena, hematochezia Genitourinary: denies: dysuria, frequency, hematuria - Medication Medications: Active Medications Generic Name Dose Route Start Last Admin Trade Name Freq PRN Reason Stop Dose Admin Atorvastatin Calcium 40 mg 11/20/19 21:00 11/23/19 21:25 Atorvastatin Calcium 40 Mg Tab PO 40 mg HS DUONG Administration Bisacodyl 10 mg 11/23/19 14:00 11/24/19 05:50 Bisacodyl 10 Mg Supp VT Not Given Q8HR DUONG Clopidogrel Bisulfate 75 mg 11/24/19 09:00 11/24/19 12:47 Clopidogrel Bisulfate 75 Mg Tab PO 75 mg DAILY DUONG Administration Ferrous Sulfate 325 mg 11/23/19 09:00 11/24/19 11:31 Ferrous Sulfate 325 Mg Tab PO 325 mg TID DUONG Administration Isosorbide Mononitrate 30 mg 11/21/19 09:00 11/24/19 11:31 Isosorbide Mononitrate Er 30 Mg Tab PO 30 mg DAILY DUONG Administration Lisinopril 10 mg 11/24/19 09:00 11/24/19 11:34 Lisinopril 10 Mg Tab PO 10 mg DAILY DUONG Administration Metoprolol Succinate 50 mg 11/20/19 21:00 11/24/19 11:34 Metoprolol Succinate Xl 50 Mg Tab PO 50 mg BID DUONG Administration Pantoprazole Sodium 40 mg 11/20/19 21:00 11/24/19 12:47 Pantoprazole 40 Mg Vial IVP 40 mg Q12HR DUONG Administration Sodium Chloride 10 ml 11/23/19 21:00 11/24/19 11:42 Flush - Normal Saline 10 Ml Syringe IVF 10 ml Q12HR DUONG Administration Warfarin Sodium 2.5 mg 11/23/19 17:00 11/23/19 16:50 Warfarin Sodium 2.5 Mg Tab PO 2.5 mg 1700 DUONG Administration - Exam General Appearance: NAD, awake alert General - other findings: initially confused, stuttering; resolved within 2-3 minutes Neck: no JVD Heart: RRR, no murmur, no gallops, no rubs Respiratory: CTAB, no wheezes, no ronchi Respiratory - other findings: bibasilar rales Extremities: 1+ LE edema Extremities - other findings: b/l pitting equal to knee level Neurological: cranial nerve grossly intact, no focal deficits. negative: facial droop, hemiplegia, speech deficit (stuttered for about a minute, then resolved) Psychiatric: normal affect, normal behavior, A&O x 3 Hosp A/P - Plan #UGIB (resolved) HgB responded to tranfusion, stable, no additional bowel movements since admission INR 1.4; daily H&H continue PPI warfarin per pharmacy dosing stopped aspirin and started plavix in preparation #constipation started bowel regimen #hypercarbia induced delirium #OHS occurred every morning in the past 3 days, resolved spontaneously within minutes of waking up CT head noncontributory not suspecting infection at this time requested to attempt to provide smaller mask to patient will continue to follow if despite using NIV at night continues to have delirium, further workup may be indicated ELOS: 2 nights; pending evaluation by inpt rehab
[2019-11-24] MEDS ORDERED: Torsemide 20 MG TAB PO SCH (15:15)
[2019-11-24] MEDS ORDERED: Lorazepam 2 MG/ML VIAL SLOW IVP PRN (16:38)
--- NOTE | 2019-11-24 16:49 | PDOC.EVN ---
Event Note - Event Note Event Note: had multiple episodes of midday confusion today. On encounter, stuttering, confused, and flapping feet. Per nurse, episodes at times correlated to moving from supine to erect position. Transfered to stroke unit. Consulted neurology for possible focal/subclinical seizure. Even though denied urinary tract infection symptoms previously, started ceftriaxone based on previous UA after repeating urinalysis with reflex. orthostats, Blood culture, VBG, trop, and ekg ordered.
[2019-11-24] MEDS: cefTRIAXone\\ROCEPHIN 1 GM in Sodium Chloride 0.9% 100 ML IVPB SCH (17:09)
[2019-11-24] MEDS: Warfarin Sodium 2.5 MG TAB PO SCH (17:10)
[2019-11-24 20:22] LABS: Bilirubin Negative (Negative); Blood, Urine Negative (Negative); Clarity Clear (Clear); Glucose, Urine (Dipstick) Normal (Negative); Ketone, Urine Negative (Negative); Leukocyte Negative Leu/uL (Negative); Nitrite Negative (Negative); Protein, Urine (Dipstick) Negative (Neg-Trace); RBC/HPF 0-3 HPF (0-3); Specific Gravity, Urine 1.007 (1.002-1.036); Squamous Epithelial 0-3 HPF (0-3); Urobilinogen Normal mg/dL (Less than 2); WBC/HPF 0-3 HPF (0-3)
[2019-11-24 20:29] LABS: Bacteria/HPF Rare-Few HPF (None Seen)
[2019-11-24 20:31] LABS: Urine Culture Reflex No No
[2019-11-24 20:48] LABS: Base Excess 16.2 mEq/L (-2.0 to +3.0); Calcium, Ionized (venous) 1.17 mmol/L (1.16-1.32); Chloride (ABG LAB) 94 mmol/L (98-106); Hemoglobin (Hb) 9.7 g/dL (11.7-16.1); Potassium - ABG Lab 4.64 mmol/L (3.70-5.30); Sodium 137.1 mmol/L (133-146)
[2019-11-24 21:00] LABS: Actual Bicarbonate (HCO3v) 46 mEq/L (22-28)
[2019-11-24] MEDS: Atorvastatin Calcium 40 MG TAB PO SCH (21:01)
[2019-11-25] MEDS: ALPRAZolam 0.5 MG TAB PO PRN ×2 (01:25→16:02)
[2019-11-25 05:57] LABS: #Eosinphils 0.3 thou/uL (0.0-0.7); #Lymphocytes 0.7 thou/uL (1.20-3.40); #Monocytes 0.9 thou/uL (0.11-0.59); #Neutrophils 6.7 thou/uL (1.40-6.50); %Basophils 0.5 % (0.0-1.0); %Eosinophils 3.7 % (0.0-10.0); %Lymphocytes 7.9 % (21.0-51.0); %Neutrophils 77.8 % (42.0-75.0); Hemoglobin 8.7 g/dL (12.0-16.0); Mean Corpuscular HGB CONC 32.6 g/dL (32.0-36.0); Mean Platelet Volume 10.5 fL (7.4-10.4); Platelet Count 187 thou/uL (130-400); RBC Distribution Width 14.9 % (11.5-14.5); Red Blood Cell (RBC) Count 2.82 mill/uL (4.20-5.40); White Blood Cell (WBC) Count 8.6 thou/uL (4.8-10.8)
[2019-11-25 06:01] LABS: INR-International Normal Ratio 1.3; Prothrombin Time 16.5 sec (12.0-14.7)
[2019-11-25] MEDS: Bisacodyl 10 MG SUPP PR SCH ×2 (06:01→14:34)
[2019-11-25 06:12] LABS: ALT (SGPT) 7 U/L (8-55); AST (SGOT) 18 U/L (5-34); Albumin 3.5 g/dL (3.4-4.8); Alkaline Phosphatase 62 U/L (40-110); Anion Gap 15 mmol/L (10-20); BUN (Urea Nitrogen) 23 mg/dL (9.8-20.1); Bilirubin, Total 0.9 mg/dL (0.2-1.2); Calc. Creatinine Clearance 69 mL/min (70-130); Calcium 8.9 mg/dL (7.8-10.44); Carbon Dioxide 37 mmol/L (23-31); Chloride 94 mmol/L (98-107); Estimated GFR-MDRD 55; Globulin 2.3 g/dL (2.4-3.5); Glucose 139 mg/dL (83-110); Magnesium 1.4 mg/dL (1.6-2.6); Potassium 4.7 mmol/L (3.5-5.1); Protein, Total 5.8 g/dL (6.0-8.3); Sodium 141 mmol/L (136-145)
[2019-11-25 07:03] LABS: Actual Bicarbonate (HCO3a) 43.2 mEq/L (22-28); Base Excess (BEa) 15.8 mEq/L (-2.0 to +3.0); Calcium, Ionized (arterial) 1.14 mmol/L (1.12-1.30); Carboxyhemoglobin (COHb) 1.3 gm% (0.0-3.0); Hemoglobin (Hb) 8.8 g/dL (12.0-16.0); O2 Tension (PaO2), arterial 67.9 mmHg (> 70.0); Potassium - ABG Lab 4.32 mmol/L (3.70-5.30); pH, Arterial 7.38 (7.35-7.45)
[2019-11-25 07:15] LABS: CO2 Tension 75.1 mmHg (35.0-45.0)
[2019-11-25 07:16] LABS: ALV-art Gradient 37.865 mmHg (0-20); Puncture Site RRA
[2019-11-25] MEDS ORDERED: Magnesium 2 GM/50 ML 2 GM in Premix Bag 1 BAG IVPB SCH (08:45)
[2019-11-25] MEDS: Lisinopril 10 MG TAB PO SCH (08:47)
[2019-11-25] MEDS: Ferrous Sulfate 325 MG TAB PO SCH ×3 (08:48→21:16)
[2019-11-25] MEDS: Clopidogrel Bisulfate 75 MG TAB PO SCH (08:48)
[2019-11-25] MEDS: Pantoprazole 40 MG VIAL IVP SCH (08:48)
--- NOTE | 2019-11-25 11:13 | EEG ---
DATE OF SERVICE: 11/25/2019 ATTENDING PHYSICIAN: Maryjane Costa MD This EEG was performed using 24-channel [employer] video digital EEG machine with 24- disk electrodes. This was a routine EEG recording. BACKGROUND: The posterior background rhythm was not observed. HYPERVENTILATION: Not performed. PHOTIC STIMULATION: Not performed. SLEEP: No stage change was observed. SPELLS: Patient was confused during the entire recording with shaking episodes which were not associated with abnormal EEG correlate. EEG DIAGNOSES: 1. Generalized irregular theta-delta activity, at times sharply contoured, seen throughout the recording. 2. Absence of posterior background rhythm. CLINICAL INTERPRETATION: This EEG is consistent with moderate generalized nonspecific cerebral dysfunction. Job ID: [id number] [facility]
--- NOTE | 2019-11-25 13:30 | CON ---
NEUROLOGY CONSULTATION DATE OF CONSULTATION: 11/25/2019 REASON FOR CONSULTATION: Altered mental status/spells of unclear etiology. HISTORY: This is a 79-year-old female with medical history significant for atrial fibrillation, coronary artery disease status post stent placement, gastric cancer, presented with generalized weakness and melena on 11/12/2019. During this inpatient stay, the patient required multiple blood transfusions due to anemia and the EGD showed small gastric ulcers. She was discharged to rehab. In rehab, she did well and the INR was controlled. She was again discharged home on ; however, since then, she has generalized weakness and so the family decided to bring her back again on 11/20/2019 for further evaluation; however, during this hospital stay, she has multiple episodes of confusion, characterized by slurred speech, confusion, and flapping tremors of the hands and the feet, which resolved on its own. There was a concern about seizure activity, so Neurology was consulted for further evaluation. Per daughter, she has ongoing confusion; however, the shakiness comes and goes several times during the day. The daughter denies any focal jerking, tongue bite or urinary incontinence associated during these episodes. REVIEW OF SYSTEMS: Unobtainable due to the patient's mental status. PAST MEDICAL HISTORY: Atrial fibrillation, COPD, hypertension, diabetes mellitus, hyperlipidemia, coronary artery disease, and osteoarthritis. PAST SURGICAL HISTORY: Bladder stone removal, bilateral total knee replacement, status post stent placement a year ago. PAST SURGICAL HISTORY: Bladder stone removal and bilateral total knee replacement in 2019. FAMILY HISTORY: Significant for cancer, diabetes, and congestive heart failure. SOCIAL HISTORY: , but . She is a former smoker. She quit smoking 10 years ago. She has 3 children. ALLERGIES: Codeine Vital Signs & Weight: Vital Signs (12 hours) Temp Pulse Resp BP BP BP Pulse Ox 11/24/19 11:34 148/67 H 11/24/19 11:00 98.1 F 83 18 133/70 99 11/24/19 07:59 98.3 F 88 20 150/63 H 99 Weight Weight 200 lb 9.93 oz I&O: 11/23/19 11/24/19 11/25/19 06:59 06:59 06:59 Intake Total 350 350 Balance 350 350 Additional Labs: Accuchecks 11/24/19 11/24/19 11/24/19 11:08 08:39 04:26 POC Glucose 111 H 127 H 119 H 11/23/19 11/23/19 19:31 15:53 POC Glucose 146 H 131 H : Active Medications Generic Name Dose Route Start Last Admin Trade Name Zacharyq PRN Reason Stop Dose Admin Atorvastatin Calcium 40 mg 11/20/19 21:00 11/23/19 21:25 Atorvastatin Calcium 40 Mg Tab PO 40 mg HS DUONG Administration Bisacodyl 10 mg 11/23/19 14:00 11/24/19 05:50 Bisacodyl 10 Mg Supp [place] Not Given Q8HR [facility] Clopidogrel Bisulfate 75 mg 11/24/19 09:00 11/24/19 12:47 Clopidogrel Bisulfate 75 Mg Tab PO 75 mg DAILY DUONG Administration Ferrous Sulfate 325 mg 11/23/19 09:00 11/24/19 11:31 Ferrous Sulfate 325 Mg Tab PO 325 mg TID DUONG Administration Isosorbide Mononitrate 30 mg 11/21/19 09:00 11/24/19 11:31 Isosorbide Mononitrate Er 30 Mg Tab PO 30 mg DAILY DUONG Administration Lisinopril 10 mg 11/24/19 09:00 11/24/19 11:34 Lisinopril 10 Mg Tab PO 10 mg DAILY DUONG Administration Metoprolol Succinate 50 mg 11/20/19 21:00 11/24/19 11:34 Metoprolol Succinate Xl 50 Mg Tab PO 50 mg BID DUONG Administration Pantoprazole Sodium 40 mg 11/20/19 21:00 11/24/19 12:47 Pantoprazole 40 Mg Vial IVP 40 mg Q12HR DUONG Administration Sodium Chloride 10 ml 11/23/19 21:00 11/24/19 11:42 Flush - Normal Saline 10 Ml Syringe IVF 10 ml Q12HR DUONG Administration Warfarin Sodium 2.5 mg 11/23/19 17:00 11/23/19 16:50 Warfarin Sodium 2.5 Mg Tab PO 2.5 mg 1700 DUONG Administration - Exam General Appearance: NAD, awake alert General - other findings: initially confused, stuttering; resolved within 2-3 minutes Neck: no JVD Heart: RRR, no murmur, no gallops, no rubs Respiratory: CTAB, no wheezes, no ronchi Respiratory - other findings: bibasilar rales Extremities: 1+ LE edema Extremities - other findings: b/l pitting equal to knee level Neurological: : Mental status; the patient is alert, awake, and is oriented to person only. She does not follow commands or maintain eye contact. Cranial nerves; pupils 4 mm, round, and reactive to light. Face symmetric. Tongue midline. Moves neck in both direction. Hearing seems to be intact. Motor; muscle tone and bulk are normal. Moving all 4 extremities equally and symmetrically. Sensory, withdraws to nailbed pressure bilaterally. Cerebellar, did not cooperate with the testing. Gait deferred due to patient's safety reason. DATA REVIEWED: I reviewed the labs, which were significant for anemia. Head CT did not reveal any acute intracranial process. EEG reviewed and was negative for seizure activity. Lab results: WBC 9.3 thou/uL (4.8-10.8) 11/20/19 08:52 Hgb 4.9 g/dL (12.0-16.0) L* 11/20/19 08:52 Hct 15.7 % (36.0-47.0) L 11/20/19 08:52 MCV 96.8 fL (78.0-98.0) 11/20/19 08:52 Plt Count 236 thou/uL (130-400) 11/20/19 08:52 Neutrophils % 78.1 % (42.0-75.0) H 11/20/19 08:52 Sodium 145 mmol/L (136-145) 11/20/19 08:52 Potassium 4.4 mmol/L (3.5-5.1) 11/20/19 08:52 Chloride 98 mmol/L (98-107) 11/20/19 08:52 Carbon Dioxide 34 mmol/L (23-31) H 11/20/19 08:52 BUN 55 mg/dL (9.8-20.1) H 11/20/19 08:52 Creatinine 1.16 mg/dL (0.6-1.1) H 11/20/19 08:52 Glucose 213 mg/dL (83-110) H 11/20/19 08:52 Calcium 8.7 mg/dL (7.8-10.44) 11/20/19 08:52 Total Bilirubin 0.4 mg/dL (0.2-1.2) 11/20/19 08:52 AST 12 U/L (5-34) 11/20/19 08:52 ALT 8 U/L (8-55) 11/20/19 08:52 Alkaline Phosphatase 58 U/L (40-110) 11/20/19 08:52 Troponin I 0.012 ng/mL (< 0.028) 11/20/19 08:52 Serum Total Protein 5.8 g/dL (6.0-8.3) L 11/20/19 08:52 Albumin 3.6 g/dL (3.4-4.8) 11/20/19 08:52 - EKG Interpretation EKG: no signs of new ischemia or infarct - Radiology Interpretation Chest x-ray Status: image reviewed by me (no acute cardiopulmonary process) ASSESSMENT AND PLAN: Ms. Kaylah Gilman is a 79-year-old female, admitted because of acute symptomatic anemia due to upper gastrointestinal bleed. Neurology consulted for episodes of confusion associated with shakiness with shaking spells, which resolved on its own. The presentation is now seemed typical for seizure. EEG reviewed, which captured several spells associated with confusion and shaking of the upper and lower extremities, not associated with any abnormal EEG correlate, therefore nonepileptic in nature. Altered mental status seems to be multifactorial secondary to metabolic abnormalities and Anemia. Continue neuro checks every 4 hours. Continue medical management per primary team. MRI of the brain to rule out acute intracranial process. Continue home medications. Continue medical management per primary team and GI. PT/OT/speech when stable. We will continue to follow. Thank you for the consult. Plan discussed in detail with the patient's daughter and also with the primary attending, Dr. Wyman. Job ID: [id number] [facility]
[2019-11-25] MEDS ORDERED: Magnevist 469MG/ML 20 ML VIAL ONE (13:54)
--- NOTE | 2019-11-25 15:58 | MRI ---
MRI OF THE BRAIN PERFORMED WITH AND WITHOUT CONTRAST ENHANCEMENT: 11/25/19 HISTORY: Altered mental status, generalized weakness, questionable seizure. COMPARISON: CT examination of 11/24/19. There is generalized ventricular and sulcal prominence. T2 and FLAIR signal change in the white matte r is consistent with some chronic white matter change. No hemorrhage is demonstrated on the gradient sequence. No evidence for acute infarct. On the postcontrast images, there is no signs of any areas of abnormal contrast enhancement. Mastoid air cells and visualized sinuses are clear. IMPRESSION: No acute intracranial abnormalities. POS: OFF
[2019-11-25] MEDS: Warfarin Sodium 2.5 MG TAB PO SCH (16:02)
[2019-11-25] MEDS: cefTRIAXone\\ROCEPHIN 1 GM in Sodium Chloride 0.9% 100 ML IVPB SCH (16:02)
--- NOTE | 2019-11-25 17:00 | PDOC.HOSPP ---
- Subjective Encounter Date: 11/25/19 Encounter Time: 09:45 Subjective: pt up in bed oriented x1 - Objective Vital Signs & Weight: Vital Signs (12 hours) Temp Pulse Pulse Pulse Resp BP BP 11/25/19 15:17 99.5 F 92 20 11/25/19 13:30 88 86 133/59 L 130/60 11/25/19 11:11 99.5 F 79 20 11/25/19 08:47 11/25/19 07:53 99.3 F 89 22 H BP BP Pulse Ox 11/25/19 15:17 147/57 H 94 L 11/25/19 13:30 11/25/19 11:11 114/42 L 93 L 11/25/19 08:47 96 11/25/19 07:53 155/70 H 96 Weight Weight 200 lb 9.93 oz I&O: 11/24/19 11/25/19 11/26/19 06:59 06:59 06:59 Intake Total 350 570 Output Total 2000 Balance 350 -1430 Result Diagrams: 11/25/19 05:43 11/25/19 05:43 Additional Labs: Accuchecks 11/25/19 11/25/19 11/24/19 14:49 05:29 21:08 POC Glucose 120 H 141 H 122 H Hospitalist ROS - Review of Systems Cardiovascular: denies: chest pain, palpitations, orthopnea, paroxysmal noc. dyspnea, edema, light headedness, other Gastrointestinal: denies: nausea, vomiting, abdominal pain, diarrhea, constipation, melena, hematochezia, other Genitourinary: denies: dysuria, frequency, incontinence, hematuria, retention, other - Medication Medications: Active Medications Generic Name Dose Route Start Last Admin Trade Name Freq PRN Reason Stop Dose Admin Alprazolam 0.5 mg 11/20/19 16:04 11/25/19 16:02 Alprazolam 0.5 Mg Tab PO 0.5 mg BIDPRN PRN Administration Anxiety Atorvastatin Calcium 40 mg 11/20/19 21:00 11/24/19 21:01 Atorvastatin Calcium 40 Mg Tab PO 40 mg HS DUONG Administration Bisacodyl 10 mg 11/23/19 14:00 11/25/19 14:34 Bisacodyl 10 Mg Supp OK 10 mg Q8HR DUONG Administration Clopidogrel Bisulfate 75 mg 11/24/19 09:00 11/25/19 08:48 Clopidogrel Bisulfate 75 Mg Tab PO 75 mg DAILY DUONG Administration Ferrous Sulfate 325 mg 11/23/19 09:00 11/25/19 14:34 Ferrous Sulfate 325 Mg Tab PO 325 mg TID DUONG Administration Ceftriaxone Sodium 1 gm/ 100 mls @ 200 mls/hr 11/24/19 17:00 11/25/19 16:02 Sodium Chloride IVPB 100 mls Q24HR DUONG Administration Isosorbide Mononitrate 30 mg 11/21/19 09:00 11/25/19 08:48 Isosorbide Mononitrate Er 30 Mg Tab PO 30 mg DAILY DUONG Administration Lisinopril 10 mg 11/24/19 09:00 11/25/19 08:47 Lisinopril 10 Mg Tab PO 10 mg DAILY DUONG Administration Metoprolol Succinate 50 mg 11/20/19 21:00 11/25/19 08:47 Metoprolol Succinate Xl 50 Mg Tab PO 50 mg BID DUONG Administration Pantoprazole Sodium 40 mg 11/20/19 21:00 11/25/19 08:48 Pantoprazole 40 Mg Vial IVP 40 mg Q12HR DUONG Administration Sodium Chloride 10 ml 11/23/19 21:00 11/25/19 08:57 Flush - Normal Saline 10 Ml Syringe IVF 10 ml Q12HR DUONG Administration Warfarin Sodium 2.5 mg 11/23/19 17:00 11/25/19 16:02 Warfarin Sodium 2.5 Mg Tab PO 2.5 mg 1700 DUONG Administration - Exam Neck: negative: supple, symmetric, no JVD, no thyromegaly, no lymphadenopathy, no carotid bruit, JVD Heart: negative: RRR, no murmur, no gallops, no rubs, normal peripheral pulses, irregular, diminshed peripheral pulses, murmur present, II/IV, III/IV Respiratory: negative: CTAB, no wheezes, no rales, no ronchi, normal chest expansion, no tachypnea, normal percussion, rales, rhonchi, tachypneic, wheezes Gastrointestinal: negative: soft, non-tender, non-distended, normal bowel sounds, no palpable masses, no hepatomegaly, no splenomegaly, no bruit, no guarding, no rigidity, tender to palpation, distended, diminished bowl sounds, voluntary guarding Extremities: 1+ LE edema Hosp A/P (1) Acute hypercapnic respiratory failure Code(s): J96.02 - ACUTE RESPIRATORY FAILURE WITH HYPERCAPNIA Status: Acute (2) Atrial fibrillation Code(s): I48.91 - UNSPECIFIED ATRIAL FIBRILLATION Status: Acute (3) CAD (coronary artery disease) Code(s): I25.10 - ATHSCL HEART DISEASE OF [place] CORONARY ARTERY W/O ANG PCTRS Status: Acute (4) Diabetes mellitus type 2 in obese Code(s): E11.69 - TYPE 2 DIABETES MELLITUS WITH OTHER SPECIFIED COMPLICATION; E66.9 - OBESITY, UNSPECIFIED Status: Chronic (5) Hypertension Code(s): I10 - ESSENTIAL (PRIMARY) HYPERTENSION Status: Chronic - Plan Patient advised to be on the CPAP when she sleeps. Per patient's daughter she her mentation has improved significantly compared to yesterday. Patient's MRI pending to rule out stroke. EEG per neurology no indication of seizure. Patient currently is on patient currently on Plavix and Coumadin. Her INR was supratherapeutic when she came in. Currently H&H is stable. However her INR is subtherapeutic. Increase Coumadin to 3.
[2019-11-25] MEDS: Atorvastatin Calcium 40 MG TAB PO SCH (21:16)
[2019-11-26] MEDS: Bisacodyl 10 MG SUPP PR SCH ×4 (00:08→22:45)
[2019-11-26 05:26] LABS: Hemoglobin 7.6 g/dL (12.0-16.0)
[2019-11-26 05:33] LABS: INR-International Normal Ratio 1.4; Prothrombin Time 17.9 sec (12.0-14.7)
[2019-11-26] MEDS: Lisinopril 10 MG TAB PO SCH (08:42)
[2019-11-26] MEDS: Clopidogrel Bisulfate 75 MG TAB PO SCH (08:42)
[2019-11-26] MEDS: Ferrous Sulfate 325 MG TAB PO SCH ×3 (08:43→22:36)
[2019-11-26] MEDS: HumaLOG 300 UNITS/3 ML VIAL SC PRN ×2 (12:09→17:05)
[2019-11-26] MEDS ORDERED: Colchicine 0.6 MG TAB PO SCH (14:00)
--- NOTE | 2019-11-26 14:00 | PDOC.HOSPP ---
- Subjective Encounter Date: 11/26/19 Encounter Time: 11:45 Subjective: Patient up in bed appears to be drowsy but easily arousable. Patient's daughter states that she did have her CPAP on all night last night. - Objective Vital Signs & Weight: Vital Signs (12 hours) Temp Pulse Resp BP BP Pulse Ox 11/26/19 11:02 98.3 F 72 18 101/58 L 99 11/26/19 08:42 142/62 H 11/26/19 07:53 98.0 F 80 17 142/62 H 99 11/26/19 04:00 97.9 F 77 18 118/59 L 100 Weight Weight 200 lb 9.93 oz I&O: 11/25/19 11/26/19 11/27/19 06:59 06:59 06:59 Intake Total 570 50 Output Total 2000 1000 Balance -1430 -950 Result Diagrams: 11/26/19 04:50 11/25/19 05:43 Additional Labs: Accuchecks 11/26/19 11/26/19 11/25/19 10:54 06:18 20:36 POC Glucose 185 H 133 H 178 H 11/25/19 11/25/19 17:00 14:49 POC Glucose 152 H 120 H Hospitalist ROS - Review of Systems Gastrointestinal: denies: nausea, vomiting, abdominal pain, diarrhea, constipation, melena, hematochezia, other Genitourinary: denies: dysuria, frequency, incontinence, hematuria, retention, other - Medication Medications: Active Medications Generic Name Dose Route Start Last Admin Trade Name Freq PRN Reason Stop Dose Admin Alprazolam 0.5 mg 11/20/19 16:04 11/25/19 16:02 Alprazolam 0.5 Mg Tab PO 0.5 mg BIDPRN PRN Administration Anxiety Atorvastatin Calcium 40 mg 11/20/19 21:00 11/25/19 21:16 Atorvastatin Calcium 40 Mg Tab PO 40 mg HS DUONG Administration Bisacodyl 10 mg 11/23/19 14:00 11/26/19 13:47 Bisacodyl 10 Mg Supp AR Not Given Q8HR DUONG Clopidogrel Bisulfate 75 mg 11/24/19 09:00 11/26/19 08:42 Clopidogrel Bisulfate 75 Mg Tab PO 75 mg DAILY DUONG Administration Ferrous Sulfate 325 mg 11/23/19 09:00 11/26/19 08:43 Ferrous Sulfate 325 Mg Tab PO 325 mg TID DUONG Administration Ceftriaxone Sodium 1 gm/ 100 mls @ 200 mls/hr 11/24/19 17:00 11/25/19 16:02 Sodium Chloride IVPB 100 mls Q24HR DUONG Administration Insulin Human Lispro 0 units 11/21/19 19:18 11/26/19 12:09 Humalog 300 Units/3 Ml Vial SC 2 unit .MILD SLIDING SCALE PRN Administration Mild Correctional Scale Isosorbide Mononitrate 30 mg 11/21/19 09:00 11/26/19 08:43 Isosorbide Mononitrate Er 30 Mg Tab PO 30 mg DAILY DUONG Administration Lisinopril 10 mg 11/24/19 09:00 11/26/19 08:42 Lisinopril 10 Mg Tab PO 10 mg DAILY DUONG Administration Metoprolol Succinate 50 mg 11/20/19 21:00 11/26/19 08:42 Metoprolol Succinate Xl 50 Mg Tab PO 50 mg BID DUONG Administration Pantoprazole Sodium 40 mg 11/25/19 21:00 11/26/19 08:42 Pantoprazole 40 Mg Tab PO 40 mg Q12HR DUONG Administration Sodium Chloride 10 ml 11/23/19 21:00 11/26/19 08:43 Flush - Normal Saline 10 Ml Syringe IVF 10 ml Q12HR DUONG Administration - Exam Heart: negative: RRR, no murmur, no gallops, no rubs, normal peripheral pulses, irregular, diminshed peripheral pulses, murmur present, II/IV, III/IV Respiratory: negative: CTAB, no wheezes, no rales, no ronchi, normal chest expansion, no tachypnea, normal percussion, rales, rhonchi, tachypneic, wheezes Gastrointestinal: negative: soft, non-tender, non-distended, normal bowel sounds, no palpable masses, no hepatomegaly, no splenomegaly, no bruit, no guarding, no rigidity, tender to palpation, distended, diminished bowl sounds, voluntary guarding Extremities: negative: no cyanosis, no clubbing, no edema, 1+ LE edema, 2+ LE edema, clubbing Hosp A/P (1) Acute hypercapnic respiratory failure Code(s): J96.02 - ACUTE RESPIRATORY FAILURE WITH HYPERCAPNIA Status: Acute (2) Atrial fibrillation Code(s): I48.91 - UNSPECIFIED ATRIAL FIBRILLATION Status: Acute (3) CAD (coronary artery disease) Code(s): I25.10 - ATHSCL HEART DISEASE OF [place] CORONARY ARTERY W/O ANG PCTRS Status: Acute (4) Diabetes mellitus type 2 in obese Code(s): E11.69 - TYPE 2 DIABETES MELLITUS WITH OTHER SPECIFIED COMPLICATION; E66.9 - OBESITY, UNSPECIFIED Status: Chronic (5) Hypertension Code(s): I10 - ESSENTIAL (PRIMARY) HYPERTENSION Status: Chronic - Plan Patient advised to be on the CPAP when she sleeps. Per patient's daughter she her mentation has improved significantly compared to yesterday. Patient's MRI pending to rule out stroke. EEG per neurology no indication of seizure. Patient currently is on patient currently on Plavix and Coumadin. Her INR was supratherapeutic when she came in. Currently H&H is stable. However her INR is subtherapeutic. Increase Coumadin to 3. 10/4 pt's inr subtheraputic. her hh is low stable will monitor. pt tolerating her meals. possible discharge to inpatient rehab. pt educated to put his cpap on when she sleeps.
--- NOTE | 2019-11-26 15:12 | PDOC.NEUPN ---
- Subjective Encounter Date: 11/26/19 Subjective: Patient on CPAP but responds to questions. She is alert and oriented to her name and place today. - Objective Vital Signs & Weight: Vital Signs (12 hours) Temp Pulse Resp BP BP Pulse Ox 11/26/19 11:02 98.3 F 72 18 101/58 L 99 11/26/19 08:42 142/62 H 11/26/19 07:53 98.0 F 80 17 142/62 H 99 11/26/19 04:00 97.9 F 77 18 118/59 L 100 Weight Weight 200 lb 9.93 oz I&O: 11/25/19 11/26/19 11/27/19 06:59 06:59 06:59 Intake Total 570 50 Output Total 2000 1000 Balance -1430 -950 Result Diagrams: 11/26/19 04:50 11/25/19 05:43 Additional Labs: Accuchecks 11/26/19 11/26/19 11/25/19 10:54 06:18 20:36 POC Glucose 185 H 133 H 178 H 11/25/19 17:00 POC Glucose 152 H Radiology Reviewed by me: Yes EKG Reviewed by me: Yes ROS - Review of Systems ROS unobtainable: due to mental status - Medication Medications: Active Medications Generic Name Dose Route Start Last Admin Trade Name Freq PRN Reason Stop Dose Admin Alprazolam 0.5 mg 11/20/19 16:04 11/25/19 16:02 Alprazolam 0.5 Mg Tab PO 0.5 mg BIDPRN PRN Administration Anxiety Atorvastatin Calcium 40 mg 11/20/19 21:00 11/25/19 21:16 Atorvastatin Calcium 40 Mg Tab PO 40 mg HS DUONG Administration Bisacodyl 10 mg 11/23/19 14:00 11/26/19 13:47 Bisacodyl 10 Mg Supp MT Not Given Q8HR DUONG Clopidogrel Bisulfate 75 mg 11/24/19 09:00 11/26/19 08:42 Clopidogrel Bisulfate 75 Mg Tab PO 75 mg DAILY DUONG Administration Ferrous Sulfate 325 mg 11/23/19 09:00 11/26/19 08:43 Ferrous Sulfate 325 Mg Tab PO 325 mg TID DUONG Administration Ceftriaxone Sodium 1 gm/ 100 mls @ 200 mls/hr 11/24/19 17:00 11/25/19 16:02 Sodium Chloride IVPB 100 mls Q24HR DUONG Administration Insulin Human Lispro 0 units 11/21/19 19:18 11/26/19 12:09 Humalog 300 Units/3 Ml Vial SC 2 unit .MILD SLIDING SCALE PRN Administration Mild Correctional Scale Isosorbide Mononitrate 30 mg 11/21/19 09:00 11/26/19 08:43 Isosorbide Mononitrate Er 30 Mg Tab PO 30 mg DAILY DUONG Administration Lisinopril 10 mg 11/24/19 09:00 11/26/19 08:42 Lisinopril 10 Mg Tab PO 10 mg DAILY DUONG Administration Metoprolol Succinate 50 mg 11/20/19 21:00 11/26/19 08:42 Metoprolol Succinate Xl 50 Mg Tab PO 50 mg BID DUONG Administration Pantoprazole Sodium 40 mg 11/25/19 21:00 11/26/19 08:42 Pantoprazole 40 Mg Tab PO 40 mg Q12HR DUONG Administration Sodium Chloride 10 ml 11/23/19 21:00 11/26/19 08:43 Flush - Normal Saline 10 Ml Syringe IVF 10 ml Q12HR DUONG Administration - Exam General Appearance: awake alert Eye: PERRL ENT: normocephalic atraumatic Neck: supple, symmetric Respiratory: CTAB, no wheezes Cardiovascular: RRR, no murmur Gastrointestinal: soft, non-tender, non-distended Extremities: no cyanosis, no clubbing Skin: normal turgor, no lesions Neurological: CN's grossly intact, normal sensation to touch, no weakness, no focal deficits, no new deficit Musculoskeletal: normal tone, normal strength, no muscle wasting PSYCH: normal affect, normal behavior, oriented to person, oriented to place Results - Labs Result Diagrams: 11/26/19 04:50 11/25/19 05:43 Lab results: WBC 8.6 thou/uL (4.8-10.8) 11/25/19 05:43 Hgb 7.6 g/dL (12.0-16.0) L 11/26/19 04:50 Hct 23.3 % (36.0-47.0) L 11/26/19 04:50 MCV 95.0 fL (78.0-98.0) 11/25/19 05:43 Plt Count 187 thou/uL (130-400) 11/25/19 05:43 Neutrophils % 77.8 % (42.0-75.0) H 11/25/19 05:43 ABG pH 7.38 (7.35-7.45) 11/25/19 06:50 ABG pCO2 75.1 mmHg (35.0-45.0) H* 11/25/19 06:50 ABG pO2 67.9 mmHg (> 70.0) 11/25/19 06:50 VBG pH 7.30 (7.32-7.43) L 11/24/19 20:43 VBG pCO2 95.6 mmHg (42.0-51.0) H* 11/24/19 20:43 VBG pO2 78.6 mmHg (35.0-45.0) H 11/24/19 20:43 Sodium 141 mmol/L (136-145) 11/25/19 05:43 Potassium 4.7 mmol/L (3.5-5.1) 11/25/19 05:43 Chloride 94 mmol/L (98-107) L 11/25/19 05:43 Carbon Dioxide 37 mmol/L (23-31) H 11/25/19 05:43 BUN 23 mg/dL (9.8-20.1) H 11/25/19 05:43 Creatinine 0.98 mg/dL (0.6-1.1) 11/25/19 05:43 Glucose 139 mg/dL (83-110) H 11/25/19 05:43 Calcium 8.9 mg/dL (7.8-10.44) 11/25/19 05:43 Total Bilirubin 0.9 mg/dL (0.2-1.2) 11/25/19 05:43 AST 18 U/L (5-34) 11/25/19 05:43 ALT 7 U/L (8-55) L 11/25/19 05:43 Alkaline Phosphatase 62 U/L (40-110) 11/25/19 05:43 Troponin I Less than 0.010 ng/mL (< 0.028) 11/24/19 17:10 Serum Total Protein 5.8 g/dL (6.0-8.3) L 11/25/19 05:43 Albumin 3.5 g/dL (3.4-4.8) 11/25/19 05:43 Urine Ketones Negative mg/dL (Negative) 11/24/19 19:55 Urine Blood Negative (Negative) 11/24/19 19:55 Urine Nitrite Negative (Negative) 11/24/19 19:55 Ur Leukocyte Esterase Negative Alicia/uL (Negative) 11/24/19 19:55 Urine RBC 0-3 HPF (0-3) 11/24/19 19:55 Urine WBC 0-3 HPF (0-3) 11/24/19 19:55 Ur Squamous Epith Cells 0-3 HPF (0-3) 11/24/19 19:55 Urine Bacteria Rare-Few HPF (None Seen) 11/24/19 19:55 - Radiology Interpretation MRI - head Status: image reviewed by me, report reviewed by me Additional Comment: No acute intracranial pathology. PN A/P (1) AMS (altered mental status) Code(s): R41.82 - ALTERED MENTAL STATUS, UNSPECIFIED Status: Acute (2) Acute hypercapnic respiratory failure Code(s): J96.02 - ACUTE RESPIRATORY FAILURE WITH HYPERCAPNIA Status: Acute (3) Atrial fibrillation Code(s): I48.91 - UNSPECIFIED ATRIAL FIBRILLATION Status: Acute (4) CAD (coronary artery disease) Code(s): I25.10 - ATHSCL HEART DISEASE OF [place] CORONARY ARTERY W/O ANG PCTRS Status: Acute (5) Diabetes mellitus type 2 in obese Code(s): E11.69 - TYPE 2 DIABETES MELLITUS WITH OTHER SPECIFIED COMPLICATION; E66.9 - OBESITY, UNSPECIFIED Status: Chronic (6) Hypertension Code(s): I10 - ESSENTIAL (PRIMARY) HYPERTENSION Status: Chronic - Plan Daily Plan: plan discussed w/ family, PT/OT, speech therapy, DVT proph w/SCDs 79 year old old with altered mental status. Altered mental status seems to be multifactorial due to anemia and metabolic etiology. MRI brain reviewed and was negative for acute intracranial process. EEG captured typical spells of confusion with shaking not associated with seizure activity. Neurochecks every 4 hours. Continue home medications. No need for anticonvulsants needed because EEG and MRI Brain were negative. PT/OT/Speech when stable. Continue medical management per primary team. Plan discussed with the patient and the daughter.
[2019-11-26] MEDS: cefTRIAXone\\ROCEPHIN 1 GM in Sodium Chloride 0.9% 100 ML IVPB SCH (16:47)
[2019-11-26] MEDS ORDERED: Warfarin Sodium 2.5 MG TAB PO SCH (17:00)
[2019-11-26] MEDS: Atorvastatin Calcium 40 MG TAB PO SCH (22:35)
[2019-11-26] MEDS: Colchicine 0.6 MG TAB PO SCH (22:35)
[2019-11-26] MEDS: ALPRAZolam 0.5 MG TAB PO PRN (22:44)
[2019-11-27 05:00] LABS: Anion Gap 16 mmol/L (10-20); Calc. Creatinine Clearance 68 mL/min (70-130); Calcium 8.6 mg/dL (7.8-10.44); Carbon Dioxide 37 mmol/L (23-31); Chloride 94 mmol/L (98-107); Estimated GFR-MDRD 54; Glucose 133 mg/dL (83-110); Sodium 142 mmol/L (136-145)
[2019-11-27 05:01] LABS: BUN (Urea Nitrogen) 24 mg/dL (9.8-20.1)
[2019-11-27 05:14] LABS: Band 12 % (5-11); Eosinophils 6 % (0-10); Hemoglobin 8.6 g/dL (12.0-16.0); Lymphocytes 8 % (21-51); MDiff Complete? YES; Mean Corpuscular HGB CONC 31.9 g/dL (32.0-36.0); Mean Corpuscular Hemoglobin 31.1 pg (27.0-31.0); Mean Corpuscular Volume 97.5 fL (78.0-98.0); Mean Platelet Volume 10.2 fL (7.4-10.4); Monocytes 11 % (0-10); Neutrophil 63 % (42-75); Platelet Count 175 thou/uL (130-400); Platelet Morphology Comment Appears Adequate; RBC Distribution Width 14.9 % (11.5-14.5); Red Blood Cell (RBC) Count 2.76 mill/uL (4.20-5.40); White Blood Cell (WBC) Count 11.1 thou/uL (4.8-10.8)
[2019-11-27] MEDS: Bisacodyl 10 MG SUPP PR SCH ×3 (05:24→20:42)
[2019-11-27 07:28] LABS: INR-International Normal Ratio 1.6
[2019-11-27] MEDS: Ferrous Sulfate 325 MG TAB PO SCH ×3 (07:59→20:09)
[2019-11-27] MEDS: Clopidogrel Bisulfate 75 MG TAB PO SCH (07:59)
[2019-11-27] MEDS: Lisinopril 10 MG TAB PO SCH (08:00)
[2019-11-27] MEDS: Colchicine 0.6 MG TAB PO SCH ×2 (08:00→20:09)
[2019-11-27] MEDS: HumaLOG 300 UNITS/3 ML VIAL SC PRN (11:16)
[2019-11-27] MEDS: cefTRIAXone\\ROCEPHIN 1 GM in Sodium Chloride 0.9% 100 ML IVPB SCH (16:38)
[2019-11-27] MEDS ORDERED: Warfarin Sodium 3 MG TAB PO SCH (17:00)
--- NOTE | 2019-11-27 17:29 | PDOC.HOSPP ---
- Subjective Encounter Date: 11/27/19 Encounter Time: 09:45 Subjective: pt up in bed more oriented x3 today. Patient has been advised to keep her CPAP every time she sleeps. - Objective Vital Signs & Weight: Vital Signs (12 hours) Temp Pulse Resp BP BP BP Pulse Ox 11/27/19 15:42 98.1 F 78 20 124/47 L 97 11/27/19 11:21 98.4 F 73 20 119/45 L 99 11/27/19 11:15 123/67 119/45 L 11/27/19 07:51 96 11/27/19 07:31 98 F 81 20 143/76 H 96 Weight Weight 200 lb 9.93 oz I&O: 11/26/19 11/27/19 11/28/19 06:59 06:59 06:59 Intake Total 50 490 300 Output Total 1000 1000 Balance -950 -510 300 Result Diagrams: 11/27/19 04:28 11/27/19 04:28 Additional Labs: Accuchecks 11/27/19 11/27/19 11/27/19 16:37 10:45 05:27 POC Glucose 123 H 183 H 133 H 11/26/19 20:52 POC Glucose 152 H Hospitalist ROS - Review of Systems Cardiovascular: denies: chest pain, palpitations, orthopnea, paroxysmal noc. dyspnea, edema, light headedness, other Gastrointestinal: denies: nausea, vomiting, abdominal pain, diarrhea, constipation, melena, hematochezia, other Genitourinary: denies: dysuria, frequency, incontinence, hematuria, retention, other - Medication Medications: Active Medications Generic Name Dose Route Start Last Admin Trade Name Freq PRN Reason Stop Dose Admin Alprazolam 0.5 mg 11/20/19 16:04 11/26/19 22:44 Alprazolam 0.5 Mg Tab PO 0.5 mg BIDPRN PRN Administration Anxiety Atorvastatin Calcium 40 mg 11/20/19 21:00 11/26/19 22:35 Atorvastatin Calcium 40 Mg Tab PO 40 mg HS DUONG Administration Bisacodyl 10 mg 11/23/19 14:00 11/27/19 15:01 Bisacodyl 10 Mg Supp [place] Not Given Q8HR DUONG Clopidogrel Bisulfate 75 mg 11/24/19 09:00 11/27/19 07:59 Clopidogrel Bisulfate 75 Mg Tab PO 75 mg DAILY DUONG Administration Colchicine 0.6 mg 11/26/19 21:00 11/27/19 08:00 Colchicine 0.6 Mg Tab PO 0.6 mg BID DUONG Administration Ferrous Sulfate 325 mg 11/23/19 09:00 11/27/19 15:01 Ferrous Sulfate 325 Mg Tab PO 325 mg TID DUONG Administration Ceftriaxone Sodium 1 gm/ 100 mls @ 200 mls/hr 11/24/19 17:00 11/27/19 16:38 Sodium Chloride IVPB 100 mls Q24HR DUONG Administration Insulin Human Lispro 0 units 11/21/19 19:18 11/27/19 11:16 Humalog 300 Units/3 Ml Vial SC 2 unit .MILD SLIDING SCALE PRN Administration Mild Correctional Scale Isosorbide Mononitrate 30 mg 11/21/19 09:00 11/27/19 07:59 Isosorbide Mononitrate Er 30 Mg Tab PO 30 mg DAILY DUONG Administration Lisinopril 10 mg 11/24/19 09:00 11/27/19 08:00 Lisinopril 10 Mg Tab PO 10 mg DAILY DUONG Administration Metoprolol Succinate 50 mg 11/20/19 21:00 11/27/19 07:59 Metoprolol Succinate Xl 50 Mg Tab PO 50 mg BID DUONG Administration Pantoprazole Sodium 40 mg 11/25/19 21:00 11/27/19 08:00 Pantoprazole 40 Mg Tab PO 40 mg Q12HR DUONG Administration Sodium Chloride 10 ml 11/23/19 21:00 11/27/19 08:00 Flush - Normal Saline 10 Ml Syringe IVF 10 ml Q12HR DUONG Administration Warfarin Sodium 3 mg 11/27/19 17:00 11/27/19 16:39 Warfarin Sodium 3 Mg Tab PO 3 mg 1700 DUONG Administration - Exam Neck: negative: supple, symmetric, no JVD, no thyromegaly, no lymphadenopathy, no carotid bruit, JVD Heart: negative: RRR, no murmur, no gallops, no rubs, normal peripheral pulses, irregular, diminshed peripheral pulses, murmur present, II/IV, III/IV Respiratory: negative: CTAB, no wheezes, no rales, no ronchi, normal chest expansion, no tachypnea, normal percussion, rales, rhonchi, tachypneic, wheezes Gastrointestinal: negative: soft, non-tender, non-distended, normal bowel sounds, no palpable masses, no hepatomegaly, no splenomegaly, no bruit, no guarding, no rigidity, tender to palpation, distended, diminished bowl sounds, voluntary guarding Extremities: 1+ LE edema Hosp A/P (1) Acute hypercapnic respiratory failure Code(s): J96.02 - ACUTE RESPIRATORY FAILURE WITH HYPERCAPNIA Status: Acute Plan: acute on chronic (2) Atrial fibrillation Code(s): I48.91 - UNSPECIFIED ATRIAL FIBRILLATION Status: Acute (3) CAD (coronary artery disease) Code(s): I25.10 - ATHSCL HEART DISEASE OF [place] CORONARY ARTERY W/O ANG PCTRS Status: Acute (4) Diabetes mellitus type 2 in obese Code(s): E11.69 - TYPE 2 DIABETES MELLITUS WITH OTHER SPECIFIED COMPLICATION; E66.9 - OBESITY, UNSPECIFIED Status: Chronic (5) Hypertension Code(s): I10 - ESSENTIAL (PRIMARY) HYPERTENSION Status: Chronic (6) COPD (chronic obstructive pulmonary disease) Status: Acute - Plan Patient advised to be on the CPAP when she sleeps. Per patient's daughter she her mentation has improved significantly compared to yesterday. Patient's MRI pending to rule out stroke. EEG per neurology no indication of seizure. Patient currently is on patient currently on Plavix and Coumadin. Her INR was supratherapeutic when she came in. Currently H&H is stable. However her INR is subtherapeutic. Increase Coumadin to 3. 11/25 pt's inr subtheraputic. her hh is low stable will monitor. pt tolerating her meals. possible discharge to inpatient rehab. pt educated to put his cpap on when she sleeps. 11/26 had a very long discussion with patient's daughters updated about medical problems. Patient had a colonoscopy last year per GI records she already has had EGD x2 which indicates ulcers however they were not bleeding. Patient also has had an MRI brain which is negative for any strokes. She does have hypercapnic respiratory failure which appears to be chronic. She is currently on CPAP/BiPAP at night. I will call the [facility] for an AutoPap for the patient when she goes home. Her H&H is stable. Her INR currently is subtherapeutic. She needs to be on Plavix and Coumadin. Patient on colchicine for her gout. 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 will discharge patient to inpatient rehab.
[2019-11-27] MEDS: Atorvastatin Calcium 40 MG TAB PO SCH (20:09)
[2019-11-27] MEDS: ALPRAZolam 0.5 MG TAB PO PRN (20:09)
[2019-11-28 05:16] LABS: INR-International Normal Ratio 1.9; Prothrombin Time 22.3 sec (12.0-14.7)
[2019-11-28] MEDS: Bisacodyl 10 MG SUPP PR SCH ×2 (05:46→16:15)
[2019-11-28] MEDS ORDERED: Warfarin Sodium 3 MG TAB PO SCH (07:23)
[2019-11-28 07:34] VITALS: TEMP 98.4
[2019-11-28 07:46] LABS: #Basophils 0.1 thou/uL (0.0-0.2); #Eosinphils 0.6 thou/uL (0.0-0.7); #Lymphocytes 0.6 thou/uL (1.20-3.40); #Monocytes 0.9 thou/uL (0.11-0.59); #Neutrophils 5.1 thou/uL (1.40-6.50); %Basophils 0.7 % (0.0-1.0); %Eosinophils 8.1 % (0.0-10.0); %Lymphocytes 8.4 % (21.0-51.0); %Monocytes 12.4 % (0.0-10.0); %Neutrophils 70.4 % (42.0-75.0); Hemoglobin 7.9 g/dL (12.0-16.0); Mean Corpuscular HGB CONC 31.1 g/dL (32.0-36.0); Mean Corpuscular Volume 96.6 fL (78.0-98.0); Mean Platelet Volume 10.1 fL (7.4-10.4); Platelet Count 246 thou/uL (130-400); RBC Distribution Width 14.4 % (11.5-14.5); Red Blood Cell (RBC) Count 2.64 mill/uL (4.20-5.40); White Blood Cell (WBC) Count 7.3 thou/uL (4.8-10.8)
[2019-11-28 08:04] LABS: BUN (Urea Nitrogen) 24 mg/dL (9.8-20.1); Calc. Creatinine Clearance 71 mL/min (70-130); Calcium 8.5 mg/dL (7.8-10.44); Estimated GFR-MDRD 57; Glucose 112 mg/dL (83-110)
[2019-11-28 08:13] LABS: Anion Gap 14 mmol/L (10-20); Carbon Dioxide 37 mmol/L (23-31); Chloride 94 mmol/L (98-107); Potassium 4.6 mmol/L (3.5-5.1); Sodium 140 mmol/L (136-145)
[2019-11-28] MEDS: Colchicine 0.6 MG TAB PO SCH (08:29)
[2019-11-28] MEDS: Lisinopril 10 MG TAB PO SCH (08:29)
[2019-11-28] MEDS: Ferrous Sulfate 325 MG TAB PO SCH (08:30)
[2019-11-28] MEDS: Clopidogrel Bisulfate 75 MG TAB PO SCH (08:30)
--- NOTE | 2019-11-28 14:22 | EKG ---
Test Reason : ROUTINE Blood Pressure : / mmHG Vent. Rate : 078 BPM Atrial Rate : 078 BPM P-R Int : 192 ms QRS Dur : 108 ms QT Int : 382 ms P-R-T Axes : 064 058 040 degrees QTc Int : 435 ms Normal sinus rhythm Non-specific intra-ventricular conduction delay Abnormal ECG Confirmed by BELLE DIXON ([id number]) on 11/28/2019 2:21:37 PM Referred By: DANIEL Confirmed By:BELLE DIXON
[2019-11-28 14:51] VITALS: BP 144/77
--- NOTE | 2019-11-28 16:23 | EKG ---
Test Reason : Blood Pressure : / mmHG Vent. Rate : 084 BPM Atrial Rate : 084 BPM P-R Int : 096 ms QRS Dur : 104 ms QT Int : 378 ms P-R-T Axes : 088 017 052 degrees QTc Int : 446 ms Sinus rhythm with short [place] Nonspecific ST and T wave abnormality Abnormal ECG Confirmed by LOUIS PARISH DO [id number]), staff editor LEIGHANN REESE ([id number] on 11/28/2019 4:22:28 PM Referred By: Confirmed By:LOUIS PARISH DO
[2019-11-28] MEDS ORDERED: Warfarin Sodium 2.5 MG TAB PO SCH (17:00)
--- NOTE | 2019-11-29 02:23 | DIS ---
DATE OF ADMISSION: 11/20/2019 DATE OF DISCHARGE: 11/28/2019 DISCHARGE DIAGNOSES: 1. Chronic obstructive pulmonary disease. 2. Acute on chronic hypercapnic respiratory failure. 3. Anemia. 4. Atrial fibrillation, rate controlled. 5. Coronary artery disease, recent stent in 2019. 6. Diabetes. 7. Obesity. HOSPITAL COURSE: The patient is a very pleasant 79-year-old female, who initially presented to the hospital on 11/19 with generalized weakness and melena. She was noted to have a low H and H. She was here in October of 2019, had an endoscopy x2, which indicated clean based ulcers. She is on Coumadin and on Plavix. She was recently in rehab and was discharged home. The patient at this time was transfused and GI was consulted. No intervention was done. She was noted to have a supratherapeutic INR. At this time, her Coumadin was held. She was also started on a PPI twice a day. The patient continued to improve through the hospital stay. Given her significant hypercapnia, she had multiple episodes in the hospital of confusion. Her ABG indicated an elevated CO2; however, her pH was normal. At this time, I did get in contact with the [facility], who set up an auto PAP for this patient. The patient was supposed to follow up with Pulmonary to get an appointment to have a sleep study. However, this never happened. I have advised the family that this needs to be encouraged for her to do so. The patient setting in the hospital were changed from CPAP to BiPAP. She did well. Her mentation improved. Her hospital course was complicated with a gout flare. She has had a similar episode last time she was here, I started her on colchicine twice a day. She is at high risk of getting diarrhea. If that happens, colchicine needs to be discontinued. She will need to be on the CPAP/BiPAP every time she goes to bed. I did talk extensively with the patient's family in regard to her anemia. She was seen by GI here, recommended that she will need a capsule study as an outpatient. She has had a colonoscopy per the notes about a year ago. However, her EGD does indicate that she does have clean based ulcers and some duodenitis. She also had an MRI brain here for her change in mental status, which was normal. MEDICATIONS: The patient's home medications will be as of the following; 1. Albuterol as needed. 2. Colchicine 0.6 b.i.d. 3. Iron 325 t.i.d. 4. Metoprolol 25 mg b.i.d. 5. Protonix 40 mg twice a day. 6. Warfarin 2.5 daily. 7. Xanax 0.5 b.i.d. p.r.n. 8. Clopidogrel 75 mg daily. 9. Lasix 20 mg daily. 10. Isosorbide 30 mg daily. The patient needs to be on the Plavix because she had a stent in 2019 and she needs to be on the Coumadin for her atrial fibrillation. She also had an EEG done here, which was negative. PHYSICAL EXAMINATION: VITAL SIGNS: Her vitals on discharge were 98.4, 70, 18, 99% on 2 L, and 142/63. GENERAL: She is awake, alert, and oriented x3. Does not appear in distress. CV: S1 and S2 present. No murmurs, rubs, or gallops. She is on chronic oxygen at home. She has a history of smoking and she also has some obesity hypoventilating syndrome as well. Her H and H on discharge were 7.9. I have talked with the family that her INR has to be between 2 and 3. She will be discharged to [facility]. Job ID: [id number]
== END 2019-11-28 14:45 | DRG 377 ==
LOC: ERS 08:33 → T4-B 10:15 → 2SE 11-24 18:32
PROVIDERS: ADMIT Internal Medicine; ATTEND Internal Medicine
PROC: 30233N1 Transfusion of Nonautologous Red Blood Cells into Peripheral Vein, Percutaneous Approach (ICD-10-PCS; principal; 2019-11-20)
PROC: 5A09457 Assistance with Respiratory Ventilation, 24-96 Consecutive Hours, Continuous Positive Airway Pressure (ICD-10-PCS; 2019-11-25)
DX: K92.2 Gastrointestinal hemorrhage, unspecified (principal); J96.22 Acute and chronic respiratory failure with hypercapnia; I48.19 Other persistent atrial fibrillation; E66.2 Morbid (severe) obesity with alveolar hypoventilation; I25.10 Atherosclerotic heart disease of native coronary artery without angina pectoris; E11.69 Type 2 diabetes mellitus with other specified complication; J44.9 Chronic obstructive pulmonary disease, unspecified; I11.0 Hypertensive heart disease with heart failure; I50.9 Heart failure, unspecified; Z96.653 Presence of artificial knee joint, bilateral; F41.9 Anxiety disorder, unspecified; F32.9 Major depressive disorder, single episode, unspecified; Z20.828 Contact with and (suspected) exposure to other viral communicable diseases; E78.5 Hyperlipidemia, unspecified; M19.90 Unspecified osteoarthritis, unspecified site; D50.9 Iron deficiency anemia, unspecified; K59.00 Constipation, unspecified; Z90.710 Acquired absence of both cervix and uterus; Z79.82 Long term (current) use of aspirin; Z79.51 Long term (current) use of inhaled steroids; Z79.899 Other long term (current) drug therapy; Z95.5 Presence of coronary angioplasty implant and graft; Z79.02 Long term (current) use of antithrombotics/antiplatelets; Z79.01 Long term (current) use of anticoagulants; Z68.37 Body mass index [BMI] 37.0-37.9, adult; Z88.5 Allergy status to narcotic agent
CPT/HCPCS: 36415; 36416; 36430; 70450; 70553; 71045; 74177; 80048; 80053; 81001; 81003; 81015; 82274; 82607; 82728; 82746; 82805; 83540; 83550; 83735; 84484; 85014; 85018; 85025; 85046; 85610; 85730; 86850; 86900; 86901; 87040; 87635; 93005; 93010; 94660; 95816; 95819; 96361; 96365; A9579; C9113; J0696; J3475; J3490; P9016; Q9967; U0003

== ENCOUNTER 2020-06-27 12:25 | Outpatient (CLI) | payer MEDICARE | END 2020-06-27 12:26 | disposition home or self-care (01) | LOC: BICRAD 12:25 | PROVIDERS: ATTEND Internal Medicine Critical Care Medicine | DX: R06.00 Dyspnea, unspecified (principal) | CPT/HCPCS: 71046 ==

== ENCOUNTER 2020-08-17 19:00 | Outpatient (CLI) | payer MEDICARE | END 2020-08-17 19:01 | disposition home or self-care (01) | LOC: SLEEPLAB 19:00 | PROVIDERS: ATTEND Internal Medicine Critical Care Medicine | DX: G47.33 Obstructive sleep apnea (adult) (pediatric) (principal); R53.83 Other fatigue; R06.83 Snoring; G47.10 Hypersomnia, unspecified; I11.0 Hypertensive heart disease with heart failure; I50.9 Heart failure, unspecified; I48.91 Unspecified atrial fibrillation; G47.00 Insomnia, unspecified | CPT/HCPCS: 95810 ==

== ENCOUNTER 2020-10-09 11:10 | Inpatient (IN) | payer MEDICARE ==
[2020-10-09 12:08] LABS: #Eosinphils 0.2 thou/uL (0.0-0.7); #Lymphocytes 0.6 thou/uL (1.20-3.40); #Monocytes 0.7 thou/uL (0.11-0.59); #Neutrophils 7.2 thou/uL (1.40-6.50); %Basophils 0.4 % (0.0-1.0); %Eosinophils 2.8 % (0.0-10.0); %Neutrophils 81.9 % (42.0-75.0); Mean Corpuscular HGB CONC 30.6 g/dL (32.0-36.0); Mean Corpuscular Hemoglobin 28.8 pg (27.0-31.0); Mean Corpuscular Volume 94.1 fL (78.0-98.0); Mean Platelet Volume 9.2 fL (7.4-10.4); Platelet Count 309 thou/uL (130-400); RBC Distribution Width 13.7 % (11.5-14.5); Red Blood Cell (RBC) Count 2.07 mill/uL (4.20-5.40); White Blood Cell (WBC) Count 8.8 thou/uL (4.8-10.8)
[2020-10-09 12:33] LABS: ALT (SGPT) 7 U/L (8-55); AST (SGOT) 11 U/L (5-34); Albumin 3.6 g/dL (3.4-4.8); Alkaline Phosphatase 75 U/L (40-110); Anion Gap 16 mmol/L (10-20); BUN (Urea Nitrogen) 23 mg/dL (9.8-20.1); Bilirubin, Total 1.1 mg/dL (0.2-1.2); Calc. Creatinine Clearance 0 mL/min (70-130); Calcium 9.2 mg/dL (7.8-10.44); Carbon Dioxide 36 mmol/L (23-31); Chloride 95 mmol/L (98-107); Globulin 2.9 g/dL (2.4-3.5); Glucose 167 mg/dL (83-110); Potassium 4.7 mmol/L (3.5-5.1); Protein, Total 6.5 g/dL (5.8-8.1); Sodium 142 mmol/L (136-145)
[2020-10-09 13:10] LABS: INR-International Normal Ratio 1.8; Prothrombin Time 20.7 sec (12.0-14.7)
[2020-10-09 13:11] LABS: PTT 34.2 sec (22.9-36.1)
[2020-10-09] MEDS ORDERED: Furosemide 20 MG/2 ML VIAL ONE (13:24)
[2020-10-09] MEDS ORDERED: Phytonadione 10 MG/ML AMP PO SCH (13:30)
[2020-10-09 13:32] LABS: Bilirubin Negative (Negative); Blood, Urine 1+ (Negative); Clarity Clear (Clear); Glucose, Urine (Dipstick) Normal (Negative); Ketone, Urine Negative (Negative); Leukocyte Negative Leu/uL (Negative); Nitrite Negative (Negative); Protein, Urine (Dipstick) Negative (Neg-Trace); RBC/HPF 0-3 HPF (0-3); Specific Gravity, Urine 1.012 (1.002-1.036); Squamous Epithelial 0-3 HPF (0-3); Urobilinogen Normal mg/dL (Less than 2); WBC/HPF 0-3 HPF (0-3)
[2020-10-09 13:33] LABS: Bacteria/HPF 1+ HPF (None Seen)
[2020-10-09] MEDS ORDERED: Phytonadione 10 MG/ML AMP ONE (13:40)
[2020-10-09 13:42] LABS: SARS-CoV-2 NAA Rapid Test Not Detected (NotDetected)
[2020-10-09] MEDS ORDERED: Pantoprazole 40 MG VIAL ONE ×2 (13:42→13:53)
[2020-10-09 15:35] LABS: Troponin I Less than 0.010 ng/mL (< 0.028)
[2020-10-09] MEDS ORDERED: Ondansetron ODT 4 MG TAB PO PRN (15:59)
[2020-10-09] MEDS ORDERED: hydrALAZINE 20 MG/ML VIAL SLOW IVP PRN (15:59)
[2020-10-09] MEDS ORDERED: Dextrose 50% Abboject 50 ML SYRINGE SLOW IVP PRN (15:59)
[2020-10-09] MEDS ORDERED: Dextrose 5% in Water 1,000 ML IV PRN (15:59)
[2020-10-09] MEDS ORDERED: Ondansetron PF 4 MG/2 ML Vial IVP PRN (15:59)
[2020-10-09 16:41] VITALS: BMI 37.1
[2020-10-09 17:44] LABS: Troponin I Less than 0.010 ng/mL (< 0.028)
[2020-10-09] MEDS: Pantoprazole 40 MG VIAL IVP SCH (21:15)
[2020-10-09] MEDS ORDERED: Furosemide 40 MG/4 ML VIAL SLOW IVP SCH (22:00)
[2020-10-10 05:00] LABS: #Eosinphils 0.4 thou/uL (0.0-0.7); #Monocytes 0.8 thou/uL (0.11-0.59); #Neutrophils 5.8 thou/uL (1.40-6.50); %Basophils 0.3 % (0.0-1.0); %Eosinophils 4.7 % (0.0-10.0); %Lymphocytes 12.3 % (21.0-51.0); %Monocytes 9.7 % (0.0-10.0); Hemoglobin 7.6 g/dL (12.0-16.0); Mean Corpuscular HGB CONC 32.9 g/dL (32.0-36.0); Mean Corpuscular Volume 91.3 fL (78.0-98.0); Mean Platelet Volume 9.1 fL (7.4-10.4); Platelet Count 268 thou/uL (130-400); RBC Distribution Width 14.3 % (11.5-14.5); Red Blood Cell (RBC) Count 2.52 mill/uL (4.20-5.40)
[2020-10-10 05:29] LABS: BUN (Urea Nitrogen) 26 mg/dL (9.8-20.1); Calc. Creatinine Clearance 48 mL/min (70-130); Calcium 9.1 mg/dL (7.8-10.44); Glucose 170 mg/dL (83-110)
[2020-10-10 05:38] LABS: Anion Gap 16 mmol/L (10-20); Carbon Dioxide 39 mmol/L (23-31); Chloride 93 mmol/L (98-107); Potassium 4.1 mmol/L (3.5-5.1); Sodium 144 mmol/L (136-145)
[2020-10-10] MEDS: Furosemide 40 MG/4 ML VIAL SLOW IVP SCH ×2 (06:19→15:53)
[2020-10-10] MEDS: Pantoprazole 40 MG VIAL IVP SCH ×2 (09:23→21:21)
[2020-10-10 11:39] LABS: INR-International Normal Ratio 1.3; Prothrombin Time 16.2 sec (12.0-14.7)
[2020-10-10] MEDS: HumaLOG 300 UNITS/3 ML VIAL SC PRN (11:51)
[2020-10-10] MEDS ORDERED: GoLYTELY 4,000 ml Bottle PO SCH (17:00)
[2020-10-10] MEDS: Acetaminophen 325 MG TAB PO PRN (21:20)
[2020-10-11] MEDS: Furosemide 40 MG/4 ML VIAL SLOW IVP SCH ×2 (05:33→15:55)
[2020-10-11 08:39] LABS: Hemoglobin 9.1 g/dL (12.0-16.0); Mean Corpuscular HGB CONC 30.3 g/dL (32.0-36.0); Mean Corpuscular Hemoglobin 27.9 pg (27.0-31.0); Mean Corpuscular Volume 91.8 fL (78.0-98.0); Mean Platelet Volume 9.4 fL (7.4-10.4); Platelet Count 311 thou/uL (130-400); RBC Distribution Width 14.2 % (11.5-14.5); Red Blood Cell (RBC) Count 3.28 mill/uL (4.20-5.40); White Blood Cell (WBC) Count 10.7 thou/uL (4.8-10.8)
[2020-10-11 08:53] LABS: BUN (Urea Nitrogen) 23 mg/dL (9.8-20.1); Calc. Creatinine Clearance 54 mL/min (70-130); Calcium 9.7 mg/dL (7.8-10.44); Glucose 164 mg/dL (83-110)
[2020-10-11 09:06] LABS: Anion Gap 22 mmol/L (10-20); Carbon Dioxide 39 mmol/L (23-31); Chloride 87 mmol/L (98-107); Potassium 4.2 mmol/L (3.5-5.1); Sodium 144 mmol/L (136-145)
[2020-10-11] MEDS ORDERED: PROPOFOL 200 MG/20 ML VIAL ONE (10:42)
[2020-10-11] MEDS ORDERED: Lidocaine 1% PF 5 ML VIAL ONE (10:42)
[2020-10-11] MEDS ORDERED: Ondansetron HCl/PF 4 MG/2 ML Vial IVP PRN (11:17)
[2020-10-11] MEDS ORDERED: Promethazine HCl 25 MG/ML VIAL IVPB PRN (11:17)
[2020-10-11] MEDS ORDERED: Promethazine HCl 25 MG/ML VIAL IM PRN (11:17)
[2020-10-11] MEDS: Pantoprazole 40 MG VIAL IVP SCH ×2 (12:08→21:33)
[2020-10-11] MEDS: Warfarin Sodium 2 MG TAB PO SCH (15:56)
[2020-10-11] MEDS: Lisinopril 5 MG TAB PO SCH (21:32)
[2020-10-11] MEDS: Ferrous Sulfate 325 MG TAB PO SCH (21:32)
[2020-10-11] MEDS: HumaLOG 300 UNITS/3 ML VIAL SC PRN (21:34)
[2020-10-12 04:55] LABS: INR-International Normal Ratio 1.1; PTT 40.7 sec (22.9-36.1); Prothrombin Time 14.3 sec (12.0-14.7)
[2020-10-12] MEDS: Furosemide 40 MG TAB PO SCH (08:39)
[2020-10-12] MEDS: Clopidogrel Bisulfate 75 MG TAB PO SCH (08:39)
[2020-10-12] MEDS: Lisinopril 5 MG TAB PO SCH ×2 (08:39→21:59)
[2020-10-12] MEDS: Ferrous Sulfate 325 MG TAB PO SCH ×3 (08:39→21:59)
[2020-10-12] MEDS: Pantoprazole 40 MG VIAL IVP SCH ×2 (08:40→22:00)
[2020-10-12] MEDS ORDERED: Nystatin Powder 15 GM BOT TOP PRN (13:24)
[2020-10-12] MEDS: Warfarin Sodium 2 MG TAB PO SCH (16:05)
[2020-10-12] MEDS: HumaLOG 300 UNITS/3 ML VIAL SC PRN ×2 (16:56→22:02)
[2020-10-12] MEDS: Atorvastatin Calcium 40 MG TAB PO SCH (21:58)
[2020-10-12] MEDS: Acetaminophen 325 MG TAB PO PRN (21:59)
[2020-10-13 05:10] LABS: Platelet Count 233 thou/uL (130-400)
[2020-10-13 07:19] LABS: BUN (Urea Nitrogen) 26 mg/dL (9.8-20.1); Calc. Creatinine Clearance 56 mL/min (70-130); Calcium 9.1 mg/dL (7.8-10.44); Glucose 153 mg/dL (83-110); Magnesium 1.5 mg/dL (1.6-2.6)
[2020-10-13 07:29] LABS: Anion Gap 13 mmol/L (10-20); Chloride 89 mmol/L (98-107); Potassium 3.4 mmol/L (3.5-5.1); Sodium 142 mmol/L (136-145)
[2020-10-13 07:32] LABS: Carbon Dioxide 43 mmol/L (23-31)
[2020-10-13] MEDS ORDERED: Furosemide 20 MG/2 ML VIAL SLOW IVP SCH (08:15)
[2020-10-13 08:18] LABS: INR-International Normal Ratio 1.1; Prothrombin Time 14.3 sec (12.0-14.7)
[2020-10-13] MEDS: Lisinopril 5 MG TAB PO SCH (08:55)
[2020-10-13] MEDS: Furosemide 40 MG TAB PO SCH (08:55)
[2020-10-13] MEDS: Clopidogrel Bisulfate 75 MG TAB PO SCH (08:55)
[2020-10-13] MEDS: Ferrous Sulfate 325 MG TAB PO SCH ×3 (08:55→22:28)
[2020-10-13] MEDS: Pantoprazole 40 MG VIAL IVP SCH ×2 (08:56→22:56)
[2020-10-13] MEDS ORDERED: Magnesium 2 GM/50 ML 2 GM in Premix Bag 1 BAG IVPB SCH (09:15)
[2020-10-13] MEDS ORDERED: Potassium Chloride 20 MEQ TAB PO SCH (09:15)
[2020-10-13] MEDS: AcetaZOLAMIDE 250 MG TAB PO SCH ×2 (09:34→22:28)
[2020-10-13 10:21] LABS: Hemoglobin 7.4 g/dL (12.0-16.0)
[2020-10-13] MEDS: HumaLOG 300 UNITS/3 ML VIAL SC PRN ×2 (11:10→18:04)
[2020-10-13] MEDS: Potassium Chloride 20 MEQ TAB PO SCH (15:56)
[2020-10-13] MEDS: Warfarin Sodium 2 MG TAB PO SCH (15:57)
[2020-10-13] MEDS: Atorvastatin Calcium 40 MG TAB PO SCH (22:28)
[2020-10-14 05:15] LABS: Hemoglobin 7.7 g/dL (12.0-16.0)
[2020-10-14 05:26] LABS: BUN (Urea Nitrogen) 30 mg/dL (9.8-20.1); Calc. Creatinine Clearance 50 mL/min (70-130); Calcium 9.3 mg/dL (7.8-10.44); Glucose 133 mg/dL (83-110)
[2020-10-14 05:35] LABS: Anion Gap 17 mmol/L (10-20); Carbon Dioxide 38 mmol/L (23-31); Chloride 92 mmol/L (98-107); Potassium 4.1 mmol/L (3.5-5.1); Sodium 143 mmol/L (136-145)
[2020-10-14 08:05] VITALS: TEMP 98.4
[2020-10-14] MEDS: Potassium Chloride 20 MEQ TAB PO SCH (08:57)
[2020-10-14] MEDS: Pantoprazole 40 MG VIAL IVP SCH (08:57)
[2020-10-14] MEDS: Ferrous Sulfate 325 MG TAB PO SCH (08:57)
[2020-10-14] MEDS: AcetaZOLAMIDE 250 MG TAB PO SCH (08:58)
[2020-10-14] MEDS: Furosemide 40 MG TAB PO SCH (08:59)
[2020-10-14] MEDS ORDERED: Lisinopril 5 MG TAB PO SCH (09:00)
[2020-10-14 11:56] VITALS: BP 120/44
== END 2020-10-14 14:00 | disposition home health service (06) | DRG 811 ==
LOC: ERS 11:10 → 2SE 13:22
PROVIDERS: ADMIT Internal Medicine; ATTEND Family Medicine
PROC: 30233N1 Transfusion of Nonautologous Red Blood Cells into Peripheral Vein, Percutaneous Approach (ICD-10-PCS; principal; 2020-10-09)
PROC: 0DJ08ZZ Inspection of Upper Intestinal Tract, Via Natural or Artificial Opening Endoscopic (ICD-10-PCS; 2020-10-11)
PROC: 0DJD8ZZ Inspection of Lower Intestinal Tract, Via Natural or Artificial Opening Endoscopic (ICD-10-PCS; 2020-10-11)
DX: D64.9 Anemia, unspecified (principal); I50.33 Acute on chronic diastolic (congestive) heart failure; J96.21 Acute and chronic respiratory failure with hypoxia; I13.0 Hypertensive heart and chronic kidney disease with heart failure and stage 1 through stage 4 chronic kidney disease, or unspecified chronic kidney disease; J44.1 Chronic obstructive pulmonary disease with (acute) exacerbation; E87.3 Alkalosis; I48.19 Other persistent atrial fibrillation; Z66 Do not resuscitate; Z20.822 Contact with and (suspected) exposure to COVID-19; E11.22 Type 2 diabetes mellitus with diabetic chronic kidney disease; E78.5 Hyperlipidemia, unspecified; M10.9 Gout, unspecified; I25.10 Atherosclerotic heart disease of native coronary artery without angina pectoris; I48.0 Paroxysmal atrial fibrillation; N18.30 Chronic kidney disease, stage 3 unspecified; I07.1 Rheumatic tricuspid insufficiency; E11.69 Type 2 diabetes mellitus with other specified complication; E66.9 Obesity, unspecified; K57.30 Diverticulosis of large intestine without perforation or abscess without bleeding; Z96.653 Presence of artificial knee joint, bilateral; Z90.710 Acquired absence of both cervix and uterus; Z88.5 Allergy status to narcotic agent; Z79.899 Other long term (current) drug therapy; Z79.84 Long term (current) use of oral hypoglycemic drugs; Z79.51 Long term (current) use of inhaled steroids; Z95.5 Presence of coronary angioplasty implant and graft; Z79.01 Long term (current) use of anticoagulants; Z68.37 Body mass index [BMI] 37.0-37.9, adult
CPT/HCPCS: 0240U; 36415; 36416; 36430; 71045; 80048; 80053; 81003; 81015; 83735; 83880; 84484; 85014; 85018; 85025; 85027; 85049; 85610; 85730; 86850; 86900; 86901; 93005; 93798; 94640; 94760; 96374; 96375; 97139; C9113; J1815; J1940; J2704; J3430; J3475; J7620; P9016

== ENCOUNTER 2020-10-16 13:09 | Outpatient (CLI) | payer MEDICARE, SELFPAY | END 2020-10-16 13:10 | disposition home or self-care (01) | LOC: CT 13:09 | PROVIDERS: ATTEND Physical Medicine & Rehabilitation | DX: S09.90XD Unspecified injury of head, subsequent encounter (principal) | CPT/HCPCS: 70450 ==

== ENCOUNTER 2020-11-13 05:52 | Emergency (ER) | payer MEDICARE ==
[2020-11-13] MEDS ORDERED: Magnesium 2 GM/50 ML BAG (IN WATER) ONE (06:05)
[2020-11-13] MEDS ORDERED: methylPREDNISolone Sod Succ/PF 125 MG/2 ML VIAL ONE (06:05)
[2020-11-13 06:36] LABS: #Basophils 0.1 thou/uL (0.0-0.2); #Eosinphils 0.3 thou/uL (0.0-0.7); #Lymphocytes 0.9 thou/uL (1.20-3.40); #Monocytes 1.2 thou/uL (0.11-0.59); #Neutrophils 8.8 thou/uL (1.40-6.50); %Basophils 0.5 % (0.0-1.0); %Eosinophils 2.5 % (0.0-10.0); %Lymphocytes 7.7 % (21.0-51.0); %Monocytes 10.7 % (0.0-10.0); %Neutrophils 78.6 % (42.0-75.0); Hemoglobin 7.7 g/dL (12.0-16.0); Mean Corpuscular Hemoglobin 29.6 pg (27.0-31.0); Mean Corpuscular Volume 98.8 fL (78.0-98.0); Mean Platelet Volume 9.8 fL (7.4-10.4); Platelet Count 234 thou/uL (130-400); RBC Distribution Width 16.7 % (11.5-14.5); Red Blood Cell (RBC) Count 2.59 mill/uL (4.20-5.40); White Blood Cell (WBC) Count 11.2 thou/uL (4.8-10.8)
[2020-11-13 06:56] LABS: ALT (SGPT) 33 U/L (8-55); AST (SGOT) 32 U/L (5-34); Albumin 3.9 g/dL (3.4-4.8); Alkaline Phosphatase 110 U/L (40-110); BUN (Urea Nitrogen) 30 mg/dL (9.8-20.1); Bilirubin, Total 0.7 mg/dL (0.2-1.2); Calc. Creatinine Clearance 0 mL/min (70-130); Calcium 9.6 mg/dL (7.8-10.44); Globulin 2.6 g/dL (2.4-3.5); Glucose 206 mg/dL (83-110); Protein, Total 6.5 g/dL (5.8-8.1)
[2020-11-13 07:05] LABS: Anion Gap 15 mmol/L (10-20); Carbon Dioxide 38 mmol/L (23-31); Chloride 97 mmol/L (98-107); Potassium 4.9 mmol/L (3.5-5.1); Sodium 145 mmol/L (136-145)
[2020-11-13] MEDS ORDERED: Furosemide 40 MG/4 ML VIAL ONE (07:21)
== END 2020-11-13 09:00 | disposition home or self-care (01) ==
LOC: ERS 05:52
DX: I11.0 Hypertensive heart disease with heart failure (principal); I50.9 Heart failure, unspecified; J44.9 Chronic obstructive pulmonary disease, unspecified; D64.9 Anemia, unspecified; I48.91 Unspecified atrial fibrillation; E11.9 Type 2 diabetes mellitus without complications; M10.9 Gout, unspecified; Z79.84 Long term (current) use of oral hypoglycemic drugs; Z79.899 Other long term (current) drug therapy; Z79.01 Long term (current) use of anticoagulants
CPT/HCPCS: 36415; 71045; 80053; 83880; 84484; 85025; 93005; 96374; 96375; J1940; J2930; J3475

== ENCOUNTER 2020-11-17 07:18 | Inpatient (IN) | payer MEDICARE ==
[2020-11-17] MEDS ORDERED: Morphine 4 MG/ML VIAL ONE ×2 (09:09→11:06)
[2020-11-17 09:44] LABS: #Eosinphils 0.2 thou/uL (0.0-0.7); #Lymphocytes 0.6 thou/uL (1.20-3.40); #Monocytes 0.6 thou/uL (0.11-0.59); #Neutrophils 9.3 thou/uL (1.40-6.50); %Basophils 0.4 % (0.0-1.0); %Eosinophils 1.9 % (0.0-10.0); %Lymphocytes 5.8 % (21.0-51.0); %Monocytes 5.7 % (0.0-10.0); %Neutrophils 86.3 % (42.0-75.0); Hemoglobin 6.8 g/dL (12.0-16.0); Mean Corpuscular Hemoglobin 29.9 pg (27.0-31.0); Mean Corpuscular Volume 99.5 fL (78.0-98.0); Mean Platelet Volume 9.8 fL (7.4-10.4); Platelet Count 231 thou/uL (130-400); RBC Distribution Width 15.6 % (11.5-14.5); Red Blood Cell (RBC) Count 2.28 mill/uL (4.20-5.40); White Blood Cell (WBC) Count 10.8 thou/uL (4.8-10.8)
[2020-11-17 09:51] LABS: INR-International Normal Ratio 1.1; PTT 31.7 sec (22.9-36.1); Prothrombin Time 14.3 sec (12.0-14.7)
[2020-11-17 09:58] LABS: ALT (SGPT) 18 U/L (8-55); AST (SGOT) 14 U/L (5-34); Albumin 3.4 g/dL (3.4-4.8); Alkaline Phosphatase 79 U/L (40-110); BUN (Urea Nitrogen) 31 mg/dL (9.8-20.1); Bilirubin, Total 0.6 mg/dL (0.2-1.2); Calc. Creatinine Clearance 0 mL/min (70-130); Calcium 9.2 mg/dL (7.8-10.44); Globulin 2.3 g/dL (2.4-3.5); Glucose 173 mg/dL (83-110); Protein, Total 5.7 g/dL (5.8-8.1)
[2020-11-17 10:05] LABS: Carbon Dioxide Greater than 37 mmol/L (23-31); Chloride 93 mmol/L (98-107); Potassium 4.7 mmol/L (3.5-5.1); Sodium 144 mmol/L (136-145)
[2020-11-17] MEDS ORDERED: Ondansetron PF 4 MG/2 ML Vial IVP PRN (12:10)
[2020-11-17] MEDS ORDERED: Dextrose 5% in Water 1,000 ML IV PRN (12:10)
[2020-11-17] MEDS ORDERED: Ondansetron ODT 4 MG TAB PO PRN (12:10)
[2020-11-17] MEDS ORDERED: hydrALAZINE 20 MG/ML VIAL SLOW IVP PRN (12:10)
[2020-11-17] MEDS ORDERED: Dextrose 50% Abboject 50 ML SYRINGE SLOW IVP PRN (12:10)
[2020-11-17] MEDS ORDERED: Morphine 2 MG/ML VIAL SLOW IVP PRN (12:10)
[2020-11-17] MEDS ORDERED: traMADol HCl 50 MG TAB PO PRN (12:34)
[2020-11-17] MEDS ORDERED: Ibuprofen 800 MG TAB PO PRN (12:34)
[2020-11-17 13:14] LABS: Phosphorus 3.4 mg/dL (2.3-4.7)
[2020-11-17 13:16] LABS: Magnesium 1.7 mg/dL (1.6-2.6)
[2020-11-17 14:27] VITALS: BMI 35.6
[2020-11-17] MEDS: traMADol HCl 50 MG TAB PO SCH ×2 (15:18→18:29)
[2020-11-17 16:07] LABS: Magnesium 1.7 mg/dL (1.6-2.6); Phosphorus 3.6 mg/dL (2.3-4.7)
[2020-11-17] MEDS: Ferrous Sulfate 325 MG TAB PO SCH (16:51)
[2020-11-17] MEDS: Acetaminophen 500 MG TAB PO SCH ×2 (16:51→23:42)
[2020-11-17] MEDS ORDERED: ALPRAZolam 0.5 MG TAB PO PRN (20:24)
[2020-11-17] MEDS: Ascorbic Acid 500 mg Chewable Tablet PO SCH (20:36)
[2020-11-17] MEDS: Senokot S 8.6-50 MG TAB PO SCH (20:36)
[2020-11-17] MEDS ORDERED: Famotidine 20 MG TAB PO SCH (21:00)
[2020-11-18] MEDS: traMADol HCl 50 MG TAB PO SCH ×3 (00:17→17:59)
[2020-11-18 00:56] LABS: Bilirubin Negative (Negative); Blood, Urine Negative (Negative); Clarity Clear (Clear); Glucose, Urine (Dipstick) Normal (Negative); Ketone, Urine Negative (Negative); Leukocyte Negative Leu/uL (Negative); Nitrite Negative (Negative); Protein, Urine (Dipstick) Negative (Neg-Trace); Specific Gravity, Urine 1.018 (1.002-1.036); Urobilinogen Normal mg/dL (Less than 2); pH, Urine 6.5 (5.0-9.0)
[2020-11-18 06:09] LABS: #Eosinphils 0.5 thou/uL (0.0-0.7); #Lymphocytes 0.6 thou/uL (1.20-3.40); #Monocytes 0.8 thou/uL (0.11-0.59); #Neutrophils 9.8 thou/uL (1.40-6.50); %Basophils 0.2 % (0.0-1.0); %Eosinophils 3.9 % (0.0-10.0); %Lymphocytes 5.4 % (21.0-51.0); %Neutrophils 83.6 % (42.0-75.0); Hemoglobin 7.7 g/dL (12.0-16.0); Mean Corpuscular HGB CONC 30.6 g/dL (32.0-36.0); Mean Corpuscular Hemoglobin 28.5 pg (27.0-31.0); Mean Corpuscular Volume 93.1 fL (78.0-98.0); Platelet Count 195 thou/uL (130-400); RBC Distribution Width 21.3 % (11.5-14.5); Red Blood Cell (RBC) Count 2.71 mill/uL (4.20-5.40); White Blood Cell (WBC) Count 11.7 thou/uL (4.8-10.8)
[2020-11-18 06:22] LABS: BUN (Urea Nitrogen) 34 mg/dL (9.8-20.1); Calc. Creatinine Clearance 68 mL/min (70-130); Calcium 8.9 mg/dL (7.8-10.44); Glucose 137 mg/dL (83-110); Phosphorus 4.2 mg/dL (2.3-4.7)
[2020-11-18 06:32] LABS: Anion Gap 15 mmol/L (10-20); Carbon Dioxide 38 mmol/L (23-31); Chloride 95 mmol/L (98-107); Sodium 143 mmol/L (136-145)
[2020-11-18] MEDS: Acetaminophen 500 MG TAB PO SCH ×4 (06:33→23:57)
[2020-11-18] MEDS ORDERED: Lisinopril 20 MG TAB PO SCH (09:00)
[2020-11-18] MEDS: Ascorbic Acid 500 mg Chewable Tablet PO SCH ×3 (09:35→21:26)
[2020-11-18] MEDS: metFORMIN 500 MG TAB PO SCH (09:40)
[2020-11-18] MEDS ORDERED: Lorazepam 2 MG/ML VIAL SLOW IVP PRN (14:51)
[2020-11-18] MEDS ORDERED: Melatonin 3 MG TAB PO PRN (14:52)
[2020-11-18] MEDS ORDERED: Dextrose 5% in Water 1,000 ML IV PRN (16:14)
[2020-11-18] MEDS ORDERED: Dextrose 50% Abboject 50 ML SYRINGE SLOW IVP PRN (16:14)
[2020-11-18] MEDS: Sodium Chloride 0.9% 1,000 ML IV SCH (17:16)
[2020-11-18] MEDS: Ferrous Sulfate 325 MG TAB PO SCH ×3 (17:55→21:16)
[2020-11-18] MEDS: Senokot S 8.6-50 MG TAB PO SCH ×3 (17:56→21:25)
[2020-11-18] MEDS: Polyethylene Glycol 3350 17 GM Packet PO SCH (17:56)
[2020-11-18] MEDS ORDERED: ALPRAZolam 0.5 MG TAB PO SCH (21:00)
[2020-11-18] MEDS ORDERED: Colchicine 0.6 MG TAB PO PRN (21:00)
[2020-11-19] MEDS: Sodium Chloride 0.9% 1,000 ML IV SCH ×2 (05:00→12:22)
[2020-11-19] MEDS: Acetaminophen 500 MG TAB PO SCH ×4 (06:25→17:21)
[2020-11-19] MEDS ORDERED: Furosemide 20 MG TAB PO SCH (07:30)
[2020-11-19] MEDS ORDERED: Potassium Chloride 10 MEQ TAB PO SCH (08:00)
[2020-11-19] MEDS: Clopidogrel Bisulfate 75 MG TAB PO SCH (09:50)
[2020-11-19] MEDS: Polyethylene Glycol 3350 17 GM Packet PO SCH (09:50)
[2020-11-19] MEDS: Ascorbic Acid 500 mg Chewable Tablet PO SCH ×2 (09:50→21:26)
[2020-11-19] MEDS: Senokot S 8.6-50 MG TAB PO SCH ×2 (09:50→21:25)
[2020-11-19] MEDS: Ferrous Sulfate 325 MG TAB PO SCH ×2 (09:50→21:26)
[2020-11-19] MEDS: metFORMIN 500 MG TAB PO SCH (09:50)
[2020-11-19 10:08] LABS: Actual Bicarbonate (HCO3a) 47.7 mEq/L (22-28); Base Excess (BEa) 20.2 mEq/L (-2.0 to +3.0); Calcium, Ionized (arterial) 1.14 mmol/L (1.12-1.30); Carboxyhemoglobin (COHb) 1.3 gm% (0.0-3.0); Hemoglobin (Hb) 7.7 g/dL (12.0-16.0); O2 Tension (PaO2), arterial 66.6 mmHg (> 70.0); Potassium - ABG Lab 4.56 mmol/L (3.70-5.30); pH, Arterial 7.39 (7.35-7.45)
[2020-11-19 10:09] LABS: CO2 Tension 81.6 mmHg (35.0-45.0); Puncture Site LRA
[2020-11-19 10:13] LABS: #Eosinphils 0.3 thou/uL (0.0-0.7); #Lymphocytes 0.6 thou/uL (1.20-3.40); #Monocytes 0.6 thou/uL (0.11-0.59); #Neutrophils 7.7 thou/uL (1.40-6.50); %Basophils 0.2 % (0.0-1.0); %Eosinophils 3.3 % (0.0-10.0); %Lymphocytes 6.7 % (21.0-51.0); %Monocytes 6.8 % (0.0-10.0); %Neutrophils 82.9 % (42.0-75.0); Hemoglobin 7.3 g/dL (12.0-16.0); Mean Corpuscular HGB CONC 30.8 g/dL (32.0-36.0); Mean Corpuscular Hemoglobin 28.7 pg (27.0-31.0); Mean Corpuscular Volume 93.2 fL (78.0-98.0); Mean Platelet Volume 10.4 fL (7.4-10.4); Platelet Count 162 thou/uL (130-400); RBC Distribution Width 19.6 % (11.5-14.5); Red Blood Cell (RBC) Count 2.54 mill/uL (4.20-5.40); White Blood Cell (WBC) Count 9.3 thou/uL (4.8-10.8)
[2020-11-19 10:38] LABS: BUN (Urea Nitrogen) 40 mg/dL (9.8-20.1); Calc. Creatinine Clearance 60 mL/min (70-130); Calcium 8.7 mg/dL (7.8-10.44); Glucose 140 mg/dL (83-110); Magnesium 1.8 mg/dL (1.6-2.6); Phosphorus 3.5 mg/dL (2.3-4.7)
[2020-11-19 10:51] LABS: Anion Gap 13 mmol/L (10-20); Carbon Dioxide 40 mmol/L (23-31); Chloride 94 mmol/L (98-107); Potassium 4.7 mmol/L (3.5-5.1); Sodium 142 mmol/L (136-145)
[2020-11-19] MEDS ORDERED: AcetaZOLAMIDE ER 500 MG CAP PO SCH (11:45)
[2020-11-19 12:27] LABS: Actual Bicarbonate (HCO3a) 46.6 mEq/L (22-28); Calcium, Ionized (arterial) 1.12 mmol/L (1.12-1.30); Carboxyhemoglobin (COHb) 1.4 gm% (0.0-3.0); Hemoglobin (Hb) 7.2 g/dL (12.0-16.0); O2 Tension (PaO2), arterial 67.2 mmHg (> 70.0); Potassium - ABG Lab 4.58 mmol/L (3.70-5.30); pH, Arterial 7.42 (7.35-7.45)
[2020-11-19 12:32] LABS: CO2 Tension 72.8 mmHg (35.0-45.0); Puncture Site RRA
[2020-11-19] MEDS ORDERED: Magnesium 2 GM/50 ML 2 GM in Premix Bag 1 BAG IVPB SCH (13:15)
[2020-11-19] MEDS ORDERED: Acetaminophen 500 MG TAB PO SCH (21:30)
[2020-11-20] MEDS: Acetaminophen 500 MG TAB PO SCH ×3 (00:15→13:25)
[2020-11-20] MEDS: Sodium Chloride 0.9% 1,000 ML IV SCH ×2 (02:20→15:16)
[2020-11-20 07:36] LABS: BUN (Urea Nitrogen) 33 mg/dL (9.8-20.1); Calc. Creatinine Clearance 63 mL/min (70-130); Calcium 8.7 mg/dL (7.8-10.44); Glucose 142 mg/dL (83-110); Magnesium 2.4 mg/dL (1.6-2.6); Phosphorus 2.9 mg/dL (2.3-4.7)
[2020-11-20 07:45] LABS: Anion Gap 14 mmol/L (10-20); Carbon Dioxide 34 mmol/L (23-31); Chloride 98 mmol/L (98-107); Potassium 4.2 mmol/L (3.5-5.1); Sodium 142 mmol/L (136-145)
[2020-11-20] MEDS ORDERED: AcetaZOLAMIDE 250 MG TAB PO SCH (09:00)
[2020-11-20] MEDS: metFORMIN 500 MG TAB PO SCH (09:33)
[2020-11-20] MEDS: Senokot S 8.6-50 MG TAB PO SCH (09:33)
[2020-11-20] MEDS: Ascorbic Acid 500 mg Chewable Tablet PO SCH (09:33)
[2020-11-20] MEDS: Ferrous Sulfate 325 MG TAB PO SCH (09:33)
[2020-11-20] MEDS: Clopidogrel Bisulfate 75 MG TAB PO SCH (09:33)
[2020-11-20] MEDS: Polyethylene Glycol 3350 17 GM Packet PO SCH (09:34)
[2020-11-20 16:07] VITALS: BP 122/52; TEMP 98.7
== END 2020-11-20 17:25 | DRG 534 ==
LOC: ERS 07:18 → SJJU 12:10
PROVIDERS: ADMIT Surgery; ATTEND Surgery
PROC: 30233N1 Transfusion of Nonautologous Red Blood Cells into Peripheral Vein, Percutaneous Approach (ICD-10-PCS; principal; 2020-11-17)
PROC: 5A09357 Assistance with Respiratory Ventilation, Less than 24 Consecutive Hours, Continuous Positive Airway Pressure (ICD-10-PCS; 2020-11-20)
DX: S72.434A Nondisplaced fracture of medial condyle of right femur, initial encounter for closed fracture (principal); S72.435A Nondisplaced fracture of medial condyle of left femur, initial encounter for closed fracture; M97.01XA Periprosthetic fracture around internal prosthetic right hip joint, initial encounter; M97.02XA Periprosthetic fracture around internal prosthetic left hip joint, initial encounter; E87.4 Mixed disorder of acid-base balance; W18.30XA Fall on same level, unspecified, initial encounter; Z96.653 Presence of artificial knee joint, bilateral; I25.10 Atherosclerotic heart disease of native coronary artery without angina pectoris; J44.9 Chronic obstructive pulmonary disease, unspecified; D64.9 Anemia, unspecified; I11.0 Hypertensive heart disease with heart failure; I50.9 Heart failure, unspecified; Z99.81 Dependence on supplemental oxygen; Z90.710 Acquired absence of both cervix and uterus; Z95.5 Presence of coronary angioplasty implant and graft; Z88.5 Allergy status to narcotic agent; Z79.02 Long term (current) use of antithrombotics/antiplatelets; Z79.84 Long term (current) use of oral hypoglycemic drugs; Z79.899 Other long term (current) drug therapy
CPT/HCPCS: 36415; 36416; 36430; 36600; 71045; 80048; 80053; 81003; 82805; 83735; 83880; 84100; 85025; 85610; 85730; 86850; 86900; 86901; 94640; 94660; 96374; 96376; G0390; J2270; J3475; J7050; J7620; P9016